=== PATIENT | female | born 1930 ===

== ENCOUNTER 2017-06-08 14:46 | Inpatient (IN) | payer MEDICARE, MEDICAID ==
[2017-06-08 15:28] VITALS: BMI 26.4
--- NOTE | 2017-06-08 15:49 | ED PDOC ---
Arrival/HPI - General Chief Complaint: Abdominal Pain Time Seen by Provider: 06/08/17 15:26 Historian: Patient, Family (daughter) - History of Present Illness Narrative History of Present Illness (Text): 06/08/17 15:44 This 87 yo female with pmh chronic constipation, dm, htn, presents to this ED with daughter c/o LLQ abdominal pain x 2 week. Patient stated pain has been more frequent. Patient stated she has a decreased appetite. She noted she has been moving her bowel daily, but stool is hard, and very small amount. Patient has been taking Prune tabs daily. Patient denies sob, cp, n/v, urinary symptoms. Time/Duration: Other (2 weeks) Quality: Aching Context: Home Past Medical History - Provider Review Nursing Documentation Reviewed: Yes - Infectious Disease Hx of Infectious Diseases: None - Tetanus Immunization Tetanus Immunization: Up to Date - Reproductive Menopause: Yes - Cardiac Hx Hypertension: Yes Hx Pacemaker: No - Pulmonary Hx Emphysema: Yes - Neurological Hx Paralysis: No - Endocrine/Metabolic Hx Diabetes Mellitus Type 2: Yes - Hematological/Oncological Hx Blood Transfusions: No - Musculoskeletal/Rheumatological Hx Musculoskeletal Disorders: No - Psychiatric Hx Psychophysiologic Disorder: No Hx Anxiety: No Hx Bipolar Disorder: No Hx Depression: No Hx Emotional Abuse: No Hx Hallucinations: No Hx Panic Disorder: No Hx Post Traumatic Stress Disorder: No Hx Psychosis: No Hx Physical Abuse: No Hx Schizophrenia: No Hx Sexual Abuse: No Hx Substance Use: No - Past Surgical History Past Surgical History: No Previous - Anesthesia Hx Anesthesia: Yes Hx Anesthesia Reactions: No Hx Malignant Hyperthermia: No - Suicidal Assessment Feels Threatened In Home Enviroment: No Family/Social History - Physician Review Nursing Documentation Reviewed: Yes Family/Social History: Other (noncontributory) Smoking Status: Never Smoked Hx Alcohol Use: No Hx Substance Use: No Hx Substance Use Treatment: No Allergies/Home Meds Allergies/Adverse Reactions: Allergies atorvastatin calcium [From Lipitor] Allergy (Verified 06/08/17 15:28) DIARRHEA codeine Allergy (Verified 06/08/17 15:28) RASH Home Medications: Home Meds Medication Instructions Recorded Confirmed SITagliptin [Januvia] 50 mg PO DAILY 04/20/13 06/08/17 Ezetimibe [Zetia] 10 mg PO DAILY 07/30/15 06/08/17 Losartan [Cozaar] 100 mg PO DAILY 07/30/15 06/08/17 Rosuvastatin Calcium [Crestor] 20 mg PO DAILY 07/30/15 06/08/17 Budesonide [Pulmicort Respules] 0.5 mg IH Q12H 04/25/17 06/08/17 Carvedilol [Coreg] 3.125 mg PO BID 04/25/17 06/08/17 Cholecalciferol (Vitamin D3) 50,000 units PO Q7D 04/25/17 06/08/17 [Vitamin D3] Empagliflozin [Jardiance] 25 mg PO DAILY 04/25/17 06/08/17 Levalbuterol [Xopenex] 0.63 mg IH Q8H 04/25/17 06/08/17 Potassium Chloride [K-Tab ER] 10 meq PO DAILY 04/25/17 06/08/17 amLODIPine [Norvasc] 2.5 mg PO DAILY 04/25/17 06/08/17 Review of Systems - Review of Systems Constitutional: Normal. absent: Fatigue, Weight Change, Fevers Eyes: Normal ENT: Normal Respiratory: Normal. absent: SOB, Cough Cardiovascular: Normal. absent: Chest Pain, Palpitations Gastrointestinal: Abdominal Pain, Constipation. absent: Nausea, Vomiting Genitourinary Female: Normal. absent: Dysuria, Frequency, Hematuria Musculoskeletal: Normal. absent: Back Pain Skin: Normal. absent: Rash Neurological: Normal. absent: Headache, Dizziness, Focal Weakness, Gait Changes , Speech Changes Endocrine: Normal Hemo/Lymphatic: Normal Psychiatric: Normal Physical Exam Vital Signs Temp Pulse Resp BP Pulse Ox 06/08/17 15:22 98.7 F 94 H 18 126/80 96 Temperature: Afebrile Blood Pressure: Normal Pulse: Regular Respiratory Rate: Normal Appearance: Positive for: Well-Appearing, Non-Toxic, Comfortable Pain Distress: None Mental Status: Positive for: Alert and Oriented X 3 - Systems Exam Head: Present: Atraumatic, Normocephalic Pupils: Present: PERRL Extroacular Muscles: Present: EOMI Conjunctiva: Present: Normal Mouth: Present: Moist Mucous Membranes Neck: Present: Normal Range of Motion Respiratory/Chest: Present: Clear to Auscultation, Good Air Exchange. No: Respiratory Distress, Accessory Muscle Use Cardiovascular: Present: Regular Rate and Rhythm, Normal S1, S2. No: Murmurs Abdomen: Present: Tenderness (Mild LLQ abd. tenderness), Normal Bowel Sounds. No: Distention, Peritoneal Signs, Rebound, Guarding Back: Present: Normal Inspection. No: CVA Tenderness Upper Extremity: Present: Normal Inspection, Normal ROM. No: Cyanosis, Edema Lower Extremity: Present: Normal Inspection, Normal ROM. No: Edema Neurological: Present: GCS=15, CN II-XII Intact, Speech Normal, Motor Func Grossly Intact, Normal Sensory Function, Normal Cerebellar Funct, Gait Normal, Memory Normal Skin: Present: Warm, Dry, Normal Color. No: Rashes Psychiatric: Present: Alert, Oriented x 3, Normal Insight, Normal Concentration Medical Decision Making ED Course and Treatment: 06/08/17 21:[address] Dozier regarding Dx. diverticulitis. He recommended NPO, and agres with plan for admission. Re-evaluation Time: 21:39 Reassessment Condition: Re-examined, Improving,but remains with symptoms - Lab Interpretations Lab Results: 06/08/17 16:06 06/08/17 16:06 Lab Results 06/08/17 16:06: Sodium 139, Potassium 4.1, Chloride 99, Carbon Dioxide 29, Anion Gap 15, BUN 17, Creatinine 0.9, Est GFR ( Amer) > 60, Est GFR (Non- Af Amer) 59, Random Glucose 133 H, Calcium 10.0, Total Bilirubin 0.5, AST 35, ALT 26, Alkaline Phosphatase 73, Total Protein 7.7, Albumin 4.4, Globulin 3.3, Albumin/Globulin Ratio 1.3, Amylase 117, Lipase 100 06/08/17 16:06: PT 13.0 H, INR 1.14 H, APTT 26.2 06/08/17 16:06: WBC 12.0 H D, RBC 4.02, Hgb 12.5, Hct 37.8, MCV 94.0, MCH 31.1, MCHC 33.1, RDW 13.0, Plt Count 202, MPV 11.0, Gran % 78.1 H, Lymph % (Auto) 10.0 L, [place] % (Auto) 8.7 H, Eos % (Auto) 2.9, Baso % (Auto) 0.3, Gran # 9.35 H , Lymph # 1.2, [place] # 1.0 H, Eos # 0.4, Baso # 0.04 I have reviewed the lab results: Yes Interpretation: Abnormal lab values (elevated WBC) - RAD Interpretation Narrative RAD Interpretations (Text): 06/08/17 21:13 [facility] Division of Radiology [address] [place] [address] Tel. no. Patient Name: ALEYDA REYNAGA Pt. Address: [address] [place] [address]. Rec #: [id number] [place] [address]: Yajaira Easton PA-C Pt Order Location: ED : 1930 Female Age: 87 Order #: [id number] Reason for exam: LLQ abd. pain r/o obstruction CT Scan ABD PELVIS PO IV CONTRAST Exam Date: 06/08/17 This imaging exam was performed at [facility] EXAM: CT Abdomen and Pelvis With Intravenous Contrast CLINICAL HISTORY: 87 years old, female; Pain; Abdominal pain; Localized; Left lower quadrant (llq); Prior surgery; Surgery type: Cardiac cath 5 years ago; Additional info: Llq abd. Pain R/O obstruction TECHNIQUE: Axial computed tomography images of the abdomen and pelvis with intravenous contrast. All CT scans at this facility use one or more dose reduction techniques, viz.: automated exposure control; ma/kV adjustment per patient size (including targeted exams where dose is matched to indication; i.e. head); or iterative reconstruction technique. Coronal and sagittal reformatted images were created and reviewed. CONTRAST: 93 mL of OMNI 350 administered intravenously. COMPARISON: CT - ABD PELVIS PO CONTRAST ONLY 2016-06-08 07:37 FINDINGS: Limitations: Motion artifact - mild. Lower thorax: Mild peripheral atelectasis/scarring. 0.3 cm nodule vs focal scarring right lower lobe. Moderate-sized hiatal hernia. ABDOMEN: Liver: Unremarkable. No mass. Gallbladder and bile ducts: No calcified stones. No ductal dilation. Pancreas: Fat containing lesion or focal fatty replacement head of pancreas , doubtful significance. No ductal dilation. Spleen: No splenomegaly. Adrenals: No mass. Kidneys and ureters: Few too small to characterize lesions within kidneys. No hydronephrosis. Stomach and bowel: Scattered diverticula within colon. Moderate mural thickening short segment of distal sigmoid colon. Mild stranding within adjacent fat. No obstruction. Appendix: Normal caliber. No inflammation. PELVIS: Bladder: Unremarkable. Reproductive: Unremarkable as visualized. ABDOMEN and PELVIS: Intraperitoneal space: No significant fluid collection. No free air. Bones/joints: Mild degenerative changes of spine. No acute fracture. Soft tissues: Tiny umbilical hernia containing fat. Vasculature: Moderate atherosclerotic disease. No aneurysm. Retroaortic LEFT renal vein. Lymph nodes: No pathologically enlarged lymph nodes. IMPRESSION: 1. Findings compatible with acute diverticulitis of sigmoid colon. Recommend endoscopy following resolution. 2. Pulmonary nodules. For low-risk patients, no follow-up is necessary. For high-risk patients (smoking history or other known risk factors) an optional CT at 12 months could be performed. 3. Incidental/non-acute findings are described above. Dictated By: Salomón Freitas MD Dictated Date/Time: 06/08/172048 Signed By: Salomón Freitas MD Date Signed: 2048 Transcribed By: AALIYAH Transcribe Date/Time : 06/08/172048 [id number] Radiology Orders: 06/08/17 15:49 ABD PELVIS PO & IV CONTRAST [CT] Stat - Medication Orders Current Medication Orders: Ciprofloxacin (Cipro 400mg/200ml Dsw) 400 mg in 200 mls @ 133.3 mls/hr IVPB STAT STA PRN Reason: Protocol Stop: 06/08/17 22:43 Metronidazole (Flagyl) 500 mg in 100 mls @ 100 mls/hr IVPB STAT STA PRN Reason: Protocol Stop: 06/08/17 22:13 Discontinued Medications Famotidine (Pepcid) 20 mg IVP STAT STA Stop: 06/08/17 15:50 Last Admin: 06/08/17 16:16 Dose: 20 mg IVP Administration Document 06/08/17 16:16 RD (Rec: 06/08/17 16:16 RD [facility] [id number]) Charges for Administration # of IVP Administrations 1 Sodium Chloride (Sodium Chloride 0.9%) 500 mls @ 999 mls/hr IV .Q31M STA Stop: 06/08/17 16:21 Last Admin: 06/08/17 16:16 Dose: 999 mls/hr eMAR Start Stop Document 06/08/17 16:16 RD (Rec: 06/08/17 16:16 RD [facility] [id number]) Intravenous Solution Start Date 06/08/17 Start Time 16:16 End Date 06/08/17 End time 17:16 Total Infusion Time 60 Disposition/Present on Arrival - Present on Arrival Any Indicators Present on Arrival: No History of DVT/PE: No History of Uncontrolled Diabetes: No Urinary Catheter: No History of Decub. Ulcer: No History Surgical Site Infection Following: None - Disposition Have Diagnosis and Disposition been Completed?: Yes Diagnosis: Diverticulitis of sigmoid colon Disposition: HOSPITALIZED Disposition Time: 21:40 Patient Plan: Admission Condition: STABLE Referrals: Omer Olguin MD [Primary Care Provider] - Follow up with primary Forms: [employer] (Lithuanian)
[2017-06-08] MEDS ORDERED: Sodium Chloride 0.9% 500 ML IV STA (15:51)
[2017-06-08] MEDS ORDERED: Iohexol 240 (50 ml) ONE (15:54)
[2017-06-08 16:28] LABS: BASO # 0.04 K/mm3 (0.0-2.0); BASO % 0.3 % (0.0-3.0); EOS # 0.4 (0.0-0.7); EOS % 2.9 % (1.5-5.0); GRAN # 9.35 (1.4-6.5); GRAN % 78.1 % (50.0-68.0); HEMOGLOBIN 12.5 g/dL (12.0-16.0); LYMPH # 1.2 (1.2-3.4); MEAN CORPUSCULAR HEMOGLOBIN 31.1 pg (25.0-35.0); MEAN CORPUSCULAR HGB CONC 33.1 g/dl (31.0-37.0); MONO % 8.7 % (1.0-6.0); RBC 4.02 10^6/uL (3.5-6.1)
[2017-06-08 16:35] LABS: ALB/GLOB RATIO 1.3 (1.1-1.8); ALBUMIN 4.4 g/dL (3.0-4.8); ALT/SGPT 26 U/L (7-56); AMYLASE 117 U/L (35-125); AST/SGOT 35 U/L (14-36); BLOOD UREA NITROGEN 17 mg/dL (7-21); GFR AFRICAN-AMERICAN > 60; GFR NON-AFRICAN AMERICAN 59; LIPASE 100 U/L (23-300)
[2017-06-08 16:40] LABS: INR 1.14 (0.93-1.08); PARTIAL THROMBOPLASTIN TIME 26.2 Seconds (25.1-36.5)
[2017-06-08] MEDS ORDERED: Iohexol 350 MG/100 ML VIAL ONE (18:14)
--- NOTE | 2017-06-08 20:49 | CT ---
EXAM: CT Abdomen and Pelvis With Intravenous Contrast CLINICAL HISTORY: 87 years old, female; Pain; Abdominal pain; Localized; Left lower quadrant (llq); Prior surgery; Surgery type: Cardiac cath 5 years ago; Additional info: Llq abd. Pain R/O obstruction TECHNIQUE: Axial computed tomography images of the abdomen and pelvis with intravenous contrast. All CT scans at this facility use one or more dose reduction techniques, viz.: automated exposure control; ma/kV adjustment per patient size (including targeted exams where dose is matched to indication; i.e. head); or iterative reconstruction technique. Coronal and sagittal reformatted images were created and reviewed. CONTRAST: 93 mL of OMNI 350 administered intravenously. COMPARISON: CT - ABD PELVIS PO CONTRAST ONLY 2016-06-08 07:37 FINDINGS: Limitations: Motion artifact - mild. Lower thorax: Mild peripheral atelectasis/scarring. 0.3 cm nodule vs focal scarring right lower lobe. Moderate-sized hiatal hernia. ABDOMEN: Liver: Unremarkable. No mass. Gallbladder and bile ducts: No calcified stones. No ductal dilation. Pancreas: Fat containing lesion or focal fatty replacement head of pancreas, doubtful significance. No ductal dilation. Spleen: No splenomegaly. Adrenals: No mass. Kidneys and ureters: Few too small to characterize lesions within kidneys. No hydronephrosis. Stomach and bowel: Scattered diverticula within colon. Moderate mural thickening short segment of distal sigmoid colon. Mild stranding within adjacent fat. No obstruction. Appendix: Normal caliber. No inflammation. PELVIS: Bladder: Unremarkable. Reproductive: Unremarkable as visualized. ABDOMEN and PELVIS: Intraperitoneal space: No significant fluid collection. No free air. Bones/joints: Mild degenerative changes of spine. No acute fracture. Soft tissues: Tiny umbilical hernia containing fat. Vasculature: Moderate atherosclerotic disease. No aneurysm. Retroaortic LEFT renal vein. Lymph nodes: No pathologically enlarged lymph nodes. IMPRESSION: 1. Findings compatible with acute diverticulitis of sigmoid colon. Recommend endoscopy following resolution. 2. Pulmonary nodules. For low-risk patients, no follow-up is necessary. For high-risk patients (smoking history or other known risk factors) an optional CT at 12 months could be performed. 3. Incidental/non-acute findings are described above.
[2017-06-08] MEDS ORDERED: Ciprofloxacin 400mg/200ml D5W 400 MG/200 ML BAG IVPB STA (21:13)
[2017-06-08] MEDS ORDERED: metroNIDAZOLE IV 500 mg/100 ml 500 MG/100 ML BAG IVPB STA (21:14)
[2017-06-08 23:01] LABS: URINE BILIRUBIN NEGATIVE (NEGATIVE); URINE BLOOD NEGATIVE (NEGATIVE); URINE GLUCOSE (UA) NEGATIVE (NEGATIVE); URINE LEUKOCYTE ESTERASE MODERATE Leu/uL (NEGATIVE); URINE NITRATE NEGATIVE (NEGATIVE); URINE PROTEIN NEGATIVE mg/dL (<30 mg/dL); URINE UROBILINOGEN 0.2 E.U./dL (<1 E.U./dL)
[2017-06-08 23:02] LABS: URINE COLOR YELLOW (YELLOW)
[2017-06-08 23:03] LABS: URINE APPEARANCE CLEAR (CLEAR)
[2017-06-08 23:22] LABS: URINE RBC 0 - 2 /hpf (0-2)
[2017-06-08 23:23] LABS: URINE EPITHELIAL CELLS 0 - 2 /hpf (0-5)
[2017-06-08] MEDS ORDERED: Sodium Chloride 0.9% 1,000 ML IV SCH (23:30)
--- NOTE | 2017-06-09 01:32 | CP.PCM.HP ---
<Jignesh Cueto - Last Filed: 06/09/17 03:16> History of Present Illness - History of Present Illness History of Present Illness: Jignesh Cueto D.O. PGY-2, Admission H and P CC: abdominal pain/fullness for 2-3 days 87 year old Lithuanian female with a PMH of diverticulosis and previous diverticulitis, DM, emphysema, HTN who presented to [facility] on 06/08 with complaints of lower abdominal pain and fullness for the last 2-3 days. Patient states that the pain started insidiously and began to worsen, non-radiating, located over lower abdomen, worse on LLQ, 9/10 at it's worst, dull with sometimes sharp character, associated with constipation and some nausea but no emesis, not alleviated or worsened by anything. Patient was trying to work through the pain but realized it wasn't improving so given her history thought it best to come in. No recent travel. No sick contacts. Patient admits she does not eat a high fiber diet, is sometimes not compliant with her miralax, but does stay hydrated. PMD: Dr. Olguin PMH: as above PSH: reviewed SH: previous heavy smoker 1ppd x 66 years, quit ~10 years ago, no drugs FH: noncontributory Meds: reviewed Allergies: atorvastatin, codeine (uneasy, tachycardia) Present on Admission - Present on Admission Any Indicators Present on Admission: No Review of Systems - Constitutional Constitutional: absent: Anorexia, Chills - EENT Eyes: absent: Blind Spots, Blurred Vision Ears: absent: Decreased Hearing, Ear Discharge Nose/Mouth/Throat: absent: Epistaxis, Nasal Congestion - Cardiovascular Cardiovascular: absent: Chest Pain, Diaphoresis - Respiratory Respiratory: absent: Cough, Dyspnea - Gastrointestinal Gastrointestinal: Abdominal Pain, Constipation, Nausea. absent: Vomiting - Genitourinary Genitourinary: absent: Dysuria, Hematuria - Musculoskeletal Musculoskeletal: absent: Stiffness, Tingling - Integumentary Integumentary: absent: Pruritus, Rash - Neurological Neurological: absent: Tingling, Tremor Past Patient History - Infectious Disease Hx of Infectious Diseases: None - Tetanus Immunizations Tetanus Immunization: Up to Date - Past Social History Smoking Status: Never Smoked - CARDIAC Hx Hypertension: Yes Hx Pacemaker: No - PULMONARY Hx Emphysema: Yes - NEUROLOGICAL Hx Paralysis: No - ENDOCRINE/METABOLIC Hx Diabetes Mellitus Type 2: Yes - HEMATOLOGICAL/ONCOLOGICAL Hx Blood Transfusions: No - MUSCULOSKELETAL/RHEUMATOLOGICAL Hx Musculoskeletal Disorders: No - PSYCHIATRIC Hx Psychophysiologic Disorder: No Hx Anxiety: No Hx Bipolar Disorder: No Hx Depression: No Hx Emotional Abuse: No Hx Hallucinations: No Hx Panic Symptoms: No Hx Post Traumatic Stress Disorder: No Hx Psychosis: No Hx Physical Abuse: No Hx Schizophrenia: No Hx Sexual Abuse: No Hx Substance Use: No - SURGICAL HISTORY Hx Surgeries: Yes (CARDIAC CATH-NO STENTS ABOUT 5 YRS AGO) - ANESTHESIA Hx Anesthesia: Yes Hx Anesthesia Reactions: No Hx Malignant Hyperthermia: No Meds Allergies/Adverse Reactions: Allergies Allergy/AdvReac Type Severity Reaction Status Date / Time atorvastatin calcium Allergy DIARRHEA Verified 06/08/17 15:28 [From Lipitor] codeine Allergy RASH Verified 06/08/17 15:28 Physical Exam - Constitutional Appears: Non-toxic, No Acute Distress - Head Exam Head Exam: ATRAUMATIC, NORMOCEPHALIC - Eye Exam Eye Exam: EOMI, PERRL. absent: Scleral icterus - ENT Exam ENT Exam: Mucous Membranes Moist - Neck Exam Neck exam: Positive for: Normal Inspection - Respiratory Exam Respiratory Exam: Clear to Auscultation Bilateral. absent: Rhonchi, Wheezes - Cardiovascular Exam Cardiovascular Exam: RRR, +S1, +S2. absent: Gallop, Rubs - GI/Abdominal Exam GI & Abdominal Exam: Distended (mild), Soft, Tenderness (LLQ). absent: Firm - Extremities Exam Extremities exam: Negative for: calf tenderness, tenderness - Neurological Exam Neurological exam: Alert, Oriented x3 - Psychiatric Exam Psychiatric exam: Normal Affect, Normal Mood - Skin Skin Exam: Dry, Warm Results - Vital Signs Recent Vital Signs: Last Vital Signs Temp 98.7 F 06/08/17 15:22 Pulse 92 H 06/08/17 22:01 Resp 18 06/08/17 22:01 BP 124/80 06/08/17 22:01 Pulse Ox 97 06/08/17 22:01 - Labs Result Diagrams: 06/08/17 16:06 06/08/17 16:06 Labs: Laboratory Results - last 24 hr 06/08/17 22:33 Urine Color Yellow Urine Appearance Clear Urine pH 6.0 Ur Specific [facility] 1.010 Urine Protein Negative Urine Glucose (UA) Negative Urine Ketones Negative Urine Blood Negative Urine Nitrate Negative Urine Bilirubin Negative Urine Urobilinogen 0.2 Ur Leukocyte Esterase Moderate H Urine RBC 0 - 2 Urine WBC 2 - 5 Ur Epithelial Cells 0 - 2 Assessment & Plan - Assessment and Plan (Free Text) Assessment: 87 year old Lithuanian female with a PMH of diverticulosis and previous diverticulitis, DM, emphysema, HTN who presented with complaints of lower abdominal pain and fullness for the last 2-3 days Plan: 1. Diverticulitis Admitted to med surg CT abd/pelvis reviewed personally and reviewed radiologist read, consistent with acute sigmoid diverticulitis Started on metro/ceftriaxone D1 Started PPI Started toradol PRN pain NPO NS @ 100 Education provided, all questions welcomed and answered 2. DM Hold oral hypoglycemics Started RISS-med Accuchecks 3. HTN NPO so started hydralazine 10mg IVP q6h PRN 4. Emphysema Continue pulmicort Added PRN duonebs for SOB 5. HLD Hold meds now as NPO GI/DVT ppx: PPI/SCDs Patient was seen and examined and case was discussed at length with attending physician. - Date & Time Date: 06/09/17 Time: 01:00 <Bud Dozier MD - Last Filed: 06/10/17 10:55> Results - Vital Signs Recent Vital Signs: Last Vital Signs Temp 97.5 F L 06/10/17 08:38 Pulse 75 06/10/17 08:38 Resp 20 06/10/17 08:38 BP 104/55 L 06/10/17 08:38 Pulse Ox 100 06/10/17 08:38 - Labs Result Diagrams: 06/10/17 09:15 06/10/17 09:15 Labs: Laboratory Results - last 24 hr 06/09/17 06/09/17 06/09/17 12:31 16:42 21:34 WBC RBC Hgb Hct MCV MCH MCHC RDW Plt Count MPV Sodium Potassium Chloride Carbon Dioxide Anion Gap BUN Creatinine Est GFR ( Amer) Est GFR (Non-Af Amer) POC Glucose (mg/dL) 150 H 167 H 107 Random Glucose Calcium Total Bilirubin AST ALT Alkaline Phosphatase Total Protein Albumin Globulin Albumin/Globulin Ratio 06/10/17 06/10/17 06/10/17 06:31 09:15 09:15 WBC 7.2 D RBC 3.41 L Hgb 10.3 L Hct 32.6 L MCV 95.6 MCH 30.2 MCHC 31.6 RDW 13.4 Plt Count 152 MPV 11.0 Sodium 138 Potassium 3.5 L Chloride 104 Carbon Dioxide 25 Anion Gap 12 BUN 8 Creatinine 0.9 Est GFR ( Amer) > 60 Est GFR (Non-Af Amer) 59 POC Glucose (mg/dL) 172 H Random Glucose 223 H Calcium 8.9 Total Bilirubin 0.3 AST 24 ALT 30 Alkaline Phosphatase 57 Total Protein 6.1 Albumin 3.2 Globulin 2.8 Albumin/Globulin Ratio 1.1 Attending/Attestation - Attestation I have personally seen and examined this patient.: Yes I have fully participated in the care of the patient.: Yes I have reviewed all pertinent clinical information: Yes Notes (Text): -I agree with the above H&P completed by the resident physician with the following additions and/or changes: -The patient is an 87 year old woman with a history of diverticulitis, HTN, emphysema, NIDDM and HL who is being admitted for acute sigmoid diverticulitis. She will be started on IV Flagyl and Cipro and kept NPO for bowel rest (with IVF s). The patients response to antibiotic therapy overnight will likely better determine if a GI consult is necessary in the morning.
[2017-06-09 02:04] VITALS: RESP 20
[2017-06-09] MEDS ORDERED: Albuterol-Ipratrop 3 mg / 0.5 (3 ml) UD IH PRN (03:14)
[2017-06-09] MEDS: metroNIDAZOLE IV 500 mg/100 ml 500 MG/100 ML BAG IVPB SCH ×3 (06:22→23:01)
[2017-06-09 06:36] LABS: BASO # 0.04 K/mm3 (0.0-2.0); BASO % 0.3 % (0.0-3.0); EOS # 0.1 (0.0-0.7); EOS % 0.7 % (1.5-5.0); GRAN # 9.75 (1.4-6.5); GRAN % 78.1 % (50.0-68.0); HEMOGLOBIN 11.9 g/dL (12.0-16.0); LYMPH # 1.6 (1.2-3.4); MEAN CELL VOLUME 93.8 fl (80.0-105.0); MEAN CORPUSCULAR HEMOGLOBIN 30.6 pg (25.0-35.0); MEAN CORPUSCULAR HGB CONC 32.6 g/dl (31.0-37.0); MEAN PLATELET VOLUME 11.4 fl (7.0-11.0); MONO % 7.9 % (1.0-6.0); RBC 3.89 10^6/uL (3.5-6.1); RED CELL DISTRIBUTION WIDTH 13.4 % (11.5-14.5); WHITE BLOOD COUNT 12.5 10^3/ul (4.5-11.0)
[2017-06-09 07:11] LABS: ALB/GLOB RATIO 1.2 (1.1-1.8); ALBUMIN 3.8 g/dL (3.0-4.8); ALT/SGPT 27 U/L (7-56); AST/SGOT 30 U/L (14-36); BLOOD UREA NITROGEN 11 mg/dL (7-21); CALCIUM 9.4 mg/dL (8.4-10.5); GFR AFRICAN-AMERICAN > 60; GFR NON-AFRICAN AMERICAN > 60
[2017-06-09] MEDS: Budesonide 0.5 mg/2 ml Inhal Susp UD IH SCH ×3 (07:19→21:04)
[2017-06-09] MEDS: Dextrose 5%/0.45% NS 1,000 ML IV SCH (08:21)
[2017-06-09] MEDS: Insulin Reg-MEDIUM-Coverage SC SCH ×5 (08:32→23:07)
[2017-06-09] MEDS: cefTRIAXone 2 GM IN NS 2 GM/100 ML BAG IVPB SCH (10:00)
[2017-06-09] MEDS ORDERED: Ciprofloxacin 400mg/200ml D5W 400 MG/200 ML BAG IVPB SCH (10:00)
--- NOTE | 2017-06-09 20:21 | CARD ---
APPROVED REPORT EKG Measurement Heart [id number] <Conclusion> Normal sinus rhythm Nonspecific ST and T wave abnormality Abnormal ECG
[2017-06-10] MEDS: Dextrose 5%/0.45% NS 1,000 ML IV SCH (03:40)
[2017-06-10] MEDS: metroNIDAZOLE IV 500 mg/100 ml 500 MG/100 ML BAG IVPB SCH (06:26)
[2017-06-10] MEDS: Insulin Reg-MEDIUM-Coverage SC SCH (06:34)
[2017-06-10] MEDS: Budesonide 0.5 mg/2 ml Inhal Susp UD IH SCH (08:21)
[2017-06-10 08:39] VITALS: BP 104/55; PULSE 75; TEMP 97.5; O2SAT 100
[2017-06-10 09:24] LABS: HEMOGLOBIN 10.3 g/dL (12.0-16.0); MEAN CELL VOLUME 95.6 fl (80.0-105.0); MEAN CORPUSCULAR HEMOGLOBIN 30.2 pg (25.0-35.0); MEAN CORPUSCULAR HGB CONC 31.6 g/dl (31.0-37.0); RBC 3.41 10^6/uL (3.5-6.1); RED CELL DISTRIBUTION WIDTH 13.4 % (11.5-14.5); WHITE BLOOD COUNT 7.2 10^3/ul (4.5-11.0)
[2017-06-10] MEDS ORDERED: Dextrose 5%/0.45% NS 1,000 ML IV SCH (09:24)
[2017-06-10 09:32] LABS: ALB/GLOB RATIO 1.1 (1.1-1.8); ALBUMIN 3.2 g/dL (3.0-4.8); ALT/SGPT 30 U/L (7-56); AST/SGOT 24 U/L (14-36); BLOOD UREA NITROGEN 8 mg/dL (7-21); CALCIUM 8.9 mg/dL (8.4-10.5); GFR AFRICAN-AMERICAN > 60; GFR NON-AFRICAN AMERICAN 59
[2017-06-10] MEDS: cefTRIAXone 2 GM IN NS 2 GM/100 ML BAG IVPB SCH (11:05)
--- NOTE | 2017-06-10 12:34 | CP.PCM.DIS ---
<Emerson Kidd - Last Filed: 06/10/17 12:25> Provider - Provider Date of Admission: 06/08/17 21:40 Attending physician: Bunny Greer MD Primary care physician: Omer Olguin MD Consults: GI: Michelle Time Spent in preparation of Discharge (in minutes): 45 Hospital Course - Lab Results Lab Results: Micro Results 06/08/17 21:58 Blood Blood Culture - Preliminary NO GROWTH AFTER 24 HOURS Most Recent Lab Values WBC 7.2 10^3/ul (4.5-11.0) D 06/10/17 09:15 RBC 3.41 10^6/uL (3.5-6.1) L 06/10/17 09:15 Hgb 10.3 g/dL (12.0-16.0) L 06/10/17 09:15 Hct 32.6 % (36.0-48.0) L 06/10/17 09:15 MCV 95.6 fl (80.0-105.0) 06/10/17 09:15 MCH 30.2 pg (25.0-35.0) 06/10/17 09:15 MCHC 31.6 g/dl (31.0-37.0) 06/10/17 09:15 RDW 13.4 % (11.5-14.5) 06/10/17 09:15 Plt Count 152 10^3/uL (120.0-450.0) 06/10/17 09:15 MPV 11.0 fl (7.0-11.0) 06/10/17 09:15 Gran % 78.1 % (50.0-68.0) H 06/09/17 05:30 Lymph % (Auto) 13.0 % (22.0-35.0) L 06/09/17 05:30 Dare % (Auto) 7.9 % (1.0-6.0) H 06/09/17 05:30 Eos % (Auto) 0.7 % (1.5-5.0) L 06/09/17 05:30 Baso % (Auto) 0.3 % (0.0-3.0) 06/09/17 05:30 Gran # 9.75 (1.4-6.5) H 06/09/17 05:30 Lymph # 1.6 (1.2-3.4) 06/09/17 05:30 Dare # 1.0 (0.1-0.6) H 06/09/17 05:30 Eos # 0.1 (0.0-0.7) 06/09/17 05:30 Baso # 0.04 K/mm3 (0.0-2.0) 06/09/17 05:30 PT 13.0 SECONDS (9.4-12.5) H 06/08/17 16:06 INR 1.14 (0.93-1.08) H 06/08/17 16:06 APTT 26.2 Seconds (25.1-36.5) 06/08/17 16:06 Sodium 138 mmol/L (132-148) 06/10/17 09:15 Potassium 3.5 mmol/L (3.6-5.0) L 06/10/17 09:15 Chloride 104 mmol/L (98-107) 06/10/17 09:15 Carbon Dioxide 25 mmol/L (21-33) 06/10/17 09:15 Anion Gap 12 (10-20) 06/10/17 09:15 BUN 8 mg/dL (7-21) 06/10/17 09:15 Creatinine 0.9 mg/dl (0.7-1.2) 06/10/17 09:15 Est GFR ( Amer) > 60 06/10/17 09:15 Est GFR (Non-Af Amer) 59 06/10/17 09:15 POC Glucose (mg/dL) 180 mg/dL (65-110) H 06/10/17 11:10 Random Glucose 223 mg/dL (70-110) H 06/10/17 09:15 Calcium 8.9 mg/dL (8.4-10.5) 06/10/17 09:15 Total Bilirubin 0.3 mg/dL (0.2-1.3) 06/10/17 09:15 AST 24 U/L (14-36) 06/10/17 09:15 ALT 30 U/L (7-56) 06/10/17 09:15 Alkaline Phosphatase 57 U/L (38-126) 06/10/17 09:15 Total Protein 6.1 g/dL (5.8-8.3) 06/10/17 09:15 Albumin 3.2 g/dL (3.0-4.8) 06/10/17 09:15 Globulin 2.8 gm/dL 06/10/17 09:15 Albumin/Globulin Ratio 1.1 (1.1-1.8) 06/10/17 09:15 Amylase 117 U/L (35-125) 06/08/17 16:06 Lipase 100 U/L (23-300) 06/08/17 16:06 Urine Color Yellow (YELLOW) 06/08/17 22:33 Urine Appearance Clear (CLEAR) 06/08/17 22:33 Urine pH 6.0 (4.7-8.0) 06/08/17:33 Ur Specific [place] 1.010 (1.005-1.035) 06/08/17:33 Urine Protein Negative mg/dL (<30 mg/dL) 06/08/17 22:33 Urine Glucose (UA) Negative mg/dL (NEGATIVE) 06/08/17: Urine Ketones Negative mg/dL (NEGATIVE) 06/08/17 22:33 Urine Blood Negative (NEGATIVE) 06/08/17 22:33 Urine Nitrate Negative (NEGATIVE) 06/08/17 22:33 Urine Bilirubin Negative (NEGATIVE) 06/08/17:33 Urine Urobilinogen 0.2 E.U./dL (<1 E.U./dL) 06/08/17 22:33 Ur Leukocyte Esterase Moderate Mellissa/uL (NEGATIVE) H 06/08/17 22:33 Urine RBC 0 - 2 /hpf (0-2) 06/08/17 22:33 Urine WBC 2 - 5 /hpf (0-6) 06/08/17 22:33 Ur Epithelial Cells 0 - 2 /hpf (0-5) 06/08/17 22:33 - Hospital Course Hospital Course: 87 year old [place] female with a PMH of diverticulosis and previous diverticulitis, DM, emphysema, HTN who presented to [facility] ER on 06/08 with complaints of lower abdominal pain and fullness for 2-3 days prior to admission. Patient stated that the pain started insidiously and began to worsen , non-radiating, located over lower abdomen, worse on LLQ, 9/10 at it's worst, dull with sometimes sharp character, associated with constipation and some nausea but no emesis, not alleviated or worsened by anything. Patient admits she does not eat a high fiber diet, is sometimes not compliant with her miralax , but does stay hydrated. CT abd/pelvis reviewed personally and reviewed radiologist read, consistent with acute sigmoid diverticulitis. WBC mildly elevated at 12.0. Pt was admitted for evaluation and treatment for acute diverticulitis. Today, patient was seen and examined at bedside. Pt states she still had some episodes of diarrhea, but no abdominal pain, hematochezia, or melena. Patient tolerated diet well. As patient's symptoms had improved, she was cleared by GI. Pt was given prescription for 14 day course of ciprofloxacin and flagyl. She was advised to maintain low residue diet and follow up with GI for outpatient colonscopy. Pt was advised to resume her home medications as prescribed. Pt acknowledged and was discharged. Discharge Diagnosis 1. Acute Sigmoid Diverticulitis 2. Diabetes Mellitus Type 2 3. Hypertension 4. COPD Discharge Medications - Ciprofloxacin 500 mg PO BID x14 days - Flagyl 500 mg PO TID x14 days Discharge Exam - Head Exam Head Exam: ATRAUMATIC, NORMOCEPHALIC - Eye Exam Eye Exam: Normal appearance - ENT Exam ENT Exam: Normal Exam - Neck Exam Neck exam: Normal Inspection - Respiratory Exam Respiratory Exam: Clear to PA & Lateral. absent: Rales, Rhonchi, Wheezes - Cardiovascular Exam Cardiovascular Exam: RRR, +S1, +S2. absent: Diastolic murmur, Gallop, Rubs, Systolic Murmur - GI/Abdominal Exam GI & Abdominal Exam: Soft. absent: Distended, Guarding, Rebound, Tenderness - Extremities Exam Extremities exam: normal inspection - Back Exam Back exam: NORMAL INSPECTION - Neurological Exam Neurological exam: Alert, Oriented x3 - Psychiatric Exam Psychiatric exam: Normal Affect, Normal Mood - Skin Skin Exam: Dry, Intact, Normal Color, Warm Discharge Plan - Discharge Medications Prescriptions: Ciprofloxacin HCl [Cipro] 500 mg PO BID 14 Days tablet Metronidazole [Flagyl] 500 mg PO TID 14 Days tablet - Follow Up Plan Condition: STABLE Disposition: HOME/ ROUTINE Instructions: Diverticulitis (DC), Diverticulitis Diet (DC) Additional Instructions: 1. Follow up with PMD within 1 week 2. Follow up with gastroenterology for outpatient colonscopy 3. Complete 14 day course of Ciprofloxacin and Flagyl 4. May resume home medications as prescribed 5. Maintain low residue diet 6. If symptoms worsen please return to ED Referrals: Omer Olguin MD [Primary Care Provider] - Juwan Martinez MD [Staff Provider] - <Deborah Villagran - Last Filed: 06/10/17 15:19> Provider - Provider Date of Admission: 06/08/17 21:40 Attending physician: Bunny Greer MD Primary care physician: Omer Olguin MD Hospital Course - Lab Results Lab Results: Micro Results 06/08/17 21:58 Blood Blood Culture - Preliminary NO GROWTH AFTER 24 HOURS Most Recent Lab Values WBC 7.2 10^3/ul (4.5-11.0) D 06/10/17 09:15 RBC 3.41 10^6/uL (3.5-6.1) L 06/10/17 09:15 Hgb 10.3 g/dL (12.0-16.0) L 06/10/17 09:15 Hct 32.6 % (36.0-48.0) L 06/10/17 09:15 MCV 95.6 fl (80.0-105.0) 06/10/17 09:15 MCH 30.2 pg (25.0-35.0) 06/10/17 09:15 MCHC 31.6 g/dl (31.0-37.0) 06/10/17 09:15 RDW 13.4 % (11.5-14.5) 06/10/17 09:15 Plt Count 152 10^3/uL (120.0-450.0) 06/10/17 09:15 MPV 11.0 fl (7.0-11.0) 06/10/17 09:15 Gran % 78.1 % (50.0-68.0) H 06/09/17 05:30 Lymph % (Auto) 13.0 % (22.0-35.0) L 06/09/17 05:30 Dare % (Auto) 7.9 % (1.0-6.0) H 06/09/17 05:30 Eos % (Auto) 0.7 % (1.5-5.0) L 06/09/17 05:30 Baso % (Auto) 0.3 % (0.0-3.0) 06/09/17 05:30 Gran # 9.75 (1.4-6.5) H 06/09/17 05:30 Lymph # 1.6 (1.2-3.4) 06/09/17 05:30 Dare # 1.0 (0.1-0.6) H 06/09/17 05:30 Eos # 0.1 (0.0-0.7) 06/09/17 05:30 Baso # 0.04 K/mm3 (0.0-2.0) 06/09/17 05:30 PT 13.0 SECONDS (9.4-12.5) H 06/08/17 16:06 INR 1.14 (0.93-1.08) H 06/08/17 16:06 APTT 26.2 Seconds (25.1-36.5) 06/08/17 16:06 Sodium 138 mmol/L (132-148) 06/10/17 09:15 Potassium 3.5 mmol/L (3.6-5.0) L 06/10/17 09:15 Chloride 104 mmol/L (98-107) 06/10/17 09:15 Carbon Dioxide 25 mmol/L (21-33) 06/10/17 09:15 Anion Gap 12 (10-20) 06/10/17 09:15 BUN 8 mg/dL (7-21) 06/10/17 09:15 Creatinine 0.9 mg/dl (0.7-1.2) 06/10/17 09:15 Est GFR ( Amer) > 60 06/10/17 09:15 Est GFR (Non-Af Amer) 59 06/10/17 09:15 POC Glucose (mg/dL) 180 mg/dL (65-110) H 06/10/17 11:10 Random Glucose 223 mg/dL (70-110) H 06/10/17 09:15 Calcium 8.9 mg/dL (8.4-10.5) 06/10/17 09:15 Total Bilirubin 0.3 mg/dL (0.2-1.3) 06/10/17 09:15 AST 24 U/L (14-36) 06/10/17 09:15 ALT 30 U/L (7-56) 06/10/17 09:15 Alkaline Phosphatase 57 U/L (38-126) 06/10/17 09:15 Total Protein 6.1 g/dL (5.8-8.3) 06/10/17 09:15 Albumin 3.2 g/dL (3.0-4.8) 06/10/17 09:15 Globulin 2.8 gm/dL 06/10/17 09:15 Albumin/Globulin Ratio 1.1 (1.1-1.8) 06/10/17 09:15 Amylase 117 U/L (35-125) 06/08/17 16:06 Lipase 100 U/L (23-300) 06/08/17 16:06 Urine Color Yellow (YELLOW) 06/08/17 22:33 Urine Appearance Clear (CLEAR) 06/08/17 22: Urine pH 6.0 (4.7-8.0) 06/08/17 22:33 Ur Specific [place] 1.010 (1.005-1.035) 06/08/17 22:33 Urine Protein Negative mg/dL (<30 mg/dL) 06/08/17 22:33 Urine Glucose (UA) Negative mg/dL (NEGATIVE) 06/08/17 22:33 Urine Ketones Negative mg/dL (NEGATIVE) 06/08/17 22:33 Urine Blood Negative (NEGATIVE) 06/08/17 22:33 Urine Nitrate Negative (NEGATIVE) 06/08/17 22:33 Urine Bilirubin Negative (NEGATIVE) 06/08/17 22:33 Urine Urobilinogen 0.2 E.U./dL (<1 E.U./dL) 06/08/17 22:33 Ur Leukocyte Esterase Moderate Mellissa/uL (NEGATIVE) H 06/08/17 22:33 Urine RBC 0 - 2 /hpf (0-2) 06/08/17 22:33 Urine WBC 2 - 5 /hpf (0-6) 06/08/17 22:33 Ur Epithelial Cells 0 - 2 /hpf (0-5) 06/08/17 22:33 Attending/Attestation - Attestation I have personally seen and examined this patient.: Yes I have fully participated in the care of the patient.: Yes I have reviewed all pertinent clinical information, including history, physical exam and plan: Yes Notes (Text): 06/10/17 15:18 Attending note; Patient seen and examined with the resident. Patient's daughter by the bedside. Patient is 87-year-old female admitted with acute diverticulitis. This is her third episode. Treated with IV Rocephin and Flagyl. Leukocytosis resolved. Abdominal pain resolved. Started on low-residue diet. GI evaluation with Dr. Martinez appreciated. We will get outpatient colonoscopy in 6-8 weeks. Patient's family informed. Discharge home with 14 days of by mouth ciprofloxacin and Flagyl. The patient will follow-up with PMD Dr. Olguin in 3 days.
--- NOTE | 2017-06-10 21:45 | CON ---
DATE: 06/10/2017 GASTROENTEROLOGY CONSULTATION REQUESTING PHYSICIAN: Dr. Villagran REASON FOR CONSULTATION: I have been asked to see this 87-year-old female with known history of diverticulitis, who comes to the hospital with 2 to 3 days of left lower quadrant abdominal pain associated with constipation. The patient denies any fevers or chills. She has had an episode of diverticulitis within the last year. The patient was scheduled for a colonoscopy in 07/2016, but did not show up for her colonoscopy. The patient admits to occasional constipation. She is noncompliant with her MiraLax. PAST MEDICAL HISTORY: Notable for hypertension, type 2 diabetes mellitus, COPD, and diverticulitis. SOCIAL HISTORY: She is a former heavy smoker, having smoked one to two packs a day for over 50 years. She quit about 10 years ago. She denies alcohol use. FAMILY HISTORY: Noncontributory. REVIEW OF SYSTEMS: A 14-point review of systems is notable for left lower quadrant abdominal pain and constipation. MEDICATIONS AT HOME: Include Crestor 20 mg daily, Carvedilol 3.125 mg twice a day, budesonide 0.5 mg q. 12 hours, Norvasc 2.5 mg daily, Januvia 50 mg daily, potassium chloride 10 mg once a day, Cozaar 100 mg daily, Xopenex 0.63 mg q. 8 hours, Zetia 10 mg daily, Jardiance 25 mg daily and vitamin D3 50,000 units weekly. PHYSICAL EXAMINATION: GENERAL: Well-developed female, lying in bed, in no acute distress. VITAL SIGNS: Reveal temperature of 97.5, blood pressure 104/55, heart rate of 75. HEENT: Reveal sclerae to be white. Conjunctivae pink. NECK: Supple. CHEST: Reveal lungs to be clear. HEART: Exam reveals regular rate and rhythm. ABDOMEN: Soft, nontender. EXTREMITIES: Show no edema. LABORATORY DATA: Reveal white blood cell count 7.2, down from 12.0, hemoglobin 10.3. Chemistries reveal potassium of 3.5, blood sugar 223. IMPRESSION: 1. Sigmoid diverticulitis. CT scan of the abdomen and pelvis reveal mural thickening of the sigmoid colon with mild pericolonic inflammation and diverticulosis which confirms the diagnosis. Clinically, she is better this morning without any further abdominal pain. She is moving her bowels and now actually has some diarrhea. 2. Chronic constipation. 3. 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 4. Diabetes mellitus. RECOMMENDATIONS: 1. We will advance the patient to a low residue diet. 2. The patient can be discharged home on 14 days of Cipro 500 b.i.d. and Flagyl 500 t.i.d. 3. I have asked the patient to take MiraLax once to twice a day as needed for constipation. 4. Elective colonoscopy if the patient is agreeable. Juwan Martinez MD
== END 2017-06-10 14:18 | disposition home or self-care (01) | DRG 392 ==
LOC: ED 14:46 → ERH 21:40 → 3RNO 06-09 00:49
PROVIDERS: ADMIT Internal Medicine; ATTEND Internal Medicine
DX: K57.32 Diverticulitis of large intestine without perforation or abscess without bleeding (principal); E11.9 Type 2 diabetes mellitus without complications; J43.9 Emphysema, unspecified; K59.09 Other constipation; I10 Essential (primary) hypertension; D72.829 Elevated white blood cell count, unspecified; Z87.891 Personal history of nicotine dependence

== ENCOUNTER 2017-07-12 08:15 | Day surgery (SDC) | payer MEDICARE, MEDICAID ==
[2017-07-11 11:16] VITALS: BMI 27.3
[2017-07-12] MEDS ORDERED: Propofol 10 mg/ml Inj (20 ML) ONE (09:46)
[2017-07-12] MEDS ORDERED: Sodium Chloride 0.9% 1,000 ML IV SCH (10:30)
[2017-07-12 11:56] VITALS: BP 109/58; PULSE 86; RESP 17; TEMP 97.8; O2SAT 95
[2017-07-13] MEDS ORDERED: Amiodarone 360 mg/D5W 200 ml 360 MG/200 ML BAG IV ONE (11:07)
== END 2017-07-12 12:01 | disposition home or self-care (01) ==
LOC: ENDO 08:15
PROVIDERS: ATTEND Specialist
DX: K55.21 Angiodysplasia of colon with hemorrhage (principal); D12.3 Benign neoplasm of transverse colon; K57.30 Diverticulosis of large intestine without perforation or abscess without bleeding; K64.8 Other hemorrhoids; D64.9 Anemia, unspecified; I12.9 Hypertensive chronic kidney disease with stage 1 through stage 4 chronic kidney disease, or unspecified chronic kidney disease; E11.22 Type 2 diabetes mellitus with diabetic chronic kidney disease; N18.9 Chronic kidney disease, unspecified; J44.9 Chronic obstructive pulmonary disease, unspecified; E78.5 Hyperlipidemia, unspecified; M81.0 Age-related osteoporosis without current pathological fracture
CPT/HCPCS: 45385; 82948; 88305; J2704; J7040 ×2

== ENCOUNTER 2018-04-14 13:17 | Inpatient (IN) | payer MEDICARE, MEDICAID ==
[2018-04-14] MEDS: Albuterol-Ipratrop 3 mg / 0.5 (3 ml) UD IH SCH ×4 (13:40→21:30)
[2018-04-14] MEDS ORDERED: Magnesium Sulfate 2 gm/50 ml 2 GM/50 ML BAG IVPB ONE (13:47)
--- NOTE | 2018-04-14 14:20 | ED PDOC ---
Arrival/HPI - General Chief Complaint: Shortness Of Breath Time Seen by Provider: 04/14/18 13:31 Historian: Patient - History of Present Illness Narrative History of Present Illness (Text): 04/14/18 13:50 88 year old female, whose past medical history includes diverticulosis and previous diverticulitis, diabetes, emphysema, and hypertension, presents to the emergency department complaining of shortness of breath for the past couple of days. Patient was treated with nebulizer and course of steroid by her PMD for the past week. Patient states she felt better with the steroids, but soon after 3 days ago, the shortness of breath started. She denies any recent travel. Patient also complaining of productive cough with white phlegm, but denies any fever, chills, chest pain, nausea, vomiting, diarrhea, urinary symptoms, back p ain, neck pain, headache, dizziness, or any other complaints. PMD: Dr. Olguin Time/Duration: Other (couple days) Symptom Onset: Gradual Symptom Course: Unchanged Activities at Onset: Light Context: Home Past Medical History - Provider Review Nursing Documentation Reviewed: Yes - Infectious Disease Hx of Infectious Diseases: None - Tetanus Immunization Tetanus Immunization: Up to Date - Reproductive Menopause: Yes - Cardiac Hx Hypertension: Yes - Pulmonary Hx Emphysema: Yes - Neurological Hx Paralysis: No - Renal Other/Comment: L renal deficiency - Endocrine/Metabolic Hx Diabetes Mellitus Type 2: Yes - Hematological/Oncological Hx Blood Transfusions: No - Musculoskeletal/Rheumatological Hx Musculoskeletal Disorders: Yes - Gastrointestinal Other/Comment: Peptic ulcers, - Psychiatric Hx Emotional Abuse: No Hx Physical Abuse: No Hx Substance Use: No - Past Surgical History Past Surgical History: No Previous - Surgical History Hx Cardiac Catheterization: Yes - Anesthesia Hx Anesthesia Reactions: No Hx Malignant Hyperthermia: No - Suicidal Assessment Feels Threatened In Home Enviroment: No Family/Social History - Physician Review Nursing Documentation Reviewed: Yes Family/Social History: No Known Family HX Smoking Status: Never Smoked Hx Alcohol Use: (SOCIALLY) Hx Substance Use: No Hx Substance Use Treatment: No Allergies/Home Meds Allergies/Adverse Reactions: Allergies atorvastatin calcium [From Lipitor] Allergy (Verified 06/08/17 15:28) DIARRHEA codeine Allergy (Verified 06/08/17 15:28) RASH Home Medications: Home Meds Medication Instructions Recorded Confirmed RX: Ezetimibe [Zetia] 10 mg PO DAILY 07/30/15 04/14/18 RX: Rosuvastatin Calcium [Crestor] 20 mg PO DAILY 07/30/15 04/14/18 RX: Carvedilol [Coreg] 3.125 mg PO BID 04/25/17 04/14/18 RX: Cholecalciferol (Vitamin D3) 50,000 units PO Q7D 04/25/17 04/14/18 [Vitamin D3] RX: Meclizine [Antivert] 12.5 mg PO PRN 04/14/18 04/14/18 RX: Omeprazole 40 mg PO DAILY 04/14/18 04/14/18 RX: SITagliptin [Januvia] 50 mg PO DAILY 04/14/18 04/14/18 Review of Systems - Physician Review All systems were reviewed & negative as marked: Yes - Review of Systems Constitutional: absent: Fevers, Other (Chills) Respiratory: SOB, Cough Cardiovascular: absent: Chest Pain Gastrointestinal: absent: Diarrhea, Nausea, Vomiting Genitourinary Female: absent: Dysuria, Frequency, Hematuria Musculoskeletal: absent: Back Pain, Neck Pain Neurological: absent: Headache, Dizziness Physical Exam Vital Signs Reviewed: Yes Vital Signs Temp Pulse Resp BP Pulse Ox 04/14/18 13:40 100 F H 98 H 20 119/61 95 Temperature: Febrile Blood Pressure: Normal Pulse: Regular Respiratory Rate: Normal Appearance: Positive for: Well-Appearing, Non-Toxic, Comfortable Pain Distress: None Mental Status: Positive for: Alert and Oriented X 3 - Systems Exam Head: Present: Atraumatic, Normocephalic Pupils: Present: PERRL Extroacular Muscles: Present: EOMI Conjunctiva: Present: Normal Mouth: Present: Moist Mucous Membranes Neck: Present: Normal Range of Motion Respiratory/Chest: Present: Wheezes (expiratory wheeze bilaterally ), Decreased Breath Sounds (mild diminished breath sounds bilaterally). No: Respiratory Distress, Accessory Muscle Use Cardiovascular: Present: Regular Rate and Rhythm, Normal S1, S2. No: Murmurs Abdomen: No: Tenderness, Distention, Peritoneal Signs Back: Present: Normal Inspection Upper Extremity: Present: Normal Inspection. No: Cyanosis, Edema Lower Extremity: Present: Normal Inspection. No: Edema Neurological: Present: GCS=15, CN II-XII Intact, Speech Normal Skin: Present: Warm, Dry, Normal Color. No: Rashes Psychiatric: Present: Alert, Oriented x 3, Normal Insight, Normal Concentration Medical Decision Making ED Course and Treatment: 04/14/18 13:50 Impression: 88 year old female presents complaining of shortness of breath for the past couple days. PE shows mild diminished breath sounds bilaterally and expiratory wheeze bilaterally. Plan: -- EKG -- labs -- Duoneb, Magnesium Sulfate, Solu-Medrol -- Blood Culture -- Influenza A B -- Reassess and disposition Prior Visits: Notes and results from previous visits were reviewed. Progress Notes: PROCEDURE: Chest X-ray Dictator : Precious Carballo MD Report Date : 04/14/2018 14:18:12 IMPRESSION: Mild bibasilar atelectasis. Mild cardiomegaly. EKG shows Sinus tachycardia at 103 BPM. Interpreted by me. 04/14/18 16:03 On re-evaluation, patient feels better, but is still wheezing. Paged hospitalist for admission. 04/14/18 16:[address] Aguirre who is aware and agrees with the plan. Accepts patient to hospitalist service. - Lab Interpretations I have reviewed the lab results: Yes - RAD Interpretation Radiology Orders: 04/14/18 13:46 CHEST PORTABLE [RAD] Stat Graduate Student Instructor: Radiologist - EKG Interpretation Interpreted by ED Physician: Yes Type: 12 lead EKG - Medication Orders Current Medication Orders: Albuterol/Ipratropium (Duoneb 3 Mg/0.5 Mg (3 Ml) Ud) 3 ml IH Q15M KALEE Last Admin: 04/14/18 14:11 Dose: 3 ml Magnesium Sulfate (Magnesium Sulfate 2 Gm/50 Ml Water) 2 gm in 50 mls @ 50 mls/hr IVPB ONCE ONE Stop: 04/14/18 14:46 Last Admin: 04/14/18 14:09 Dose: 50 mls/hr eMAR Start Stop Document 04/14/18 14:09 ARNIE (Rec: 04/14/18 14:09 ARNIE [id number]) Intravenous Solution Start Date 04/14/18 Start Time 14:09 End Date 04/14/18 End time 15:09 Total Infusion Time 60 Discontinued Medications Methylprednisolone (Solu-Medrol) 125 mg IVP STAT STA Stop: 04/14/18 13:46 Last Admin: 04/14/18 14:09 Dose: 125 mg IVP Administration Document 04/14/18 14:09 ARNIE (Rec: 04/14/18 14:09 ARNIE [id number]) Charges for Administration # of IVP Administrations 1 - Scribe Statement The provider has reviewed the documentation as recorded by the Griselda Serrato Provider Scribe Attestation: All medical record entries made by the Scribe were at my direction and personally dictated by me. I have reviewed the chart and agree that the record accurately reflects my personal performance of the history, physical exam, medical decision making, and the department course for this patient. I have also personally directed, reviewed, and agree with the discharge instructions and disposition. Disposition/Present on Arrival - Present on Arrival Any Indicators Present on Arrival: No History of DVT/PE: No History of Uncontrolled Diabetes: No Urinary Catheter: No History of Decub. Ulcer: No History Surgical Site Infection Following: None - Disposition Have Diagnosis and Disposition been Completed?: Yes Diagnosis: COPD (chronic obstructive pulmonary disease) Disposition: HOSPITALIZED Disposition Time: 15:30 Condition: STABLE
--- NOTE | 2018-04-14 14:22 | RAD ---
HISTORY: Cough, rule out infiltrate COMPARISON: Chest x-ray performed 03/20/14 TECHNIQUE: Chest, one view. FINDINGS: LUNGS: Mild bibasilar atelectasis. No focal consolidation. Please note that chest x-ray has limited sensitivity for the detection of pulmonary masses. PLEURA: No significant pleural effusion identified. No definite pneumothorax . CARDIOVASCULAR: Mild cardiomegaly. Atherosclerotic calcification present. OSSEOUS STRUCTURES: Osseous demineralization. Degenerative changes. Acromioclavicular arthropathy. VISUALIZED UPPER ABDOMEN: Unremarkable. OTHER FINDINGS: None. IMPRESSION: Mild bibasilar atelectasis. Mild cardiomegaly.
[2018-04-14 14:28] LABS: ALB/GLOB RATIO 1.2 (1.1-1.8); ALBUMIN 3.8 g/dL (3.0-4.8); ALT/SGPT 24 U/L (7-56); AST/SGOT 24 U/L (14-36); BLOOD UREA NITROGEN 14 mg/dL (7-21); CALCIUM 9.6 mg/dL (8.4-10.5); GFR NON-AFRICAN AMERICAN 52
[2018-04-14 14:46] LABS: B-TYPE NATRIURETIC PEPTIDE 225 pg/mL (0-450); TROPONIN I 0.01 ng/mL
[2018-04-14 15:01] LABS: BASO # 0.03 K/mm3 (0.0-2.0); BASO % 0.2 % (0.0-3.0); EOS # 0.1 (0.0-0.7); EOS % 0.5 % (1.5-5.0); GRAN # 10.72 (1.4-6.5); GRAN % 81.8 % (50.0-68.0); HEMOGLOBIN 9.8 g/dL (12.0-16.0); LYMPH # 1.2 (1.2-3.4); LYMPH % 9.2 % (22.0-35.0); MEAN CELL VOLUME 89.5 fl (80.0-105.0); MEAN CORPUSCULAR HEMOGLOBIN 28.5 pg (25.0-35.0); MEAN CORPUSCULAR HGB CONC 31.8 g/dl (31.0-37.0); MEAN PLATELET VOLUME 10.6 fl (7.0-11.0); MONO # 1.1 (0.1-0.6); MONO % 8.3 % (1.0-6.0); RBC 3.44 10^6/uL (3.5-6.1); RED CELL DISTRIBUTION WIDTH 14.6 % (11.5-14.5); WHITE BLOOD COUNT 13.1 10^3/uL (4.5-11.0)
[2018-04-14] MEDS ORDERED: Albuterol-Ipratrop 3 mg / 0.5 (3 ml) UD IH PRN (18:26)
--- NOTE | 2018-04-14 19:13 | CP.PCM.HP ---
<Nelida Crump - Last Filed: 04/14/18 20:24> History of Present Illness - History of Present Illness History of Present Illness: Nelida Crump DO PGY-1 Medicine H&P Note for Dr. Medina: Pt is a 88 year old female with pmhx of diverticulosis, diverticulitis, DM, emphysema, and HTN who presents to the emergency department complaining of SOB x 3 days. Pt was treated with nebulizer and course of steroid by her PMD for the past week. Pt states she felt better with the steroids initially but then had a return of symptoms 3 days ago. She states that she uses her home nebulizer treatment 4x/day for the last 3 days. Pt also complaining of productive cough with white phlegm, but denies any fever, chills, chest pain, nausea, vomiting, diarrhea, urinary symptoms, back pain, neck pain, headache, dizziness, or any other complaints. Pmhx: Diverticulosis, diverticulitis, DM, emphysema, and HTN Pshx: Denies Meds: Coreg 3.125 BID, Crestor 20 QD, Norvasc 2.5 QD, Zetia 10 QD, losartan 100 QD All: Codeine - rash Social: Denies any tobacco use, admits to beer once every week or 2, no illicit drug use Fam: Non-contributory PMD: Olguin Present on Admission - Present on Admission Any Indicators Present on Admission: No Review of Systems - Review of Systems All systems: reviewed and no additional remarkable complaints except Review of Systems: 12 point ROS reviewed and negative except for whats noted in HPI above. Past Patient History - Infectious Disease Hx of Infectious Diseases: None - Tetanus Immunizations Tetanus Immunization: Up to Date - Past Social History Smoking Status: Never Smoked - CARDIAC Hx Hypertension: Yes - PULMONARY Hx Emphysema: Yes - NEUROLOGICAL Hx Paralysis: No - RENAL Other/Comment: L renal deficiency - ENDOCRINE/METABOLIC Hx Diabetes Mellitus Type 2: Yes - HEMATOLOGICAL/ONCOLOGICAL Hx Blood Transfusions: No - MUSCULOSKELETAL/RHEUMATOLOGICAL Hx Musculoskeletal Disorders: Yes - GASTROINTESTINAL Other/Comment: Peptic ulcers, - PSYCHIATRIC Hx Emotional Abuse: No Hx Physical Abuse: No Hx Substance Use: No - SURGICAL HISTORY Hx Cardiac Catheterization: Yes - ANESTHESIA Hx Anesthesia Reactions: No Hx Malignant Hyperthermia: No Meds Allergies/Adverse Reactions: Allergies Allergy/AdvReac Type Severity Reaction Status Date / Time atorvastatin calcium Allergy DIARRHEA Verified 06/08/17 15:28 [From Lipitor] codeine Allergy RASH Verified 06/08/17 15:28 Physical Exam - Constitutional Appears: Well, Non-toxic, No Acute Distress - Head Exam Head Exam: ATRAUMATIC, NORMAL INSPECTION, NORMOCEPHALIC - Eye Exam Eye Exam: EOMI, Normal appearance, PERRL - Respiratory Exam Respiratory Exam: Decreased Breath Sounds, Wheezes (mild expiratory wheezing noted but is not present diffusely in all lung dobson.), NORMAL BREATHING PATTERN. absent: Accessory Muscle Use, Rales, Rhonchi, Respiratory Distress - Cardiovascular Exam Cardiovascular Exam: RRR, +S1, +S2. absent: Gallop, Rubs - GI/Abdominal Exam GI & Abdominal Exam: Normal Bowel Sounds, Soft. absent: Firm, Rebound, Rigid, Tenderness - Extremities Exam Extremities exam: Positive for: normal capillary refill, normal inspection, pedal pulses present. Negative for: calf tenderness, pedal edema - Back Exam Back exam: NORMAL INSPECTION. absent: CVA tenderness (L), CVA tenderness (R) - Neurological Exam Neurological exam: Alert, Oriented x3 - Psychiatric Exam Psychiatric exam: Normal Affect, Normal Mood - Skin Skin Exam: Dry, Intact, Normal Color, Warm Results - Vital Signs Recent Vital Signs: Last Vital Signs Temp 100 F H 04/14/18 13:40 Pulse 98 H 04/14/18 18:04 Resp 20 04/14/18 18:04 BP 109/73 04/14/18 18:04 Pulse Ox 95 04/14/18 18:04 - Labs Result Diagrams: 04/14/18 14:00 04/14/18 14:00 Labs: Laboratory Results - last 24 hr 04/14/18 04/14/18 04/14/18 14:00 14:00 14:00 WBC 13.1 H RBC 3.44 L Hgb 9.8 L Hct 30.8 L MCV 89.5 D MCH 28.5 MCHC 31.8 RDW 14.6 H Plt Count 261 MPV 10.6 Gran % 81.8 H Lymph % (Auto) 9.2 L Burnett % (Auto) 8.3 H Eos % (Auto) 0.5 L Baso % (Auto) 0.2 Gran # 10.72 H Lymph # (Auto) 1.2 Burnett # (Auto) 1.1 H Eos # (Auto) 0.1 Baso # (Auto) 0.03 Sodium 137 Potassium 4.2 Chloride 101 Carbon Dioxide 28 Anion Gap 12 BUN 14 Creatinine 1.0 Est GFR ( Amer) > 60 Est GFR (Non-Af Amer) 52 Random Glucose 147 H Calcium 9.6 Magnesium 1.9 Total Bilirubin 0.9 AST 24 ALT 24 Alkaline Phosphatase 88 Lactate Dehydrogenase 391 Total Creatine Kinase 34 L Troponin I 0.01 NT-Pro-B Natriuret Pep 225 Total Protein 7.1 Albumin 3.8 Globulin 3.3 Albumin/Globulin Ratio 1.2 Influenza Typ A,B (EIA) Negative for flu a/b Assessment & Plan - Assessment and Plan (Free Text) Assessment: Pt is a 88 year old female with pmhx of diverticulosis, diverticulitis, DM, emphysema, and HTN who presents to the emergency department complaining of SOB x 3 days. In the ED CXR showed mild bibasilar atelectasis, pt is afebrile but has elevated WBC count. Plan: 1. COPD exacerbation: - Already had outpt treatment 1 week ago, but pts symptoms returned - CXR: Mild bibasilar infiltrates - Zithromycin 500 PO today, then 250mg PO x 4 days, emperic coverage - Duonebs Q4 KALEE, Q2 PRN - Solumedrol 40mg IVP - Flu (-) 2. Anemia: - Hgb is 9.8 - Stable from previous admission, will continue to monitor 3. Leukocytosis likely 2/2 steroid use: - Pt is afebrile - Pt on steroids now so likely be elevated upon checking again, but will continue to monitor 4. Hx DM: - ISS - Medium - A1c - Will continue to monitor 5. Hx HTN: - Cont norvasc, coreg, Cozaar 6. Hx HLD: - Cont home Rosuvastatin, Zetia 7. PPX: - DVT: Lovenox 40sc QD - GI: Protnoix 40mg QD <Aroldo Medina - Last Filed: 04/15/18 13:38> Results - Vital Signs Recent Vital Signs: Last Vital Signs Temp 98.1 F 04/15/18 06:19 Pulse 80 04/15/18 11:43 Resp 19 04/15/18 06:19 BP 100/50 L 04/15/18 11:43 Pulse Ox 95 04/14/18 22:10 - Labs Result Diagrams: 04/15/18 06:00 04/15/18 06:00 Labs: Laboratory Results - last 24 hr 04/14/18 04/14/18 04/14/18 14:00 14:00 14:00 WBC 13.1 H RBC 3.44 L Hgb 9.8 L Hct 30.8 L MCV 89.5 D MCH 28.5 MCHC 31.8 RDW 14.6 H Plt Count 261 MPV 10.6 Gran % 81.8 H Lymph % (Auto) 9.2 L Burnett % (Auto) 8.3 H Eos % (Auto) 0.5 L Baso % (Auto) 0.2 Gran # 10.72 H Lymph # (Auto) 1.2 Burnett # (Auto) 1.1 H Eos # (Auto) 0.1 Baso # (Auto) 0.03 Neutrophils % (Manual) Band Neutrophils % Lymphocytes % (Manual) Monocytes % (Manual) Platelet Evaluation Sodium 137 Potassium 4.2 Chloride 101 Carbon Dioxide 28 Anion Gap 12 BUN 14 Creatinine 1.0 Est GFR ( Amer) > 60 Est GFR (Non-Af Amer) 52 POC Glucose (mg/dL) Random Glucose 147 H Calcium 9.6 Magnesium 1.9 Total Bilirubin 0.9 AST 24 ALT 24 Alkaline Phosphatase 88 Lactate Dehydrogenase 391 Total Creatine Kinase 34 L Troponin I 0.01 NT-Pro-B Natriuret Pep 225 Total Protein 7.1 Albumin 3.8 Globulin 3.3 Albumin/Globulin Ratio 1.2 Influenza Typ A,B (EIA) Negative for flu a/b 04/14/18 04/15/18 04/15/18 21:29 05:45 06:00 WBC 11.1 H RBC 3.38 L Hgb 9.4 L Hct 29.7 L MCV 87.9 MCH 27.8 MCHC 31.6 RDW 14.4 Plt Count 253 MPV 10.4 Gran % 93.6 H Lymph % (Auto) 4.1 L Burnett % (Auto) 2.3 Eos % (Auto) 0.0 L Baso % (Auto) 0.0 Gran # 10.37 H Lymph # (Auto) 0.5 L Burnett # (Auto) 0.3 Eos # (Auto) 0.0 Baso # (Auto) 0.00 Neutrophils % (Manual) 86 H Band Neutrophils % 5 H Lymphocytes % (Manual) 6 L Monocytes % (Manual) 3 Platelet Evaluation Normal Sodium Potassium Chloride Carbon Dioxide Anion Gap BUN Creatinine Est GFR ( Amer) Est GFR (Non-Af Amer) POC Glucose (mg/dL) 218 H 253 H Random Glucose Calcium Magnesium Total Bilirubin AST ALT Alkaline Phosphatase Lactate Dehydrogenase Total Creatine Kinase Troponin I NT-Pro-B Natriuret Pep Total Protein Albumin Globulin Albumin/Globulin Ratio Influenza Typ A,B (EIA) 04/15/18 04/15/18 06:00 11:03 WBC RBC Hgb Hct MCV MCH MCHC RDW Plt Count MPV Gran % Lymph % (Auto) Burnett % (Auto) Eos % (Auto) Baso % (Auto) Gran # Lymph # (Auto) Burnett # (Auto) Eos # (Auto) Baso # (Auto) Neutrophils % (Manual) Band Neutrophils % Lymphocytes % (Manual) Monocytes % (Manual) Platelet Evaluation Sodium 135 Potassium 4.2 Chloride 99 Carbon Dioxide 22 Anion Gap 18 BUN 30 H Creatinine 2.4 H Est GFR ( Amer) 23 Est GFR (Non-Af Amer) 19 POC Glucose (mg/dL) 286 H Random Glucose 256 H Calcium 9.2 Magnesium Total Bilirubin 0.4 AST 20 ALT 24 Alkaline Phosphatase 84 Lactate Dehydrogenase Total Creatine Kinase Troponin I NT-Pro-B Natriuret Pep Total Protein 7.1 Albumin 3.7 Globulin 3.3 Albumin/Globulin Ratio 1.1 Influenza Typ A,B (EIA) Attending/Attestation - Attestation I have personally seen and examined this patient.: Yes I have fully participated in the care of the patient.: Yes I have reviewed all pertinent clinical information: Yes Notes (Text): 04/15/18 13:36 Medical record note made by the resident after discussion with my direction and input after the patient was personally seen and examined by me. I have reviewed the chart and agree that the record accurately reflects by personal performance of the history, physical exam, data review, and medical decision-making, in the course for the patient. I have also personally directed the plan of care. 88 year old female with PMH of diverticulosis, diverticulitis, DM, emphysema, and HTN with COPD exacerbation. Continue Neb/Steroid and antibiotics. Monitor blood sugars closely as patient will be receiving steroid . Management plan was discussed in detail with patient. Education was provided.
[2018-04-14] MEDS: Insulin Lispro (humaLOG) MEDIUM Coverage SC SCH (22:56)
[2018-04-15] MEDS: Albuterol-Ipratrop 3 mg / 0.5 (3 ml) UD IH SCH ×6 (00:37→21:00)
[2018-04-15 05:31] VITALS: BMI 23.3
[2018-04-15 06:21] LABS: GRAN # 10.37 (1.4-6.5); GRAN % 93.6 % (50.0-68.0); HEMOGLOBIN 9.4 g/dL (12.0-16.0); LYMPH # 0.5 (1.2-3.4); LYMPH % 4.1 % (22.0-35.0); MEAN CELL VOLUME 87.9 fl (80.0-105.0); MEAN CORPUSCULAR HEMOGLOBIN 27.8 pg (25.0-35.0); MEAN CORPUSCULAR HGB CONC 31.6 g/dl (31.0-37.0); MEAN PLATELET VOLUME 10.4 fl (7.0-11.0); MONO # 0.3 (0.1-0.6); MONO % 2.3 % (1.0-6.0); PLATELET COUNT 253 10^3/uL (120.0-450.0); RBC 3.38 10^6/uL (3.5-6.1); RED CELL DISTRIBUTION WIDTH 14.4 % (11.5-14.5); WHITE BLOOD COUNT 11.1 10^3/uL (4.5-11.0)
[2018-04-15 06:25] LABS: ALB/GLOB RATIO 1.1 (1.1-1.8); ALBUMIN 3.7 g/dL (3.0-4.8); CALCIUM 9.2 mg/dL (8.4-10.5)
[2018-04-15 08:14] LABS: BAND 5 % (0-2); LYMPHOCYTE 6 % (22.0-35.0); MONOCYTE 3 % (1.0-6.0); NEUTROPHIL 86 % (50.0-70.0); PLATELET ESTIMATE NORMAL (NORMAL)
[2018-04-15] MEDS: Insulin Lispro (humaLOG) MEDIUM Coverage SC SCH ×2 (08:25→11:48)
[2018-04-15] MEDS: Pantoprazole 40 mg EC Tab PO SCH (08:25)
--- NOTE | 2018-04-15 09:14 | CARD ---
APPROVED REPORT Date of service: 04/14/2018 EKG Measurement Heart [id number] <Conclusion> Normal sinus rhythm Incomplete LBBB ST & T wave abnormality, consider lateral ischemia Abnormal ECG
[2018-04-15] MEDS ORDERED: Non Formulary Medication (Omeprazole [Omeprazole] 40 MG) PO SCH (10:00)
[2018-04-15] MEDS: MethylPREDNISolone 40 mg Vial IVP SCH (10:05)
[2018-04-15] MEDS: Enoxaparin 40 mg Syringe SC SCH (10:06)
--- NOTE | 2018-04-15 15:54 | CP.PCM.PN ---
<Nelida Crump - Last Filed: 04/15/18 16:31> Subjective - Date & Time of Evaluation Date of Evaluation: 04/15/18 Time of Evaluation: 15:50 - Subjective Subjective: Nelida Crump, PGY-1 Medicine Progress Note for Dr. Medina: Pt was seen and examined this morning at bedside. She states that her breathing is improved from yesterday and that she is doing better. She denies having any acute overnight events. She still admits to a cough, but states that it is improved from admission. She is currently denying fevers, chills, headache, chest pain, SOB, n/v, c/d, abd pain, dysuria, or hematuria. She is denying any other acute complaints at this time. Objective - Vital Signs/Intake and Output Vital Signs (last 24 hours): Temp Pulse Resp BP Pulse Ox 98.1 F 102 H 18 93/48 L 94 L 04/15/18 15:36 04/15/18 15:36 04/15/18 15:36 04/15/18 15:36 04/15/18 15:36 Intake and Output: 04/15/18 04/15/18 06:59 18:59 Intake Total 0 Balance 0 - Medications Medications: Current Medications Acetaminophen (Tylenol 325mg Tab) 650 mg PO Q6H PRN PRN Reason: Fever >100.4 F Acetaminophen (Tylenol 325mg Tab) 650 mg PO Q6H PRN PRN Reason: Headache Albuterol/Ipratropium (Duoneb 3 Mg/0.5 Mg (3 Ml) Ud) 3 ml IH Q2H PRN PRN Reason: Shortness of Breath Albuterol/Ipratropium (Duoneb 3 Mg/0.5 Mg (3 Ml) Ud) 3 ml IH [id number] [facility] Last Admin: 04/15/18 11:10 Dose: 3 ml Azithromycin (Zithromax) 250 mg PO DAILY KALEE; Taper; Protocol Stop: 04/19/18 09:59 Last Admin: 04/15/18 10:05 Dose: 250 mg Budesonide (Pulmicort Respules) 1 mg IH [id number] [facility] Carvedilol (Coreg) 3.125 mg PO BID [facility] Last Admin: 04/15/18 09:57 Dose: Not Given Ezetimibe (Zetia) 10 mg PO DAILY [facility] Last Admin: 04/15/18 10:10 Dose: 10 mg Enoxaparin Sodium (Lovenox) 40 mg SC DAILY [facility]; Protocol Last Admin: 04/15/18 10:06 Dose: 40 mg Famotidine (Pepcid) 20 mg PO 1000,2200 [facility] Last Admin: 04/15/18 10:05 Dose: 20 mg Insulin Human Regular (Humulin R High) 0 units SC ACHS [facility]; Protocol Losartan Potassium (Cozaar) 25 mg PO DAILY [facility] Last Admin: 04/15/18 11:43 Dose: Not Given Methylprednisolone (Solu-Medrol) 40 mg IVP DAILY [facility] Last Admin: 04/15/18 10:05 Dose: 40 mg Non-Formulary Medication (Cholecalciferol (Vitamin D3) [Vitamin D3]) 50,000 units PO Q7D [facility] Crestor ( (Rosuvastatin) 20mg) 20 mg PO DAILY [facility] Pantoprazole Sodium (Protonix Ec Tab) 40 mg PO ACB [facility] Last Admin: 04/15/18 08:25 Dose: 40 mg - Labs Labs: 04/15/18 06:00 04/15/18 06:00 - Constitutional Appears: Well, Non-toxic, No Acute Distress - Head Exam Head Exam: ATRAUMATIC, NORMAL INSPECTION, NORMOCEPHALIC - Eye Exam Eye Exam: EOMI, Normal appearance, PERRL - Respiratory Exam Respiratory Exam: Clear to Ausculation Bilateral, NORMAL BREATHING PATTERN. absent: Accessory Muscle Use, Decreased Breath Sounds, Rales, Rhonchi, Wheezes, Stridor - Cardiovascular Exam Cardiovascular Exam: RRR, +S1, +S2. absent: Gallop, Rubs - GI/Abdominal Exam GI & Abdominal Exam: Soft, Normal Bowel Sounds. absent: Tenderness - Extremities Exam Extremities Exam: Full ROM, Normal Capillary Refill, Normal Inspection - Back Exam Back Exam: NORMAL INSPECTION. absent: CVA tenderness (L), CVA tenderness (R) - Neurological Exam Neurological Exam: Alert, Awake, Oriented x3 - Psychiatric Exam Psychiatric exam: Normal Affect, Normal Mood - Skin Skin Exam: Dry, Intact, Normal Color, Warm Assessment and Plan - Assessment and Plan (Free Text) Assessment: Pt is a 88 year old female with pmhx of diverticulosis, diverticulitis, DM, emphysema, and HTN who presents to the emergency department complaining of SOB x 3 days. In the ED CXR showed mild bibasilar atelectasis, pt is afebrile but has elevated WBC count. Plan: 1. COPD exacerbation: - Already had outpt treatment 1 week ago, but pts symptoms returned - CXR: Mild bibasilar infiltrates - Zithromycin 250mg PO x 4 days, emperic coverage - Duonebs Q4 KALEE, Q2 PRN - Solumedrol 40mg IVP - Flu (-) 2. Anemia: - Hgb is 9.8 - Stable from previous admission, will continue to monitor 3. Leukocytosis likely 2/2 steroid use: - Pt is afebrile - Pt on steroids now so likely be elevated upon checking again, but will continue to monitor 4. Hx DM: - ISS - Medium - A1c - Will continue to monitor 5. Hx HTN: - Cont norvasc, coreg, Cozaar 6. Hx HLD: - Cont home Rosuvastatin, Zetia 7. PPX: - DVT: Lovenox 40sc QD - GI: Protnoix 40mg QD Dispo: Pending PT Case seen and discussed with Dr. Adam Crump DO Internal Medicine Resident PGY-1 <Aroldo Medina - Last Filed: 04/16/18 18:34> Objective - Vital Signs/Intake and Output Vital Signs (last 24 hours): Temp Pulse Resp BP Pulse Ox 98.2 F 93 H 20 142/66 93 L 04/16/18 14:00 04/16/18 14:00 04/16/18 14:00 04/16/18 14:00 04/16/18 14:00 - Medications Medications: Current Medications Acetaminophen (Tylenol 325mg Tab) 650 mg PO Q6H PRN PRN Reason: Fever >100.4 F Acetaminophen (Tylenol 325mg Tab) 650 mg PO Q6H PRN PRN Reason: Headache Albuterol/Ipratropium (Duoneb 3 Mg/0.5 Mg (3 Ml) Ud) 3 ml IH Q2H PRN PRN Reason: Shortness of Breath Albuterol/Ipratropium (Duoneb 3 Mg/0.5 Mg (3 Ml) Ud) 3 ml IH [id number] Last Admin: 04/16/18 15:44 Dose: 3 ml Budesonide (Pulmicort Respules) 1 mg IH [id number] [facility] Last Admin: 04/16/18 07:41 Dose: 1 mg Carvedilol (Coreg) 3.125 mg PO BID [facility] Last Admin: 04/16/18 11:01 Dose: Not Given Ezetimibe (Zetia) 10 mg PO DAILY [facility] Last Admin: 04/15/18 10:10 Dose: 10 mg Enoxaparin Sodium (Lovenox) 30 mg SC DAILY [facility]; Protocol Sodium Chloride (Sodium Chloride 0.9%) 1,000 mls @ 100 mls/hr IV .Q10H [facility] Last Admin: 04/16/18 11:03 Dose: 100 mls/hr Insulin Human Regular (Humulin R High) 0 units SC ACHS [facility]; Protocol Last Admin: 04/16/18 12:53 Dose: 10 units Losartan Potassium (Cozaar) 25 mg PO DAILY [facility] Last Admin: 04/16/18 11:00 Dose: 25 mg Non-Formulary Medication (Cholecalciferol (Vitamin D3) [Vitamin D3]) 50,000 units PO Q7D [facility] Crestor ( (Rosuvastatin) 20mg) 20 mg PO DAILY [facility] Last Admin: 04/16/18 11:03 Dose: Not Given Ondansetron HCl (Zofran Inj) 4 mg IVP Q6H PRN PRN Reason: Nausea/Vomiting Last Admin: 04/15/18 21:31 Dose: 4 mg Pantoprazole Sodium (Protonix Ec Tab) 40 mg PO ACB [facility] Last Admin: 04/16/18 11:00 Dose: 40 mg - Labs Labs: 04/16/18 06:45 04/16/18 06:45 Attending/Attestation - Attestation I have personally seen and examined this patient.: Yes I have fully participated in the care of the patient.: Yes I have reviewed all pertinent clinical information, including history, physical exam and plan: Yes Notes (Text): 04/16/18 18:34 Medical record note made by the resident after discussion with my direction and input after the patient was personally seen and examined by me. I have reviewed the chart and agree that the record accurately reflects by personal performance of the history, physical exam, data review, and medical decision-making, in the course for the patient. I have also personally directed the plan of care.
[2018-04-15] MEDS: Insulin Reg-HIGH-Coverage SC SCH ×2 (18:05→21:56)
[2018-04-16] MEDS: Albuterol-Ipratrop 3 mg / 0.5 (3 ml) UD IH SCH ×7 (00:09→23:40)
[2018-04-16 07:15] LABS: GRAN # 11.16 (1.4-6.5); GRAN % 91.3 % (50.0-68.0); HEMOGLOBIN 8.6 g/dL (12.0-16.0); LYMPH # 0.5 (1.2-3.4); LYMPH % 4.1 % (22.0-35.0); MEAN CELL VOLUME 85.8 fl (80.0-105.0); MEAN CORPUSCULAR HEMOGLOBIN 27.7 pg (25.0-35.0); MEAN CORPUSCULAR HGB CONC 32.3 g/dl (31.0-37.0); MEAN PLATELET VOLUME 10.4 fl (7.0-11.0); MONO # 0.6 (0.1-0.6); MONO % 4.6 % (1.0-6.0); RBC 3.1 10^6/uL (3.5-6.1); RED CELL DISTRIBUTION WIDTH 14.5 % (11.5-14.5); WHITE BLOOD COUNT 12.2 10^3/uL (4.5-11.0)
[2018-04-16 07:40] LABS: ALB/GLOB RATIO 1.1 (1.1-1.8); ALBUMIN 3.4 g/dL (3.0-4.8); CALCIUM 8.9 mg/dL (8.4-10.5)
[2018-04-16] MEDS: Budesonide 0.5 mg/2 ml Inhal Susp UD IH SCH ×2 (07:41→19:45)
[2018-04-16] MEDS ORDERED: CHOLECALCIFEROL 50000 UNIT PO SCH (10:00)
[2018-04-16] MEDS: MethylPREDNISolone 40 mg Vial IVP SCH (10:59)
[2018-04-16] MEDS: Pantoprazole 40 mg EC Tab PO SCH (11:00)
[2018-04-16] MEDS: Insulin Reg-HIGH-Coverage SC SCH ×4 (11:00→21:37)
[2018-04-16] MEDS: Enoxaparin 40 mg Syringe SC SCH (11:02)
[2018-04-16] MEDS: Sodium Chloride 0.9% 1,000 ML IV SCH (11:03)
[2018-04-16] MEDS: CRESTOR 20 MG PO SCH (11:03)
--- NOTE | 2018-04-16 12:10 | RAD ---
Date of service: 04/16/2018 HISTORY: crackles COMPARISON: Portable chest 04/14/2018. FINDINGS: LUNGS: No acute alveolitis bilaterally. Linear atelectasis appears increased at the right base with left chest clear. PLEURA: Trace right pleural effusion appears to be developing. None is seen at the left. No pneumothorax bilaterally. CARDIOVASCULAR: No aortic atherosclerotic calcification present. Stable cardiomediastinal silhouette. No pulmonary vascular congestion. OSSEOUS STRUCTURES: No significant abnormalities. VISUALIZED UPPER ABDOMEN: Normal. OTHER FINDINGS: None. IMPRESSION: Increased linear atelectasis right base. No definite alveolitis however. Trace right pleural effusion now identified.
[2018-04-16] MEDS ORDERED: Enoxaparin 30 mg Syringe SC SCH (12:16)
--- NOTE | 2018-04-16 14:07 | US ---
Date of service: 04/16/2018 PROCEDURE: Ultrasound of the Kidneys HISTORY: r/o hydronephrosis. [facility]ANCE COMPARISON: None available. TECHNIQUE: Grayscale imaging was performed. FINDINGS: RIGHT KIDNEY: Measures: 8.5 cm. Normal in size, contour with mild diffuse increased echogenicity. There is an 8 x 8 x 8 mm exophytic simple cyst in the lower pole. No stone, solid mass lesion or hydronephrosis visualized. LEFT KIDNEY: Measures: 8.7 cm. Normal in size, contour with mild diffuse increased echogenicity. There is a 9 x 7 x 10 mm simple cyst in the upper pole No stone, solid mass lesion or hydronephrosis visualized. OTHER FINDINGS: None. IMPRESSION: Medical renal parenchymal disease. No hydronephrosis or nephrolithiasis. 8 mm exophytic simple cyst in the lower pole of the right kidney and 10 mm simple cyst in the upper pole of the left kidney.
--- NOTE | 2018-04-16 14:09 | US ---
Date of service: 04/16/2018 PROCEDURE: Ultrasound of the Bladder HISTORY: Urinary retention COMPARISON: None available. TECHNIQUE: Sonographic evaluation of the bladder was performed. FINDINGS: Well distended without wall thickening or intraluminal debris. No calculus or gross mass lesion. No free fluid in pelvis. Prevoid Volume: 242.3 cc. Post void residual: 42.2 cc. IMPRESSION: Moderate postvoid residual. No evidence for cystitis or mass.
--- NOTE | 2018-04-16 16:40 | CON ---
DATE: 04/16/2018 REASON FOR CONSULTATION: Acute kidney injury superimposed on chronic kidney disease stage II/III. HISTORY OF PRESENTING ILLNESS: An 88-year lady known to me from outpatient followup. The patient was admitted on 04/14/2018 with complaints of cough, shortness of breath of 5 days duration. The patient has a history of reactive airway disease. She was thought to have COPD exacerbation. She was admitted for steroid treatment and nebulizer treatment. The patient received DuoNeb, Solu-Medrol. The patient was started on empiric antibiotics. She was started on Zithromax 250 mg p.o. daily. At the time of presentation, her creatinine was 1, her WBC count was 13. She had 81% polys. Subsequently, her creatinine maury to 2.4 yesterday and today it is 3.5. Consultation is requested for acute kidney injury. PAST MEDICAL AND SURGICAL HISTORY: NIDDM, hypertension, emphysema, iron deficiency anemia, chronic kidney disease stage II/III, diverticulosis, diverticulitis, osteoporosis, CHF. FAMILY HISTORY: Noncontributory. SOCIAL HISTORY: No smoking, no alcohol use, no IV drug abuse. ALLERGIES: CODEINE. MEDICATIONS AT HOME: Coreg 3.125 b.i.d., Crestor, Norvasc 2.5, Zetia, losartan 100, Lasix 40 b.i.d. The patient states she was not taking her Lasix for the last 1 week because she ran out of it. REVIEW OF SYSTEMS: All systems are reviewed, pertinent positives are mentioned in the history of presenting illness, rest unremarkable. PHYSICAL EXAMINATION: GENERAL: Elderly lady sitting in bed. VITAL SIGNS: Blood pressure 110/59, heart rate 77, respiratory rate 18, temperature 97.9. T-max is 98.4. HEENT: Normocephalic, atraumatic, positive pallor. NECK: Supple, no JVD. LUNGS: Bilateral rhonchi, fine crackles at right mid zone. CARDIAC: S1 and S2, regular rate and rhythm, no murmur, no rub. ABDOMEN: Soft, nondistended, nontender, bowel sounds present. EXTREMITIES: No lower extremity edema. INTAKE AND OUTPUT: Not charted. LABORATORY DATA: WBC 12, hemoglobin 8.6, hematocrit 26.6, platelets 301, polys 91%. Sodium 133, potassium 4.8, chloride 100, CO2 of 23, BUN 63, creatinine 3.5, glucose 269, calcium 8.9, AST 28, ALT 25, albumin 3.4, corrected calcium is 9.4, A1c 6.9. CURRENT MEDICATIONS: Coreg 3.125 b.i.d., Crestor 20, DuoNeb, insulin, Lovenox, Protonix, Pulmicort, normal saline at 100 started yesterday morning, Tylenol, Zetia, Zofran. ASSESSMENT: 1. Acute kidney injury superimposed on chronic kidney disease stage II/III, etiology of acute kidney injury unclear at this time (?) prerenal azotemia secondary to steroids (?), less likely acute interstitial nephritis secondary to Zithromax. 2. Chronic obstructive pulmonary disease exacerbation. 3. Noninsulin-dependent diabetes mellitus well controlled. 4. Hypertension well controlled. 5. History of iron deficiency anemia. PLAN: 1. Hold losartan in the setting of acute kidney injury. 2. Agree with IV fluids. 3. Check urinalysis, urine eosinophils, urine sodium, urine creatinine. 4. Avoid nephrotoxins. 5. Continue respiratory treatments, taper steroids as feasible. 6. Daily electrolytes. 7. Follow up renal and bladder ultrasound. Halley Coreas MD
--- NOTE | 2018-04-16 17:56 | CP.PCM.PN ---
<Dannielle Mast - Last Filed: 04/16/18 17:53> Subjective - Date & Time of Evaluation Date of Evaluation: 04/16/18 Time of Evaluation: 12:00 - Subjective Subjective: INTERNAL MEDICINE PROGRESS NOTE FOR DR. HEMANT Mast PGY1 Pt seen and examined at bedside this am. No acute events overnight. She reports improvement in her breathing. 12 point ROS was negative Objective - Vital Signs/Intake and Output Vital Signs (last 24 hours): Temp Pulse Resp BP Pulse Ox 98.2 F 93 H 20 142/66 93 L 04/16/18 14:00 04/16/18 14:00 04/16/18 14:00 04/16/18 14:00 04/16/18 14:00 - Medications Medications: Current Medications Acetaminophen (Tylenol 325mg Tab) 650 mg PO Q6H PRN PRN Reason: Fever >100.4 F Acetaminophen (Tylenol 325mg Tab) 650 mg PO Q6H PRN PRN Reason: Headache Albuterol/Ipratropium (Duoneb 3 Mg/0.5 Mg (3 Ml) Ud) 3 ml IH Q2H PRN PRN Reason: Shortness of Breath Albuterol/Ipratropium (Duoneb 3 Mg/0.5 Mg (3 Ml) Ud) 3 ml IH [id number] [facility] Last Admin: 04/16/18 15:44 Dose: 3 ml Budesonide (Pulmicort Respules) 1 mg IH [id number] [facility] Last Admin: 04/16/18 07:41 Dose: 1 mg Carvedilol (Coreg) 3.125 mg PO BID [facility] Last Admin: 04/16/18 11:01 Dose: Not Given Ezetimibe (Zetia) 10 mg PO DAILY [facility] Last Admin: 04/15/18 10:10 Dose: 10 mg Enoxaparin Sodium (Lovenox) 30 mg SC DAILY [facility]; Protocol Sodium Chloride (Sodium Chloride 0.9%) 1,000 mls @ 100 mls/hr IV .Q10H [facility] Last Admin: 04/16/18 11:03 Dose: 100 mls/hr Insulin Human Regular (Humulin R High) 0 units SC ACHS [facility]; Protocol Last Admin: 04/16/18 12:53 Dose: 10 units Losartan Potassium (Cozaar) 25 mg PO DAILY [facility] Last Admin: 04/16/18 11:00 Dose: 25 mg Non-Formulary Medication (Cholecalciferol (Vitamin D3) [Vitamin D3]) 50,000 units PO Q7D [facility] Crestor ( (Rosuvastatin) 20mg) 20 mg PO DAILY [facility] Last Admin: 04/16/18 11:03 Dose: Not Given Ondansetron HCl (Zofran Inj) 4 mg IVP Q6H PRN PRN Reason: Nausea/Vomiting Last Admin: 04/15/18 21:31 Dose: 4 mg Pantoprazole Sodium (Protonix Ec Tab) 40 mg PO ACB [facility] Last Admin: 04/16/18 11:00 Dose: 40 mg - Labs Labs: 04/16/18 06:45 04/16/18 06:45 - Constitutional Appears: Well, Non-toxic, No Acute Distress - Head Exam Head Exam: NORMAL INSPECTION, NORMOCEPHALIC - Eye Exam Eye Exam: EOMI, Normal appearance - ENT Exam ENT Exam: Mucous Membranes Moist, Normal Exam - Neck Exam Neck Exam: Full ROM, Normal Inspection - Respiratory Exam Respiratory Exam: NORMAL BREATHING PATTERN Additional comments: crackles LLL - Cardiovascular Exam Cardiovascular Exam: REGULAR RHYTHM, +S1, +S2 - GI/Abdominal Exam GI & Abdominal Exam: Soft, Normal Bowel Sounds - Extremities Exam Extremities Exam: Normal Inspection. absent: Calf Tenderness - Back Exam Back Exam: NORMAL INSPECTION - Neurological Exam Neurological Exam: Alert, Awake, Oriented x3 - Psychiatric Exam Psychiatric exam: Normal Affect, Normal Mood - Skin Skin Exam: Dry, Intact, Warm Assessment and Plan - Assessment and Plan (Free Text) Assessment: Pt is a 88 year old female with pmhx of diverticulosis, diverticulitis, DM, emphysema, and HTN who presents to the emergency department complaining of SOB x 3 days. In the ED CXR showed mild bibasilar atelectasis, pt is afebrile but has elevated WBC count. Plan: COPD exacerbation: - stop azithromycin d/t VANCE - Already had outpt treatment 1 week ago, but pts symptoms returned - CXR: Mild bibasilar infiltrates - Duonebs Q4 KALEE, Q2 PRN - budesonide - Solumedrol 40mg IVP - Flu (-) VANCE - possibly secondary to steroids - start NS @ 100 - stop azithromycin. less likely acute interstitial nephritis - hold losartan - obtain urine electrolytes - bladder/renal ultrasound - consult nephrology, appreciate recs Anemia: - H/h stable - Stable from previous admission, will continue to monitor Leukocytosis likely 2/2 steroid use: - Pt is afebrile - likely reactive from steroids Hx DM: - ISS - Medium - A1c - Will continue to monitor Hx HTN: - Cont norvasc, coreg. stop losartan Hx HLD: - Cont home Rosuvastatin, Zetia PPX: - DVT: Lovenox 30sc QD - GI: Protonix 40mg QD <Aroldo Medina - Last Filed: 04/16/18 18:32> Objective - Vital Signs/Intake and Output Vital Signs (last 24 hours): Temp Pulse Resp BP Pulse Ox 98.2 F 93 H 20 142/66 93 L 04/16/18 14:00 04/16/18 14:00 04/16/18 14:00 04/16/18 14:00 04/16/18 14:00 - Medications Medications: Current Medications Acetaminophen (Tylenol 325mg Tab) 650 mg PO Q6H PRN PRN Reason: Fever >100.4 F Acetaminophen (Tylenol 325mg Tab) 650 mg PO Q6H PRN PRN Reason: Headache Albuterol/Ipratropium (Duoneb 3 Mg/0.5 Mg (3 Ml) Ud) 3 ml IH Q2H PRN PRN Reason: Shortness of Breath Albuterol/Ipratropium (Duoneb 3 Mg/0.5 Mg (3 Ml) Ud) 3 ml IH [id number] [facility] Last Admin: 04/16/18 15:44 Dose: 3 ml Budesonide (Pulmicort Respules) 1 mg IH [id number] [facility] Last Admin: 04/16/18 07:41 Dose: 1 mg Carvedilol (Coreg) 3.125 mg PO BID [facility] Last Admin: 04/16/18 11:01 Dose: Not Given Ezetimibe (Zetia) 10 mg PO DAILY [facility] Last Admin: 04/15/18 10:10 Dose: 10 mg Enoxaparin Sodium (Lovenox) 30 mg SC DAILY [facility]; Protocol Sodium Chloride (Sodium Chloride 0.9%) 1,000 mls @ 100 mls/hr IV .Q10H [facility] Last Admin: 04/16/18 11:03 Dose: 100 mls/hr Insulin Human Regular (Humulin R High) 0 units SC ACHS [facility]; Protocol Last Admin: 04/16/18 12:53 Dose: 10 units Losartan Potassium (Cozaar) 25 mg PO DAILY [facility] Last Admin: 04/16/18 11:00 Dose: 25 mg Non-Formulary Medication (Cholecalciferol (Vitamin D3) [Vitamin D3]) 50,000 units PO Q7D [facility] Crestor ( (Rosuvastatin) 20mg) 20 mg PO DAILY [facility] Last Admin: 04/16/18 11:03 Dose: Not Given Ondansetron HCl (Zofran Inj) 4 mg IVP Q6H PRN PRN Reason: Nausea/Vomiting Last Admin: 04/15/18 21:31 Dose: 4 mg Pantoprazole Sodium (Protonix Ec Tab) 40 mg PO ACB [facility] Last Admin: 04/16/18 11:00 Dose: 40 mg - Labs Labs: 04/16/18 06:45 04/16/18 06:45 Attending/Attestation - Attestation I have personally seen and examined this patient.: Yes I have fully participated in the care of the patient.: Yes I have reviewed all pertinent clinical information, including history, physical exam and plan: Yes Notes (Text): 04/16/18 18:30 Medical record note made by the resident after discussion with my direction and input after the patient was personally seen and examined by me. I have reviewed the chart and agree that the record accurately reflects by personal performance of the history, physical exam, data review, and medical decision-making, in the course for the patient. I have also personally directed the plan of care. 88 year old female with PMH of diverticulosis, diverticulitis, DM, emphysema, and HTN was admitted with COPD exacerbation. cough and dyspnea is improving. Acute renal failure, etiology is unclear.Blood pressure was low yesterday , patient is not oligouric, We will hold ARB, we will get UA,Urine electrolyte and urinary creatinin.We will hydrate patient and will follow up BUN/Creatinin and electrolyte. Management plan was discussed in detail with patient. Education was provided.
[2018-04-16 22:17] LABS: URINE BILIRUBIN NEGATIVE (NEGATIVE); URINE BLOOD NEGATIVE (NEGATIVE); URINE GLUCOSE (UA) NEGATIVE (NEGATIVE); URINE LEUKOCYTE ESTERASE NEGATIVE Leu/uL (NEGATIVE); URINE PROTEIN NEGATIVE mg/dL (<30 mg/dL); URINE UROBILINOGEN 0.2 E.U./dL (<1 E.U./dL)
[2018-04-16 22:40] LABS: URINE APPEARANCE CLEAR (CLEAR); URINE COLOR YELLOW (YELLOW)
[2018-04-17] MEDS: Sodium Chloride 0.9% 1,000 ML IV SCH ×2 (01:41→12:28)
[2018-04-17] MEDS: Albuterol-Ipratrop 3 mg / 0.5 (3 ml) UD IH SCH ×5 (03:50→19:56)
[2018-04-17] MEDS: Budesonide 0.5 mg/2 ml Inhal Susp UD IH SCH ×2 (07:16→19:58)
[2018-04-17 07:19] LABS: BASO # 0.01 K/mm3 (0.0-2.0); BASO % 0.1 % (0.0-3.0); GRAN # 7.23 (1.4-6.5); GRAN % 86.7 % (50.0-68.0); HEMOGLOBIN 8.5 g/dL (12.0-16.0); LYMPH # 0.6 (1.2-3.4); LYMPH % 7.2 % (22.0-35.0); MEAN CELL VOLUME 86.7 fl (80.0-105.0); MEAN CORPUSCULAR HEMOGLOBIN 28.2 pg (25.0-35.0); MEAN CORPUSCULAR HGB CONC 32.6 g/dl (31.0-37.0); MONO # 0.5 (0.1-0.6); RBC 3.01 10^6/uL (3.5-6.1); RED CELL DISTRIBUTION WIDTH 14.6 % (11.5-14.5); WHITE BLOOD COUNT 8.3 10^3/uL (4.5-11.0)
[2018-04-17 07:43] LABS: ALBUMIN 3.2 g/dL (3.0-4.8); CALCIUM 8.9 mg/dL (8.4-10.5)
[2018-04-17] MEDS: Insulin Reg-HIGH-Coverage SC SCH ×4 (08:18→22:08)
[2018-04-17] MEDS: Pantoprazole 40 mg EC Tab PO SCH (08:18)
[2018-04-17] MEDS ORDERED: Albuterol 0.5% Inhal Sol (5 mg/ ml) 20 ml IH STA (09:02)
[2018-04-17] MEDS ORDERED: Sod Polystyrene Sulf 15 gm/60 ml Susp PO STA (09:05)
[2018-04-17] MEDS: Enoxaparin 30 mg Syringe SC SCH (09:21)
[2018-04-17] MEDS: CRESTOR 20 MG PO SCH (09:22)
[2018-04-17] MEDS ORDERED: Albuterol 0.5% Inhal Sol (2.5 mg/0.5 ml) UD IH ONE (09:45)
[2018-04-17] MEDS ORDERED: Sodium Chloride 0.9% 1,000 ML IV SCH (13:44)
--- NOTE | 2018-04-17 14:05 | CARD ---
APPROVED REPORT Date of service: 04/17/2018 EKG Measurement Heart [id number] <Conclusion> Normal sinus rhythm Normal ECG
[2018-04-17 14:21] LABS: ALB/GLOB RATIO 1.1 (1.1-1.8); ALBUMIN 3.2 g/dL (3.0-4.8); BILIRUBIN,DIRECT 0.2 mg/dL (0.0-0.4)
--- NOTE | 2018-04-17 15:30 | CP.PCM.PN ---
Subjective - Date & Time of Evaluation Date of Evaluation: 04/17/18 Time of Evaluation: 13:00 - Subjective Subjective: INTERNAL MEDICINE PROGRESS NOTE FOR DR. HEMANT Mast PGY-1 Pt seen and examined at bedside this am. No acute nursing events overnight. Pt is resting comfortably with family at bedside. She reports no complaints. 12 point ROS is negative. Objective - Vital Signs/Intake and Output Vital Signs (last 24 hours): Temp Pulse Resp BP Pulse Ox 98 F 86 18 99/54 L 96 04/17/18 08:42 04/17/18 09:21 04/17/18 08:42 04/17/18 09:21 04/17/18 08:42 Intake and Output: 04/17/18 04/17/18 06:59 18:59 Intake Total 500 Output Total 1500 Balance -1000 - Medications Medications: Current Medications Acetaminophen (Tylenol 325mg Tab) 650 mg PO Q6H PRN PRN Reason: Fever >100.4 F Acetaminophen (Tylenol 325mg Tab) 650 mg PO Q6H PRN PRN Reason: Headache Last Admin: 04/16/18 21:34 Dose: 650 mg Albuterol/Ipratropium (Duoneb 3 Mg/0.5 Mg (3 Ml) Ud) 3 ml IH Q2H PRN PRN Reason: Shortness of Breath Albuterol/Ipratropium (Duoneb 3 Mg/0.5 Mg (3 Ml) Ud) 3 ml IH [id number] [facility] Last Admin: 04/17/18 11:00 Dose: 3 ml Budesonide (Pulmicort Respules) 1 mg IH [id number] [facility] Last Admin: 04/17/18 07:16 Dose: 1 mg Carvedilol (Coreg) 3.125 mg PO BID [facility] Docusate Sodium (Colace) 100 mg PO BID [facility] Ezetimibe (Zetia) 10 mg PO DAILY [facility] Last Admin: 04/17/18 09:20 Dose: 10 mg Enoxaparin Sodium (Lovenox) 30 mg SC DAILY [facility]; Protocol Last Admin: 04/17/18 09:21 Dose: 30 mg Sodium Chloride (Sodium Chloride 0.9%) 1,000 mls @ 70 mls/hr IV .[id number] [facility] Insulin Human Regular (Humulin R High) 0 units SC ACHS [facility]; Protocol Last Admin: 04/17/18 12:27 Dose: 4 units Losartan Potassium (Cozaar) 25 mg PO DAILY [facility] Last Admin: 04/16/18 11:00 Dose: 25 mg Non-Formulary Medication (Cholecalciferol (Vitamin D3) [Vitamin D3]) 50,000 units PO Q7D [facility] Last Admin: 04/16/18 18:32 Dose: Not Given Crestor ( (Rosuvastatin) 20mg) 20 mg PO DAILY [facility] Last Admin: 04/17/18 09:22 Dose: 20 mg Ondansetron HCl (Zofran Inj) 4 mg IVP Q6H PRN PRN Reason: Nausea/Vomiting Last Admin: 04/15/18 21:31 Dose: 4 mg Pantoprazole Sodium (Protonix Ec Tab) 40 mg PO ACB [facility] Last Admin: 04/17/18 08:18 Dose: 40 mg Prednisone (Prednisone Tab) 30 mg PO DAILY [facility] - Labs Labs: 04/17/18 07:00 04/17/18 12:00 - Constitutional Appears: Well, Non-toxic, No Acute Distress - Head Exam Head Exam: NORMAL INSPECTION, NORMOCEPHALIC - Eye Exam Eye Exam: EOMI, Normal appearance - ENT Exam ENT Exam: Mucous Membranes Moist, Normal Exam - Neck Exam Neck Exam: Normal Inspection - Respiratory Exam Respiratory Exam: Decreased Breath Sounds, Prolonged Expiratory Phase, NORMAL BREATHING PATTERN - Cardiovascular Exam Cardiovascular Exam: REGULAR RHYTHM, +S1, +S2 - GI/Abdominal Exam GI & Abdominal Exam: Soft. absent: Tenderness - Extremities Exam Extremities Exam: Normal Inspection. absent: Calf Tenderness - Back Exam Back Exam: NORMAL INSPECTION - Neurological Exam Neurological Exam: Alert, Awake, Oriented x3 - Psychiatric Exam Psychiatric exam: Flat Affect, Normal Mood - Skin Skin Exam: Dry, Intact, Warm Assessment and Plan - Assessment and Plan (Free Text) Assessment: Pt is a 88 year old female with pmhx of diverticulosis, diverticulitis, DM, emphysema, and HTN who presents to the emergency department complaining of SOB x 3 days. She is admitted for COPD exacerbation. Plan: COPD exacerbation: - stable - CXR: Mild bibasilar infiltrates - Duonebs Q4 KALEE, Q2 PRN - budesonide - predinsone 30mg. Taper afterwards - Flu (-) VANCE - improving - Decrease fluids to NS @70 mls/hr - stop azithromycin. less likely acute interstitial nephritis - hold losartan - obtain urine electrolytes. urine eosinophils. - bladder u/s: moderate post-void residual. renal u/s: medical renal parenchymal disease. no hydronephrosis/nephrolithiasis. simple exophytic cysts - consult nephrology, appreciate recs Hyperkalemia - EKG unchanged - kayexalate given. K resolved to wnl Anemia: - H/h stable - Stable from previous admission, will continue to monitor Leukocytosis likely 2/2 steroid use: - Pt is afebrile - likely reactive from steroids Hx DM: - ISS - Medium - A1c - Will continue to monitor Hx HTN: - Cont norvasc, coreg. stop losartan Hx HLD: - Cont home Rosuvastatin, Zetia PPX: - DVT: Lovenox 30sc QD - GI: Protonix 40mg QD Case seen, examined and discussed with attending physician Dr. Medina
[2018-04-17] MEDS ORDERED: Sodium Chloride 0.45% 1,000 ML IV SCH (15:45)
--- NOTE | 2018-04-17 16:02 | PN ---
DATE: 04/17/2018 SUBJECTIVE: The patient is currently sitting up in bed. No acute distress. The patient remains on IV fluid hydration 70 mL an hour. BUN and creatinine are starting to fall. BUN is 51 with a creatinine of 1.9. The patient's breathing has improved. Her COPD exacerbation appears to be controlled on inhalation therapy and steroid therapy. MEDICATIONS: Medication list reviewed. The patient is currently on vitamin D, Colace, Coreg, losartan is on hold, Crestor, DuoNeb, insulin, Lovenox, p.o. prednisone, Protonix, Pulmicort, normal saline 90 mL an hour, Tylenol p.r.n., Zetia, and Zofran. OBJECTIVE: INTAKE/OUTPUT: Intake 500, output 1500. VITAL SIGNS: Blood pressure 99/54, temperature 98, respiratory rate 18 with a pulse of 86. HEENT: Normocephalic, atraumatic. Conjunctivae are pale. Sclerae are nonicteric. NECK: Supple. No neck vein distention. CHEST: Scattered rhonchi. No rales or wheezing. CARDIOVASCULAR: Regular rate and rhythm without murmurs, rubs or gallops. ABDOMEN: Soft. Bowel sounds normal. No rebound, guarding or masses. EXTREMITIES: Show no lower extremity cyanosis, clubbing or edema. LABORATORY DATA AND IMAGING: Renal ultrasound shows bilateral renal cysts with echogenic kidneys. Bladder ultrasound shows a lgmq-cm-fmaqxuej postvoid residual. Labs: CBC: White blood cell count 8.3 down from maximum of 13.1 on admission, hemoglobin 8.5 down from 9.8 with hydration. Platelet count is 300,000. Chemistry show normal electrolytes. BUN is 63 down to 51, creatinine is 3.5 down to 1.9. Glucose is 182. Calcium 9. Phosphorus 4.4 with a magnesium of 2.5. Liver enzymes are normal. Microbiology: Blood cultures are negative at 72 hours. Admitting chest x-ray showed mild bibasilar atelectasis with mild cardiomegaly. ASSESSMENT: 1. 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 The patient's baseline BUN has been less than 20 with a baseline creatinine slightly lower than 1. Perhaps the elevated BUN and creatinine is in the setting of her using diuretics, angiotensin receptor juvenal therapy and steroids. Her urine eosinophil count and urine electrolytes are pending at the time of this dictation. Of note, her urinalysis showed no white blood cells. No red blood cells. Had no protein. 2. Chronic obstructive pulmonary disease with exacerbation. The patient will continue inhalation therapy and steroids. 3. History of noninsulin-dependent diabetes mellitus, controlled on oral medications. The patient is currently on sliding scale insulin during hospitalization. 4. History of hypertension, controlled on present medical therapy. The patient will continue to hold losartan in light of the elevated BUN and creatinine. 5. History of iron-deficiency anemia in the past. The patient's hemoglobin is currently low at 8.5. We will recheck her iron, total iron-binding capacity and ferritin levels. PLAN: 1. Continue her on losartan. 2. No diuretic therapy. 3. Continue IV fluid hydration. We will switch the patient over to half-normal saline as her sodium is now up to 140. 4. Avoid all nephrotoxins. 5. Await for results of her urine eosinophil stain and urine sodium and creatinine. 6. Discuss the results of her renal and bladder ultrasound with her. In all likelihood, no changes on her kidney ultrasound and she does have a [id number] postvoid residual perhaps evaluation at some future point in time electively. Hugh Cuevas MD
--- NOTE | 2018-04-17 17:45 | CARD ---
APPROVED REPORT Date of service: 04/17/2018 EXAM: Two-dimensional and M-mode echocardiogram with Doppler and color Doppler. INDICATION HX OF CHF/RT SIDED PULM INFILTRATES 2D DIMENSIONS Left Atrium (2D)4.5 (1.6-4.0cm)IVSd1.0 (0.7-1.1cm) LVDd4.0 (3.9-5.9cm)PWd1.1 (0.7-1.1cm) LVDs2.7 (2.5-4.0cm)FS (%) 32.8 % LVEF (%)61.9 (>50%) M-Mode DIMENSIONS Aortic Root2.80 (2.2-3.7cm)Aortic Cusp Exc.1.50 (1.5-2.0cm) Aortic Valve AoV Peak Cfapldke266.0cm/sAoV VTI48.0cmAO Peak GR.20mmHg LVOT Peak Noyuemog171.0cm/sLVOT VTI22.70cmAO Mean GR.10mmHg AI P 1/2 [id number] Mitral Valve MV E Xywmlvix46.7cm/sMV A Cmrumacg639.0cm/sE/A ratio0.8 TDI Lateral E' Peak V10.60cm/sMedial E' Peak V7.21cm/sE/Lateral E'9.3 E/Medial E'13.7 Pulmonary Valve PV Peak Cpbvoivi28.8cm/sPV Peak Grad.4mmHg Tricuspid Valve TR Peak Zykwwyqg400mz/sRAP [id number] Peak Gr.42mmHg [id number] LEFT VENTRICLE The left ventricle is normal size. There is normal left ventricular wall thickness. The left ventricular function is normal. The left ventricular ejection fraction is within the normal range. There is normal LV segmental wall motion. RIGHT VENTRICLE The right ventricle is normal size. The right ventricular systolic function is normal. ATRIA The left atrium is mildly dilated. The right atrium is mildly dilated. The interatrial septum is intact with no evidence for an atrial septal defect. AORTIC VALVE The aortic valve is mildly sclerotic. No aortic regurgitation is present. There is no aortic valvular stenosis. MITRAL VALVE The mitral valve is normal in structure. There is no mitral valve regurgitation noted. TRICUSPID VALVE The tricuspid valve is normal in structure. There is moderate tricuspid regurgitation. PULMONIC VALVE The pulmonary valve is normal in structure. GREAT VESSELS The aortic root is normal in size. The IVC is normal in size and collapses >50% with inspiration. PERICARDIAL EFFUSION There is no pleural effusion. There is no pericardial effusion. <Conclusion> Biatrial enlargement. Normal LV size and systolic function. Moderate tricuspid regurgitation.
[2018-04-17] MEDS: guaiFENesin 200 mg/10 ml Syrup UD PO PRN (20:44)
[2018-04-18] MEDS: Albuterol-Ipratrop 3 mg / 0.5 (3 ml) UD IH SCH ×4 (00:01→11:27)
[2018-04-18] MEDS: guaiFENesin 200 mg/10 ml Syrup UD PO PRN (00:23)
[2018-04-18] MEDS: Budesonide 0.5 mg/2 ml Inhal Susp UD IH SCH (07:17)
[2018-04-18 08:16] LABS: BASO # 0.01 K/mm3 (0.0-2.0); BASO % 0.1 % (0.0-3.0); GRAN # 5.48 (1.4-6.5); GRAN % 80.7 % (50.0-68.0); HEMOGLOBIN 8.8 g/dL (12.0-16.0); LYMPH # 0.8 (1.2-3.4); LYMPH % 12.4 % (22.0-35.0); MEAN CELL VOLUME 89.1 fl (80.0-105.0); MEAN CORPUSCULAR HEMOGLOBIN 28.3 pg (25.0-35.0); MEAN CORPUSCULAR HGB CONC 31.8 g/dl (31.0-37.0); MEAN PLATELET VOLUME 9.7 fl (7.0-11.0); MONO # 0.5 (0.1-0.6); MONO % 6.8 % (1.0-6.0); RBC 3.11 10^6/uL (3.5-6.1); RED CELL DISTRIBUTION WIDTH 14.6 % (11.5-14.5); WHITE BLOOD COUNT 6.8 10^3/uL (4.5-11.0)
[2018-04-18 08:31] LABS: IRON 44 ug/dL (45-180)
[2018-04-18 08:33] LABS: ALB/GLOB RATIO 1.1 (1.1-1.8); ALBUMIN 3.2 g/dL (3.0-4.8); CALCIUM 8.8 mg/dL (8.4-10.5)
[2018-04-18 08:34] LABS: % IRON SATURATION 13 % (20-55); TOTAL IRON BINDING CAPACITY 331 ug/dL (265-497)
[2018-04-18] MEDS: Pantoprazole 40 mg EC Tab PO SCH (09:07)
[2018-04-18] MEDS: Insulin Reg-HIGH-Coverage SC SCH ×2 (09:07→12:54)
[2018-04-18] MEDS: Enoxaparin 30 mg Syringe SC SCH (11:06)
[2018-04-18] MEDS: CRESTOR 20 MG PO SCH (11:07)
[2018-04-18 12:38] LABS: FERRITIN 21.8 ng/mL
--- NOTE | 2018-04-18 13:27 | CP.PCM.DIS ---
<Dannielle Mast - Last Filed: 04/18/18 12:53> Provider - Provider Date of Admission: 04/14/18 16:45 Attending physician: Anu Brar DO Consults: Nephrology: Dr. Halley Coreas Time Spent in preparation of Discharge (in minutes): 45 Hospital Course - Lab Results Lab Results: Micro Results 04/14/18 14:00 Blood Blood Culture - Preliminary NO GROWTH AFTER 3 DAYS 04/14/18 13:45 Blood Blood Culture - Preliminary NO GROWTH AFTER 3 DAYS Most Recent Lab Values WBC 6.8 10^3/uL (4.5-11.0) 04/18/18 08:00 RBC 3.11 10^6/uL (3.5-6.1) L 04/18/18 08:00 Hgb 8.8 g/dL (12.0-16.0) L 04/18/18 08:00 Hct 27.7 % (36.0-48.0) L 04/18/18 08:00 MCV 89.1 fl (80.0-105.0) 04/18/18 08:00 MCH 28.3 pg (25.0-35.0) 04/18/18 08:00 MCHC 31.8 g/dl (31.0-37.0) 04/18/18 08:00 RDW 14.6 % (11.5-14.5) H 04/18/18 08:00 Plt Count 317 10^3/uL (120.0-450.0) 04/18/18 08:00 MPV 9.7 fl (7.0-11.0) 04/18/18 08:00 Gran % 80.7 % (50.0-68.0) H 04/18/18 08:00 Lymph % (Auto) 12.4 % (22.0-35.0) L 04/18/18 08:00 [place] % (Auto) 6.8 % (1.0-6.0) H 04/18/18 08:00 Eos % (Auto) 0.0 % (1.5-5.0) L 04/18/18 08:00 Baso % (Auto) 0.1 % (0.0-3.0) 04/18/18 08:00 Gran # 5.48 (1.4-6.5) 04/18/18 08:00 Lymph # (Auto) 0.8 (1.2-3.4) L 04/18/18 08:00 [place] # (Auto) 0.5 (0.1-0.6) 04/18/18 08:00 Eos # (Auto) 0.0 (0.0-0.7) 04/18/18 08:00 Baso # (Auto) 0.01 K/mm3 (0.0-2.0) 04/18/18 08:00 Neutrophils % (Manual) 86 % (50.0-70.0) H 04/15/18 06:00 Band Neutrophils % 5 % (0-2) H 04/15/18 06:00 Lymphocytes % (Manual) 6 % (22.0-35.0) L 04/15/18 06:00 Monocytes % (Manual) 3 % (1.0-6.0) 04/15/18 06:00 Platelet Evaluation Normal (NORMAL) 04/15/18 06:00 Sodium 139 mmol/L (132-148) 04/18/18 08:00 Potassium 4.5 mmol/L (3.6-5.0) 04/18/18 08:00 Chloride 107 mmol/L (98-107) 04/18/18 08:00 Carbon Dioxide 27 mmol/L (21-33) 04/18/18 08:00 Anion Gap 9 (10-20) L 04/18/18 08:00 BUN 40 mg/dL (7-21) H 04/18/18 08:00 Creatinine 1.3 mg/dl (0.7-1.2) H 04/18/18 08:00 Est GFR ( Amer) 47 04/18/18 08:00 Est GFR (Non-Af Amer) 39 04/18/18 08:00 POC Glucose (mg/dL) 204 mg/dL (65-110) H 04/18/18 11:24 Random Glucose 239 mg/dL (70-110) H 04/18/18 08:00 Hemoglobin A1c 6.9 % (4.2-6.5) H D 04/15/18 06:00 Calcium 8.8 mg/dL (8.4-10.5) 04/18/18 08:00 Phosphorus 3.6 mg/dL (2.5-4.5) 04/18/18 08:00 Magnesium 2.5 mg/dL (1.7-2.2) H 04/18/18 08:00 Iron 44 ug/dL (45-180) L 04/18/18 08:00 TIBC 331 ug/dL (265-497) 04/18/18 08:00 % Saturation 13 % (20-55) L 04/18/18 08:00 Ferritin 21.8 ng/mL 04/18/18 08:00 Total Bilirubin 0.2 mg/dL (0.2-1.3) 04/18/18 08:00 Direct Bilirubin 0.2 mg/dL (0.0-0.4) 04/17/18 12:00 AST 25 U/L (14-36) 04/18/18 08:00 ALT 34 U/L (7-56) 04/18/18 08:00 Alkaline Phosphatase 78 U/L (38-126) 04/18/18 08:00 Lactate Dehydrogenase 391 U/L (333-699) 04/14/18 14:00 Total Creatine Kinase 34 U/L (35-230) L 04/14/18 14:00 Troponin I 0.01 ng/mL 04/14/18 14:00 NT-Pro-B Natriuret Pep 225 pg/mL (0-450) 04/14/18 14:00 Total Protein 6.1 g/dL (5.8-8.3) 04/18/18 08:00 Albumin 3.2 g/dL (3.0-4.8) 04/18/18 08:00 Globulin 2.8 gm/dL 04/18/18 08:00 Albumin/Globulin Ratio 1.1 (1.1-1.8) 04/18/18 08:00 Procalcitonin 0.06 NG/ML (0.19-0.49) L 04/14/18 14:00 Urine Color Yellow (YELLOW) 04/16/18 21:51 Urine Appearance Clear (CLEAR) 04/16/18 21:51 Urine pH 6.0 (4.7-8.0) 04/16/18 21:51 Ur Specific [place] 1.010 (1.005-1.035) 04/16/18 21:51 Urine Protein Negative mg/dL (<30 mg/dL) 04/16/18 21:51 Urine Glucose (UA) Negative mg/dL (NEGATIVE) 04/16/18 21:51 Urine Ketones Negative mg/dL (NEGATIVE) 04/16/18 21:51 Urine Blood Negative (NEGATIVE) 04/16/18 21:51 Urine Nitrate Negative (NEGATIVE) 04/16/18 21:51 Urine Bilirubin Negative (NEGATIVE) 04/16/18 21:51 Urine Urobilinogen 0.2 E.U./dL (<1 E.U./dL) 04/16/18 21:51 Ur Leukocyte Esterase Negative [place]/uL (NEGATIVE) 04/16/18 21:51 Influenza Typ A,B (EIA) Negative for flu a/b (NEGATIVE) 04/14/18 14:00 - Hospital Course Hospital Course: Upon Admission: Pt is a 88 year old female with pmhx of diverticulosis, diverticulitis, DM, emphysema, and HTN who presented to the emergency department complaining of SOB x 3 days. Pt was treated with nebulizer and course of steroid by her PMD for the past week before presentation. Pt stated she felt better with the steroids initially but then had a return of symptoms 3 days before admission. She stated that she used her home nebulizer treatment 4x/day for the last 3 days. Pt also complainedof productive cough with white phlegm, but denied any fever, chills, chest pain, nausea, vomiting, diarrhea, urinary symptoms, back pain, neck pain, headache, dizziness, or any other complaints. Hospital Course: Pt was admitted for COPD exacerbation. She was initially treated with azithromycin, duoneb and solu-medrol IVP. Her respiratory status had improved, however she developed and VANCE while in the hospital. She was evaluated by nephrology. Azithromycin was stopped, steroids were initially held and losartan was held. She was continued on IV hydration. Renal ultrasound revealed no parenchymal disease with simple cysts in the R lower pole and L upper pole, bladder u/s revealed moderate post-void residual. Her VANCE had resolved during hospital course. She was evaluated by PT and was accepted to TCU for rehabilitation. Nephrology recommended resumption of losartan the day after d/c to TCU. Upon Discharge: Pt is doing well, respiratory status has improved, she has been tolerated her duoneb treatments well. She has been ambulating, and tolerating her diet well, no symptoms of dysuria. Her vital signs are stable. She is hemodynamically stable. Her VANCE is resolving. She has been medically optimized. She is stable for discharge to TCU. Discharge Exam - Head Exam Head Exam: NORMAL INSPECTION, NORMOCEPHALIC Discharge Plan - Follow Up Plan Condition: STABLE Disposition: TRANSF TO SNF Instructions: Exacerbation of COPD (DC), Risk Factors for COPD, Flu Vaccine Additional Instructions: While in TCU: Please continue all consultations as ordered Please continue all medications as currently ordered, including prednisone tapered doses as ordered Please obtain CBC's and BMP's every other day PLEASE COLLECT UNCOLLECTED URINE/SADIE STUDIES AND FOBT EITHER BEFORE DC TO TCU OR ONCE SHE ARRIVES IN TCU We have decreased your blood pressure medicine because your blood pressure was in the low end of normal. Goal systolic blood pressure should be around 130mmHg: - Carvedilol (the same) - Losartan decreased to 25 mg daily - amlodipine (discontinued) For your COPD exacerbation, finish the antibiotics, prednisone taper. We added an inhaled steroid with long acting beta agonist for better chronic COPD control. We have prescribed you albuterol short-acting inhaler as needed for wheezes. Follow up within Dr Olguin in 3-5 days. Check your blood pressure everyday. If any change in symptoms, call primary care doctor or go to the emergency room. Referrals: Jasper Olguin MD [Medical Doctor] - <Anu Brar - Last Filed: 04/19/18 14:01> Provider - Provider Date of Admission: 04/14/18 16:45 Attending physician: Anu Brar, Hospital Course - Lab Results Lab Results: Micro Results 04/14/18 14:00 Blood Blood Culture - Preliminary NO GROWTH AFTER 4 DAYS 04/14/18 13:45 Blood Blood Culture - Preliminary NO GROWTH AFTER 4 DAYS Most Recent Lab Values WBC 6.8 10^3/uL (4.5-11.0) 04/18/18 08:00 RBC 3.11 10^6/uL (3.5-6.1) L 04/18/18 08:00 Hgb 8.8 g/dL (12.0-16.0) L 04/18/18 08:00 Hct 27.7 % (36.0-48.0) L 04/18/18 08:00 MCV 89.1 fl (80.0-105.0) 04/18/18 08:00 MCH 28.3 pg (25.0-35.0) 04/18/18 08:00 MCHC 31.8 g/dl (31.0-37.0) 04/18/18 08:00 RDW 14.6 % (11.5-14.5) H 04/18/18 08:00 Plt Count 317 10^3/uL (120.0-450.0) 04/18/18 08:00 MPV 9.7 fl (7.0-11.0) 04/18/18 08:00 Gran % 80.7 % (50.0-68.0) H 04/18/18 08:00 Lymph % (Auto) 12.4 % (22.0-35.0) L 04/18/18 08:00 [place] % (Auto) 6.8 % (1.0-6.0) H 04/18/18 08:00 Eos % (Auto) 0.0 % (1.5-5.0) L 04/18/18 08:00 Baso % (Auto) 0.1 % (0.0-3.0) 04/18/18 08:00 Gran # 5.48 (1.4-6.5) 04/18/18 08:00 Lymph # (Auto) 0.8 (1.2-3.4) L 04/18/18 08:00 [place] # (Auto) 0.5 (0.1-0.6) 04/18/18 08:00 Eos # (Auto) 0.0 (0.0-0.7) 04/18/18 08:00 Baso # (Auto) 0.01 K/mm3 (0.0-2.0) 04/18/18 08:00 Neutrophils % (Manual) 86 % (50.0-70.0) H 04/15/18 06:00 Band Neutrophils % 5 % (0-2) H 04/15/18 06:00 Lymphocytes % (Manual) 6 % (22.0-35.0) L 04/15/18 06:00 Monocytes % (Manual) 3 % (1.0-6.0) 04/15/18 06:00 Platelet Evaluation Normal (NORMAL) 04/15/18 06:00 Sodium 139 mmol/L (132-148) 04/18/18 08:00 Potassium 4.5 mmol/L (3.6-5.0) 04/18/18 08:00 Chloride 107 mmol/L (98-107) 04/18/18 08:00 Carbon Dioxide 27 mmol/L (21-33) 04/18/18 08:00 Anion Gap 9 (10-20) L 04/18/18 08:00 BUN 40 mg/dL (7-21) H 04/18/18 08:00 Creatinine 1.3 mg/dl (0.7-1.2) H 04/18/18 08:00 Est GFR ( Amer) 47 04/18/18 08:00 Est GFR (Non-Af Amer) 39 04/18/18 08:00 POC Glucose (mg/dL) 204 mg/dL (65-110) H 04/18/18 11:24 Random Glucose 239 mg/dL (70-110) H 04/18/18 08:00 Hemoglobin A1c 6.9 % (4.2-6.5) H D 04/15/18 06:00 Calcium 8.8 mg/dL (8.4-10.5) 04/18/18 08:00 Phosphorus 3.6 mg/dL (2.5-4.5) 04/18/18 08:00 Magnesium 2.5 mg/dL (1.7-2.2) H 04/18/18 08:00 Iron 44 ug/dL (45-180) L 04/18/18 08:00 TIBC 331 ug/dL (265-497) 04/18/18 08:00 % Saturation 13 % (20-55) L 04/18/18 08:00 Ferritin 21.8 ng/mL 04/18/18 08:00 Total Bilirubin 0.2 mg/dL (0.2-1.3) 04/18/18 08:00 Direct Bilirubin 0.2 mg/dL (0.0-0.4) 04/17/18 12:00 AST 25 U/L (14-36) 04/18/18 08:00 ALT 34 U/L (7-56) 04/18/18 08:00 Alkaline Phosphatase 78 U/L (38-126) 04/18/18 08:00 Lactate Dehydrogenase 391 U/L (333-699) 04/14/18 14:00 Total Creatine Kinase 34 U/L (35-230) L 04/14/18 14:00 Troponin I 0.01 ng/mL 04/14/18 14:00 NT-Pro-B Natriuret Pep 225 pg/mL (0-450) 04/14/18 14:00 Total Protein 6.1 g/dL (5.8-8.3) 04/18/18 08:00 Albumin 3.2 g/dL (3.0-4.8) 04/18/18 08:00 Globulin 2.8 gm/dL 04/18/18 08:00 Albumin/Globulin Ratio 1.1 (1.1-1.8) 04/18/18 08:00 Procalcitonin 0.06 NG/ML (0.19-0.49) L 04/14/18 14:00 Urine Color Yellow (YELLOW) 04/16/18 21:51 Urine Appearance Clear (CLEAR) 04/16/18 21:51 Urine pH 6.0 (4.7-8.0) 04/16/18 21:51 Ur Specific [place] 1.010 (1.005-1.035) 04/16/18 21:51 Urine Protein Negative mg/dL (<30 mg/dL) 04/16/18 21:51 Urine Glucose (UA) Negative mg/dL (NEGATIVE) 04/16/18 21:51 Urine Ketones Negative mg/dL (NEGATIVE) 04/16/18 21:51 Urine Blood Negative (NEGATIVE) 04/16/18 21:51 Urine Nitrate Negative (NEGATIVE) 04/16/18 21:51 Urine Bilirubin Negative (NEGATIVE) 04/16/18 21:51 Urine Urobilinogen 0.2 E.U./dL (<1 E.U./dL) 04/16/18 21:51 Ur Leukocyte Esterase Negative [place]/uL (NEGATIVE) 04/16/18 21:51 Influenza Typ A,B (EIA) Negative for flu a/b (NEGATIVE) 04/14/18 14:00 Attending/Attestation - Attestation I have personally seen and examined this patient.: Yes I have fully participated in the care of the patient.: Yes I have reviewed all pertinent clinical information, including history, physical exam and plan: Yes Notes (Text): Patient seen and examined by me with resident 10:35AM on 04/18/18. Case including discharge plan discussed with resident. Agree with above with following additions/corrections. Patient is an 88-year-old female past medical history significant for diverticulosis, diverticulitis, type 2 diabetes, emphysema, and hypertension that presented to the emergency room with shortness of breath. Please see H&P for full details. Patient was admitted with COPD exacerbation, anemia, leukocytosis, type 2 diabetes, hypertension, and hyperlipidemia. Chest xray on 04/14/18 per radiologist showed mild bibasilar atelectasis and mild cardiomegaly. Chest xray 04/16/18 per radiologist showed increased linear atelectasis right base, no definite alveolitis howeever, trace right pleural effusion. 2-D echo per evaluation manager showed biatrial enlargement, normal LV size and systolic function, moderate tricuspid regurgitation, LVEF approximately 61.9%. Patient placed nebulizer treatments and Solu-Medrol. Leukocytosis resolved. She developed acute kidney injury. Patient was placed on IV fluids. Nephrology was consulted. Zithromax which was stopped. Bladder ultrasound per radiologist showed moderate postvoid residual, no evidence for cystitis or mass. Renal ultrasound radiologist showed medical renal parenchymal disease, no hydronephrosis or nephrolithiasis, 8 mm exophytic simple cyst in the lower pole of the right kidney and 10 mm simple cyst in the upper pole of left kidney. Creatinine improved with IV fluids. She was cleared for discharge by nephrology. Patient was also found to have chronic anemia. H&H was stable. She was continued on home Norvasc and Coreg for hypertension. Norvasc was then stopped and patient was restarted on Cozaar at a lower dose after improvement in renal function. Patient was continued on study of for history of hyperlipidemia. Patient was feeling much better. Patient states she was feeling constipated. She was started on Colace. Patient was cleared for discharge by consultants. She was seen by physical therapy who recommended TCU. She was discharged to TCU. On day of discharge, patient states she is feeling better. States she has a cough at night. Patient states she has some reproducible left sided chest pain secondary to cough. Patient also states she has not had a bowel movement in 3 days. No abdominal pain. No nausea or vomiting. No palpitations. Patient denies shortness of breath. No fevers or chills. No dysuria. No headaches or dizziness. Physical exam: General: Awake and lying in bed in no acute distress HEENT: Normocephalic, atraumatic. Extraocular muscles intact, pupils equal and reactive, no scleral icterus. Oropharynx is pink and moist. Neck is supple. Cardiovascular: Regular rhythm. Normal S1 and S2. No rubs or gallops appreciated Pulmonary: Normal respiratory effort. No rhonchi, rales, or wheezing appreciated. Gastrointestinal: Soft, nondistended. Nontender. Positive bowel sounds all 4 quadrants. Musculoskeletal: Moves all extremities. No calf tenderness. No CVA tenderness. No edema appreciated. Left anterior chest wall tenderness. Central nervous system: AAO x3, CN 2-12 grossly intact. Dermatologic: Skin warm and dry. Please chart for full details. Time spent in discharging the patient including chart review, medication reconciliation, discussion with the patient and patient's daughter at bedside, registered medical transcriptionist, consultants, and nursing staff was 40 minutes.
[2018-04-18 14:08] VITALS: BP 158/75; PULSE 78; RESP 18; TEMP 97.7; O2SAT 93
== END 2018-04-18 15:31 | DRG 191 ==
LOC: ED 13:17 → ERH 16:45 → 5RSO 18:18
PROVIDERS: ADMIT Internal Medicine; ATTEND Hospitalist
DX: J44.1 Chronic obstructive pulmonary disease with (acute) exacerbation (principal); J98.11 Atelectasis; N17.9 Acute kidney failure, unspecified; I13.0 Hypertensive heart and chronic kidney disease with heart failure and stage 1 through stage 4 chronic kidney disease, or unspecified chronic kidney disease; I50.9 Heart failure, unspecified; N18.2 Chronic kidney disease, stage 2 (mild); E11.22 Type 2 diabetes mellitus with diabetic chronic kidney disease; E87.5 Hyperkalemia; M81.0 Age-related osteoporosis without current pathological fracture; D50.9 Iron deficiency anemia, unspecified; E78.5 Hyperlipidemia, unspecified; I07.1 Rheumatic tricuspid insufficiency; D72.829 Elevated white blood cell count, unspecified; Z88.5 Allergy status to narcotic agent; Z79.84 Long term (current) use of oral hypoglycemic drugs

== ENCOUNTER 2018-04-18 15:31 | Inpatient (IN) | payer OTHER, MEDICAID ==
[2018-04-18] MEDS ORDERED: Albuterol-Ipratrop 3 mg / 0.5 (3 ml) UD IH PRN (15:47)
[2018-04-18] MEDS: Ergocalciferol 50,000 Intl Units Cap PO SCH (17:30)
[2018-04-18] MEDS: Insulin Reg-HIGH-Coverage SC SCH ×2 (17:30→21:41)
[2018-04-18] MEDS: Sodium Chloride 0.45% 1,000 ML IV SCH (17:31)
[2018-04-18 19:25] VITALS: BMI 23.2
[2018-04-18] MEDS ORDERED: Pneumococcal 23-Valent Vaccine IM ONE (19:25)
[2018-04-18] MEDS ORDERED: Influenza Vaccine 60 mcg/0.5 mL SYR (4YR UP) IM ONE (19:25)
[2018-04-18] MEDS: Arformoterol 15 mcg/2 ml Inh Sol IH SCH (21:00)
[2018-04-18] MEDS: Budesonide 0.5 mg/2 ml Inhal Susp UD IH SCH (21:00)
[2018-04-18] MEDS: Albuterol-Ipratrop 3 mg / 0.5 (3 ml) UD IH SCH (21:00)
[2018-04-18] MEDS: guaiFENesin 200 mg/10 ml Syrup UD PO PRN (21:30)
--- NOTE | 2018-04-18 21:59 | PN ---
DATE: 04/18/2018 SUBJECTIVE: The patient is sitting in the toilet. She is awake. She is alert. She is comfortable. She denies any pain. She denies any shortness of breath. Her breathing is somewhat better. She still has a cough. PHYSICAL EXAMINATION: GENERAL: Elderly lady, sitting in the bathroom. VITAL SIGNS: Blood pressure 145/72, heart rate 71, respiratory rate 18, temperature 98. HEENT: Normocephalic, atraumatic, positive pallor. NECK: Supple, no JVD. LUNGS: Bilateral equal air entry, bilateral rhonchi. CARDIAC: S1 and S2, regular rate and rhythm, no murmur, no rub. ABDOMEN: Obese, distended, soft, nontender, bowel sounds present. EXTREMITIES: No lower extremity edema. LABORATORY DATA: WBC 6, hemoglobin 8.8, hematocrit 27.7, platelets 317. Sodium 139, potassium 4.5, chloride 107, CO2 27, BUN 40, creatinine 1.3, glucose 239, calcium 8.8, phosphorus 3.6, magnesium 2.5. Iron saturation 39 and 44, ferritin 21.8. CURRENT MEDICATIONS: List reviewed. ASSESSMENT: 1. Acute kidney injury, multifactorial in the setting of chronic obstructive pulmonary disease exacerbation, steroid use, angiotensin receptor juvenal, dehydration. 2. ?Gastrointestinal bleed, may be a contributing factor also in the acute kidney injury. 3. Hypertension. 4. Jnw-[id number] diabetes mellitus. 5. Underlying chronic kidney disease stage III. PLAN: 1. Discontinue IV fluids. 2. Okay to restart Cozaar from tomorrow morning. 3. Check stool occults. 4. Venofer 200 mg IV piggyback. Halley Coreas MD
[2018-04-19] MEDS: Albuterol-Ipratrop 3 mg / 0.5 (3 ml) UD IH SCH ×7 (00:35→23:24)
[2018-04-19] MEDS: guaiFENesin 200 mg/10 ml Syrup UD PO PRN (03:58)
[2018-04-19] MEDS: Pantoprazole 40 mg EC Tab PO SCH (04:59)
[2018-04-19] MEDS: Sodium Chloride 0.45% 1,000 ML IV SCH (04:59)
[2018-04-19] MEDS: Budesonide 0.5 mg/2 ml Inhal Susp UD IH SCH ×2 (07:16→21:03)
[2018-04-19] MEDS: Arformoterol 15 mcg/2 ml Inh Sol IH SCH ×2 (07:16→21:03)
[2018-04-19] MEDS: ROSUVASTATIN 20 MG PO SCH (11:37)
[2018-04-19] MEDS: Insulin Reg-HIGH-Coverage SC SCH ×3 (11:38→21:45)
--- NOTE | 2018-04-19 11:47 | CP.PCM.HP ---
<Salomón Ceja - Last Filed: 04/19/18 11:34> History of Present Illness - History of Present Illness History of Present Illness: PGY1 Medicine History and Physical Exam Note for Dr. Waldemar Brar Patient is a 88 year old female with PMH of diverticulosis, diverticulitis, DM, emphysema, and HTN who presented to the emergency department 04/14 complaining of SOB x 3 days. Patient was treated with nebulizer and course of steroid by her PMD for the past week before presentation. Patient was subsequently admitted for COPD exacerbation. Patient was initially treated with azithromycin, duoneb and solu-medrol IVP. Her respiratory status had improved, however she developed and VANCE while in the hospital. Patient was evaluated by nephrology. Azithromycin was stopped, steroids were initially held and losartan was held. Patient received IV hydration. Renal ultrasound revealed no parenchymal disease with simple cysts in the R lower pole and L upper pole, bladder u/s revealed moderate post-void residual. Patient's VANCE had resolved during hospital course. Patient was evaluated by PT and was accepted to TCU for rehabilitation. Nephrology recommended resumption of losartan the day after discharge to TCU. Patient has been ambulating, and tolerating her diet well, no symptoms of dysuria. Patient was hemodynamically stable and has been medically optimized for discharge 04/18, and is currently in TCU for further rehabilitation. Today patient has no new complaints. Patient admits to non-bloody, non-diarrhea bowel movement. Patient otherwise denied any fever, chills, chest pain, nausea, vomiting, diarrhea, urinary symptoms, back pain, neck pain, headache, dizziness, or any other complaints. Pmhx: Diverticulosis, diverticulitis, DM, emphysema, and HTN Pshx: Denies Home Meds: Coreg 3.125 BID, Crestor 20 QD, Norvasc 2.5 QD, Zetia 10 QD, losartan 100 QD All: Codeine - rash Social: Denies any tobacco use, admits to beer once every week or 2, no illicit drug use Fam: Non-contributory PMD: Olguin Present on Admission - Present on Admission Any Indicators Present on Admission: Yes History of DVT/PE: No History of Uncontrolled Diabetes: Yes Urinary Catheter: No Decubitus Ulcer Present: No Review of Systems - Review of Systems All systems: reviewed and no additional remarkable complaints except - Constitutional Constitutional: As Per HPI - EENT Eyes: As Per HPI Ears: As Per HPI Nose/Mouth/Throat: As Per HPI - Breasts Breasts: As Per HPI - Cardiovascular Cardiovascular: As Per HPI - Respiratory Respiratory: As Per HPI - Gastrointestinal Gastrointestinal: As Per HPI - Genitourinary Genitourinary: As Per HPI - Musculoskeletal Musculoskeletal: As Per HPI - Integumentary Integumentary: As Per HPI Past Patient History - Infectious Disease Hx of Infectious Diseases: None - Tetanus Immunizations Tetanus Immunization: Up to Date - Past Social History Smoking Status: Never Smoked - CARDIAC Hx Cardiac Disorders: Yes (cardiac cath) Hx Hypertension: Yes - PULMONARY Hx Chronic Obstructive Pulmonary Disease (COPD): Yes - NEUROLOGICAL Hx Paralysis: No - RENAL Other/Comment: L renal deficiency - ENDOCRINE/METABOLIC Hx Diabetes Mellitus Type 2: Yes - HEMATOLOGICAL/ONCOLOGICAL Hx Blood Transfusions: No - MUSCULOSKELETAL/RHEUMATOLOGICAL Hx Falls: No - GASTROINTESTINAL Hx Gastrointestinal Disorders: No (bm x 4 days does not feel constipated) - GENITOURINARY/GYNECOLOGICAL Hx Reproductive Disorders: No - PSYCHIATRIC Hx Emotional Abuse: No Hx Physical Abuse: No Hx Substance Use: No - SURGICAL HISTORY Hx Cardiac Catheterization: Yes - ANESTHESIA Hx Anesthesia Reactions: No Hx Malignant Hyperthermia: No Meds Allergies/Adverse Reactions: Allergies Allergy/AdvReac Type Severity Reaction Status Date / Time atorvastatin calcium Allergy DIARRHEA Verified 06/08/17 15:28 [From Lipitor] codeine Allergy RASH Verified 06/08/17 15:28 Physical Exam - Additional Findings Additional findings: - Constitutional Appears: Well, Non-toxic, No Acute Distress - Head Exam Head Exam: NORMAL INSPECTION, NORMOCEPHALIC - Eye Exam Eye Exam: EOMI, Normal appearance - ENT Exam ENT Exam: Mucous Membranes Moist, Normal Exam - Neck Exam Neck Exam: Normal Inspection - Respiratory Exam Respiratory Exam: NORMAL BREATHING PATTERN - Cardiovascular Exam Cardiovascular Exam: REGULAR RHYTHM, +S1, +S2 - GI/Abdominal Exam GI & Abdominal Exam: Soft. absent: Tenderness - Extremities Exam Extremities Exam: Normal Inspection. absent: Calf Tenderness - Back Exam Back Exam: NORMAL INSPECTION - Neurological Exam Neurological Exam: Alert, Awake, Oriented x3 - Psychiatric Exam Psychiatric exam: Flat Affect, Normal Mood - Skin Skin Exam: Dry, Intact, Warm Results - Vital Signs Recent Vital Signs: Last Vital Signs Temp 97.6 F 04/18/18 19:15 Pulse 82 04/19/18 10:15 Resp 20 04/18/18 19:15 BP 147/70 04/19/18 10:15 Pulse Ox - Labs Labs: Laboratory Results - last 24 hr 04/18/18 04/18/18 04/19/18 16:53 21:38 04:53 POC Glucose (mg/dL) 125 H 211 H 189 H 04/19/18 11:27 POC Glucose (mg/dL) 168 H Assessment & Plan - Assessment and Plan (Free Text) Assessment: Assessment: Pt is a 88 year old female with pmhx of diverticulosis, diverticulitis, DM, emphysema, and HTN who presents to the emergency department complaining of SOB x 3 days. Patient was medically optimized in telemetry. Patient discharged 04/18 and currently in TCU for further rehabilitation. Plan: COPD exacerbation: - Stable - CXR: Mild bibasilar infiltrates - Duonebs Q4 KALEE, Q2 PRN - budesonide - predinsone 30mg. Taper afterwards - Flu (-) VANCE, resolved - Fluids: 1/2 NS @80 mls/hr - Discontinued: Azithromycin. less likely acute interstitial nephritis - Held: losartan - Urine electrolytes and urine eosinophils obtained - Bladder u/s: moderate post-void residual. renal u/s: medical renal parenchymal disease. no hydronephrosis/nephrolithiasis. simple exophytic cysts - Nephrology consulted, recommendations appreciated (Dr. Coreas) Hyperkalemia - EKG unchanged - Kayexalate given. K+ resolved to within normal limits Anemia: - H/H stable - Stable from previous admission, will continue to monitor Leukocytosis likely secondary to steroid use - Resolved - Patient is afebrile - likely reactive from steroids History of Type 2 Diabetes Mellitus: - ISS - Medium - [id number]=4.9 - Hypoglycemic protocol - Will continue to monitor History of HTN: - Cont norvasc, coreg. Stop losartan History of HLD: - Cont home Rosuvastatin, Zetia PPX: - DVT: Lovenox 30sc QD - GI: Protonix 40mg QD Patient seen and case discussed in detail with Dr. Waldemar Ceja PGY1 <Anu Brar R - Last Filed: 04/20/18 14:16> Results - Vital Signs Recent Vital Signs: Last Vital Signs Temp 98.4 F 04/20/18 06:00 Pulse 83 04/20/18 10:34 Resp 18 04/20/18 06:00 BP 160/77 H 04/20/18 10:34 Pulse Ox 93 L 04/20/18 06:00 - Labs Labs: Laboratory Results - last 24 hr 04/19/18 04/19/18 04/20/18 16:26 21:29 05:14 POC Glucose (mg/dL) 177 H 250 H 149 H 04/20/18 11:21 POC Glucose (mg/dL) 92 Attending/Attestation - Attestation I have personally seen and examined this patient.: Yes I have fully participated in the care of the patient.: Yes I have reviewed all pertinent clinical information: Yes Notes (Text): Patient seen and examined by me with resident at 9:20AM on 04/19/18. Case including HPI, physical exam, and assessment and plan discussed with resident. Agree with above with following additions/corrections. Patient is an 88-year-old female past medical history significant for diverticulosis, diverticulitis, type 2 diabetes, emphysema, and hypertension that initially on 04/14/18 presented to the emergency room with shortness of breath. Patient was admitted with COPD exacerbation, anemia, leukocytosis, type 2 diabetes, hypertension, and hyperlipidemia. Patient was treated with nebulizer treatments and Solu-Medrol with improvement. Leukocytosis resolved. Patient developed VANCE which improved. Patient was seen by concrete block maker. Patient was seen by physical therapy who recommended TCU. Patient was discharged to TCU. Today, patient states she is feeling ok. Complains of left sided chest and back pain from coughing. Patient states she had a small bowel movement last night. She states she is doing ok with physical therapy. No shortness of breath. No headaches or dizziness. No fevers or chills. No nausea, vomiting, or abdominal pain. No dysuria. 12 Point review of systems reviewed by me. Please see above HPI, all other systems are negative. Family History: Reviewed and noncontributory Past surgical history: Reviewed and noncontributory Physical exam: General: Awake and lying in bed in no acute distress HEENT: Normocephalic, atraumatic. Extraocular muscles intact, pupils equal and reactive, no scleral icterus. Oropharynx is pink and moist. Neck is supple. Cardiovascular: Regular rhythm. Normal S1 and S2. No rubs or gallops appreciated Pulmonary: Normal respiratory effort. No rhonchi, rales, or wheezing appreciated. Gastrointestinal: Soft, nondistended. Nontender. Positive bowel sounds all 4 quadrants. Musculoskeletal: Moves all extremities. No calf tenderness. No CVA tenderness. No edema appreciated. Left anterior chest wall tenderness. Central nervous system: AAO x3, CN 2-12 grossly intact. Dermatologic: Skin warm and dry. Assessment and plan: Patient is an 88-year-old female past medical history significant for diverticulosis, diverticulitis, type 2 diabetes, emphysema, and hypertension that initially on 04/14/18 presented to the emergency room with shortness of breath. Patient was transferred to TCU for gait instability and generalized weakness. 1. Gait instability and generalized weakness. Continue PT/OT as tolerated. Continue supportive care 2. COPD exacerbation. Improved. Continue nebulizer treatments. Continue Brovana and Pulmicort. Continue Robitussin prn cough. Continue prednisone taper. 3. VANCE. Improved. Continue to encourage PO intake. Will need repeat labs prior to discharge. Nephrology following. 4. Anemia. Continue Ferrex. No signs of acute bleeding. Continue to monitor CBC. 5. DM2. Continue insulin sliding scale. Continue to monitor accuchecks 6. Hypertension. Continue Cozaar and Coreg 7. Hypercholesterolemia. Continue Zetia 8. Vitamin D deficency. Continue Vitamin D. 9. GI/DVT prophylaxis. Protonix/Heparin Case discussed in detail with patient and patient's daughter at bedside regarding current diagnosis and treatment plan. All questions answered.
[2018-04-20] MEDS: Albuterol-Ipratrop 3 mg / 0.5 (3 ml) UD IH SCH ×3 (03:32→11:49)
[2018-04-20] MEDS: Pantoprazole 40 mg EC Tab PO SCH (05:07)
[2018-04-20] MEDS: Insulin Reg-HIGH-Coverage SC SCH ×4 (06:32→21:34)
[2018-04-20] MEDS: Budesonide 0.5 mg/2 ml Inhal Susp UD IH SCH ×2 (07:35→19:51)
[2018-04-20] MEDS: Arformoterol 15 mcg/2 ml Inh Sol IH SCH ×2 (07:35→19:51)
[2018-04-20] MEDS: guaiFENesin 200 mg/10 ml Syrup UD PO PRN (08:21)
[2018-04-20] MEDS: ROSUVASTATIN 20 MG PO SCH (10:44)
--- NOTE | 2018-04-20 13:13 | PN ---
DATE: 04/20/2018 SUBJECTIVE: The patient is currently seen in the TCU. She is sitting up in a chair. She appears to be in no acute distress. Her BUN and creatinine are slowly falling down to baseline levels. She was admitted for a COPD exacerbation, treated with combination of diuretics and steroids. The patient was prerenal on acute care. MEDICATIONS: Medication list reviewed. The patient is currently on Brovana, Colace, Coreg, losartan, vitamin D, DuoNeb, subcu heparin, Crestor, insulin, prednisone, Protonix, Pulmicort Respules, Robitussin, p.r.n. Tylenol, Zetia, and Zofran. OBJECTIVE: VITAL SIGNS: Blood pressure 160/77, temperature 98.4, respiratory rate 18 with a pulse of 83. HEENT: Shows her to be normocephalic, atraumatic. Conjunctivae are pale. Sclerae nonicteric. NECK: Supple. No neck vein distention. CHEST: Clear to auscultation and percussion. No rales, rhonchi or wheezing. CARDIOVASCULAR: Shows a regular rate and rhythm without audible murmurs, rubs or gallops. ABDOMEN: Soft. Bowel sounds normal. No rebound, guarding or masses. EXTREMITIES: No lower extremity cyanosis, clubbing or edema. LABORATORY DATA IMAGING: Lab work from 2 days ago shows a hemoglobin of 8.8 with a white blood cell count of 6.8, platelet count is 317,000. Her electrolytes were normal. BUN was 40 with a creatinine of 1.3 down from a high of a BUN of 63 and a creatinine of 3.5. Her baseline BUN and creatinine are less than 20 and less than 1. Her iron saturations were 13%. ASSESSMENT: 1. Acute renal failure superimposed on chronic kidney disease stage II. The patient's BUN and creatinine are trending back to normal. The patient remains on oral prednisone therapy. She is currently off diuretics. The patient did receive IV fluid hydration during acute care. Her renal ultrasound was for the most part unremarkable showing bilateral renal cysts with echogenic kidneys. 2. Chronic obstructive pulmonary disease with exacerbation. Continue inhalation therapy, continue steroid dose taper. 3. History of cmx-[id number]-wxfksggyz diabetes mellitus, on oral medication with steroids. The patient is receiving sliding scale insulin. 4. History of hypertension. Systolic blood pressure mildly elevated. The patient had been started back on losartan. Expect to see improvement in her BUN and creatinine. The patient will continue Coreg along with the angiotensin receptor juvenal. P.r.n. daily calcium channel juvenal if necessary. 5. History of iron-deficiency anemia. The patient's iron levels remain low. We will start the patient on oral iron supplements. Hemoglobin remains stable in the 8.8 range with an iron saturation of 13%. PLAN: 1. The patient may continue on losartan. 2. Check lab work over the weekend. 3. Hold diuretic therapy. 4. Encourage oral p.o. hydration. 5. Supplement oral iron therapy as noted above. Hugh Cuevas MD
[2018-04-20] MEDS: Iron Complex Polysacch 150mg Cap PO SCH (14:00)
[2018-04-20] MEDS ORDERED: Albuterol-Ipratrop 3 mg / 0.5 (3 ml) UD IH PRN (14:02)
[2018-04-21] MEDS: guaiFENesin 200 mg/10 ml Syrup UD PO PRN (01:24)
[2018-04-21] MEDS: Pantoprazole 40 mg EC Tab PO SCH (05:42)
[2018-04-21] MEDS: Insulin Reg-HIGH-Coverage SC SCH ×4 (06:42→21:47)
--- NOTE | 2018-04-21 06:54 | CP.PCM.PN ---
Objective - Vital Signs/Intake and Output Vital Signs (last 24 hours): Temp Pulse Resp BP Pulse Ox 98.4 F 81 18 165/74 H 93 L 04/20/18 06:00 04/20/18 17:39 04/20/18 06:00 04/20/18 17:39 04/20/18 16:31 Intake and Output: 04/20/18 04/21/18 18:59 06:59 Intake Total 360 Balance 360 - Medications Medications: Current Medications Acetaminophen (Tylenol 325mg Tab) 650 mg PO Q6H PRN; Protocol PRN Reason: Headache Last Admin: 04/20/18 10:44 Dose: 650 mg Acetaminophen (Tylenol 325mg Tab) 650 mg PO Q6H PRN; Protocol PRN Reason: Fever >100.4 F Albuterol/Ipratropium (Duoneb 3 Mg/0.5 Mg (3 Ml) Ud) 3 ml IH [id number] PRN; Protocol PRN Reason: Shortness of Breath Arformoterol Tartrate (Brovana) 15 mcg IH [id number] KALEE Last Admin: 04/20/18 19:51 Dose: 15 mcg Budesonide (Pulmicort Respules) 1 mg IH [id number] KALEE; Protocol Last Admin: 04/20/18 19:51 Dose: 1 mg Carvedilol (Coreg) 3.125 mg PO BID KALEE; Protocol Last Admin: 04/20/18 17:39 Dose: 3.125 mg Docusate Sodium (Colace) 100 mg PO BID AKLEE; Protocol Last Admin: 04/20/18 17:39 Dose: 100 mg Ezetimibe (Zetia) 10 mg PO DAILY KALEE; Protocol Last Admin: 04/20/18 10:33 Dose: 10 mg Ergocalciferol (Drisdol 50,000 Intl Units Cap) 1 cap PO Q7D KALEE Last Admin: 04/18/18 17:30 Dose: 1 cap Guaifenesin (Robitussin) 200 mg PO Q4H PRN; Protocol PRN Reason: Cough and congestion Last Admin: 04/21/18 01:24 Dose: 200 mg Heparin Sodium (Porcine) (Heparin) 5,000 units SC Q8 KALEE; Protocol Last Admin: 04/21/18 05:42 Dose: 5,000 units Home Med (Home Med) 1 unit PO DAILY KALEE Last Admin: 04/20/18 10:44 Dose: 1 unit Insulin Human Regular (Humulin R High) 0 units SC ACHS [facility]; Protocol Last Admin: 04/21/18 06:42 Dose: Not Given Losartan Potassium (Cozaar) 25 mg PO DAILY [facility]; Protocol Last Admin: 04/20/18 10:34 Dose: 25 mg Ondansetron HCl (Zofran Odt) 4 mg PO Q8H PRN PRN Reason: Nausea/Vomiting Pantoprazole Sodium (Protonix Ec Tab) 40 mg PO 0600 [facility] Last Admin: 04/21/18 05:42 Dose: 40 mg Polysaccharide Iron Complex (Ferrex-150) 150 mg PO DAILY [facility] Last Admin: 04/20/18 14:00 Dose: 150 mg Prednisone (Prednisone Tab) 10 mg PO DAILY [facility] Stop: 04/22/18 00:01
[2018-04-21] MEDS: Budesonide 0.5 mg/2 ml Inhal Susp UD IH SCH ×2 (07:31→21:20)
[2018-04-21] MEDS: Arformoterol 15 mcg/2 ml Inh Sol IH SCH ×2 (07:31→21:20)
[2018-04-21] MEDS ORDERED: guaiFENesin 200 mg/10 ml Syrup UD PO STA (09:51)
[2018-04-21] MEDS: Iron Complex Polysacch 150mg Cap PO SCH (10:23)
--- NOTE | 2018-04-21 10:23 | CP.PCM.PN ---
<Miranda Mayes - Last Filed: 04/21/18 10:09> Subjective - Date & Time of Evaluation Date of Evaluation: 04/21/18 Time of Evaluation: 07:00 - Subjective Subjective: Hospitalist progress note for Claudia Chaudhary PGY3 Patient seen and examined at bedside. There were no acute overnight events as per nursing staff. Patient reports having cough that is worse at night. Patient is also complaining of constipation. She denies chest pain, shortness of breath, nausea/vomiting/diarrhea, fever or chills. Objective - Vital Signs/Intake and Output Vital Signs (last 24 hours): Temp Pulse Resp BP Pulse Ox 98.4 F 81 18 165/74 H 93 L 04/20/18 06:00 04/20/18 17:39 04/20/18 06:00 04/20/18 17:39 04/20/18 16:31 Intake and Output: 04/21/18 04/21/18 06:59 18:59 Intake Total 360 Balance 360 - Medications Medications: Current Medications Acetaminophen (Tylenol 325mg Tab) 650 mg PO Q6H PRN; Protocol PRN Reason: Headache Last Admin: 04/20/18 10:44 Dose: 650 mg Acetaminophen (Tylenol 325mg Tab) 650 mg PO Q6H PRN; Protocol PRN Reason: Fever >100.4 F Albuterol/Ipratropium (Duoneb 3 Mg/0.5 Mg (3 Ml) Ud) 3 ml IH [id number] PRN; Protocol PRN Reason: Shortness of Breath Arformoterol Tartrate (Brovana) 15 mcg IH [id number] SHRUTHI Last Admin: 04/21/18 07:31 Dose: 15 mcg Budesonide (Pulmicort Respules) 1 mg IH [id number] SHRUTHI; Protocol Last Admin: 04/21/18 07:31 Dose: 1 mg Carvedilol (Coreg) 3.125 mg PO BID SHRUTHI; Protocol Last Admin: 04/20/18 17:39 Dose: 3.125 mg Docusate Sodium (Colace) 100 mg PO TID SHRUTHI; Protocol Ezetimibe (Zetia) 10 mg PO DAILY SHRUTHI; Protocol Last Admin: 04/20/18 10:33 Dose: 10 mg Ergocalciferol (Drisdol 50,000 Intl Units Cap) 1 cap PO Q7D [facility] Last Admin: 04/18/18 17:30 Dose: 1 cap Guaifenesin (Robitussin) 200 mg PO Q4H PRN PRN Reason: Cough and congestion Guaifenesin (Robitussin) 200 mg PO Q6 [facility]; Protocol Stop: 04/22/18 06:01 Heparin Sodium (Porcine) (Heparin) 5,000 units SC Q8 [facility]; Protocol Last Admin: 04/21/18 05:42 Dose: 5,000 units Home Med (Home Med) 1 unit PO DAILY [facility] Last Admin: 04/20/18 10:44 Dose: 1 unit Insulin Human Regular (Humulin R High) 0 units SC ACHS [facility]; Protocol Last Admin: 04/21/18 06:42 Dose: Not Given Losartan Potassium (Cozaar) 25 mg PO DAILY [facility]; Protocol Last Admin: 04/20/18 10:34 Dose: 25 mg Ondansetron HCl (Zofran Odt) 4 mg PO Q8H PRN PRN Reason: Nausea/Vomiting Pantoprazole Sodium (Protonix Ec Tab) 40 mg PO 0600 [facility] Last Admin: 04/21/18 05:42 Dose: 40 mg Polyethylene Glycol (Miralax) 17 gm PO DAILY [facility] Polysaccharide Iron Complex (Ferrex-150) 150 mg PO DAILY [facility] Last Admin: 04/20/18 14:00 Dose: 150 mg Prednisone (Prednisone Tab) 10 mg PO DAILY [facility] Stop: 04/22/18 00:01 - Constitutional Appears: No Acute Distress - Head Exam Head Exam: ATRAUMATIC, NORMAL INSPECTION, NORMOCEPHALIC - Eye Exam Eye Exam: Normal appearance, PERRL Pupil Exam: NORMAL ACCOMODATION - ENT Exam ENT Exam: Mucous Membranes Moist - Respiratory Exam Respiratory Exam: Decreased Breath Sounds, Wheezes, NORMAL BREATHING PATTERN. absent: Rales, Rhonchi, Respiratory Distress - Cardiovascular Exam Cardiovascular Exam: REGULAR RHYTHM, +S1, +S2. absent: Gallop, Rubs, Murmur - GI/Abdominal Exam GI & Abdominal Exam: Soft, Normal Bowel Sounds. absent: Rigid, Tenderness, Mass, Rebound - Extremities Exam Extremities Exam: Normal Inspection. absent: Calf Tenderness, Pedal Edema - Neurological Exam Neurological Exam: Alert, Awake, CN II-XII Intact - Psychiatric Exam Psychiatric exam: Normal Affect, Normal Mood - Skin Skin Exam: Dry, Warm Assessment and Plan - Assessment and Plan (Free Text) Assessment: This is a 88yo female with past medical history of DM-II, COPD, HTN, hyperlipidemia and diverticulitis who was admitted for 1. COPD exacerbation - Continue Duonebs prn and shruthi - Continue Pulmicort - PO Prednisone tapered - Robitussin for cough 2. VANCE on CKDIIIA- resolved - Cr trending down - Nephrology on consult- recs appreciated - Losartan restarted - Diuretics on hold 3. Anemia of chronic disease - Hgb is stable- will monitor - Pt placed on Ferrex by Nephrology 4. HTN - Continue Coreg, Losartan and Norvasc 5. DM-II - HgbA1c: 6.9 - Continue ISS - Continue to monitor fingersticks ACHS 6. HLD - Continue Crestor and Zetia 7. Constipation - Colace increased to TID - Miralax added 8. Vitamin D deficiency - continue Drisdol weekly Dispo: Patient will continue rehab in TCU. Anticipated DC date is 04/26. Case seen, discussed and reviewed with Dr. Maykel Mayes PGY3 <Anu Brar R - Last Filed: 04/21/18 15:22> Objective - Vital Signs/Intake and Output Vital Signs (last 24 hours): Temp Pulse Resp BP Pulse Ox 98 F 78 20 136/65 98 04/21/18 10:00 04/21/18 10:23 04/21/18 10:00 04/21/18 10:23 04/21/18 10:00 Intake and Output: 04/21/18 04/21/18 06:59 18:59 Intake Total 360 Balance 360 - Medications Medications: Current Medications Acetaminophen (Tylenol 325mg Tab) 650 mg PO Q6H PRN; Protocol PRN Reason: Headache Last Admin: 04/20/18 10:44 Dose: 650 mg Acetaminophen (Tylenol 325mg Tab) 650 mg PO Q6H PRN; Protocol PRN Reason: Fever >100.4 F Albuterol/Ipratropium (Duoneb 3 Mg/0.5 Mg (3 Ml) Ud) 3 ml IH [id number] PRN; Protocol PRN Reason: Shortness of Breath Arformoterol Tartrate (Brovana) 15 mcg IH [id number] SHRUTHI Last Admin: 04/21/18 07:31 Dose: 15 mcg Budesonide (Pulmicort Respules) 1 mg IH [id number] SHRUTHI; Protocol Last Admin: 04/21/18 07:31 Dose: 1 mg Carvedilol (Coreg) 3.125 mg PO BID [facility]; Protocol Last Admin: 04/21/18 10:23 Dose: 3.125 mg Docusate Sodium (Colace) 100 mg PO TID SHRUTHI; Protocol Last Admin: 04/21/18 14:45 Dose: 100 mg Ezetimibe (Zetia) 10 mg PO DAILY SHRUTHI; Protocol Last Admin: 04/21/18 10:24 Dose: 10 mg Ergocalciferol (Drisdol 50,000 Intl Units Cap) 1 cap PO Q7D [facility] Last Admin: 04/18/18 17:30 Dose: 1 cap Guaifenesin (Robitussin) 200 mg PO Q4H PRN PRN Reason: Cough and congestion Guaifenesin (Robitussin) 200 mg PO Q6 SHRUTHI; Protocol Stop: 04/22/18 06:01 Last Admin: 04/21/18 12:56 Dose: Not Given Heparin Sodium (Porcine) (Heparin) 5,000 units SC Q8 SHRUTHI; Protocol Last Admin: 04/21/18 14:48 Dose: 5,000 units Home Med (Home Med) 1 unit PO DAILY [facility] Last Admin: 04/21/18 10:24 Dose: 1 unit Insulin Human Regular (Humulin R High) 0 units SC ACHS [facility]; Protocol Last Admin: 04/21/18 12:55 Dose: Not Given Losartan Potassium (Cozaar) 25 mg PO DAILY [facility]; Protocol Last Admin: 04/21/18 10:23 Dose: 25 mg Ondansetron HCl (Zofran Odt) 4 mg PO Q8H PRN PRN Reason: Nausea/Vomiting Polyethylene Glycol (Miralax) 17 gm PO DAILY [facility] Last Admin: 04/21/18 10:31 Dose: 17 gm Polysaccharide Iron Complex (Ferrex-150) 150 mg PO DAILY [facility] Last Admin: 04/21/18 10:23 Dose: 150 mg Prednisone (Prednisone Tab) 10 mg PO DAILY [facility] Stop: 04/22/18 00:01 Last Admin: 04/21/18 10:24 Dose: 10 mg Attending/Attestation - Attestation I have personally seen and examined this patient.: Yes I have fully participated in the care of the patient.: Yes I have reviewed all pertinent clinical information, including history, physical exam and plan: Yes Notes (Text): Patient seen and examined by me with resident at 9:50AM on 04/21/18. Case including HPI, physical exam, and assessment and plan discussed with resident. Agree with above with following additions/corrections. Patient is an 88-year-old female past medical history significant for diverticulosis, diverticulitis, type 2 diabetes, emphysema, and hypertension that initially on 04/14/18 presented to the emergency room with shortness of breath. Patient admitted to TCU on 04/18/18. Patient states she feels ok. States she feels tired because she was unable to sleep last night secondary to coughing. Patient states she also has not had a bowel movement but denies any abdominal pain, nausea, or vomiting. No chest pain or shortness of breath. No headaches or dizziness. No fevers or chills. No nausea, vomiting, or abdominal pain. No dysuria. Patient's daughter at bedside. Physical exam: General: Awake and lying in bed in no acute distress HEENT: Normocephalic, atraumatic. Extraocular muscles intact, pupils equal and reactive, no scleral icterus. Oropharynx is pink and moist. Neck is supple. Cardiovascular: Regular rhythm. Normal S1 and S2. No rubs or gallops appreciated Pulmonary: Normal respiratory effort. No rhonchi, rales, or wheezing appreciated. Gastrointestinal: Soft, nondistended. Nontender. Positive bowel sounds all 4 quadrants. Musculoskeletal: Moves all extremities. No calf tenderness. No CVA tenderness. No edema appreciated. Central nervous system: AAO x3, CN 2-12 grossly intact. Dermatologic: Skin warm and dry. Assessment and plan: Patient is an 88-year-old female past medical history significant for diverticulosis, diverticulitis, type 2 diabetes, emphysema, and hypertension that initially on 04/14/18 presented to the emergency room with shortness of breath. Patient was transferred to TCU for gait instability and generalized weakness. 1. Gait instability and generalized weakness. Continue PT/OT as tolerated. Continue supportive care 2. Constipation. Started on colace and miralax. 3. COPD exacerbation. Resolving. Continue nebulizer treatments. Continue Brovana and Pulmicort. Continue Robitussin. Continue prednisone taper. 4. VANCE. Improved. Continue to encourage PO intake. Will need repeat labs prior to discharge. Nephrology following. 5. Anemia. Continue Ferrex. Continue to monitor CBC. 6. DM2. Continue insulin sliding scale. Continue to monitor accuchecks 7. Hypertension. Continue Cozaar and Coreg 8. Hypercholesterolemia. Continue Zetia 9. Vitamin D deficency. Continue Vitamin D. 10. GI prophylaxis. Protonix Case discussed in detail with patient and patient's daughter at bedside regarding current diagnosis and treatment plan. All questions answered.
[2018-04-21] MEDS: ROSUVASTATIN 20 MG PO SCH (10:24)
[2018-04-21] MEDS: POLYETHYLENE GLYCOL 3350 17 GM/Dose PACKET PO SCH (10:31)
[2018-04-21] MEDS: guaiFENesin 200 mg/10 ml Syrup UD PO SCH ×3 (12:56→22:59)
[2018-04-22] MEDS: guaiFENesin 200 mg/10 ml Syrup UD PO SCH (05:40)
[2018-04-22 06:48] LABS: HEMOGLOBIN 8.3 g/dL (12.0-16.0); MEAN CELL VOLUME 88.3 fl (80.0-105.0); MEAN CORPUSCULAR HEMOGLOBIN 27.9 pg (25.0-35.0); MEAN CORPUSCULAR HGB CONC 31.6 g/dl (31.0-37.0); MEAN PLATELET VOLUME 9.4 fl (7.0-11.0); RBC 2.98 10^6/uL (3.5-6.1); RED CELL DISTRIBUTION WIDTH 14.4 % (11.5-14.5); WHITE BLOOD COUNT 11.5 10^3/uL (4.5-11.0)
[2018-04-22 07:05] LABS: ALBUMIN 2.8 g/dL (3.0-4.8); ALT/SGPT 42 U/L (7-56); AST/SGOT 29 U/L (14-36); BLOOD UREA NITROGEN 26 mg/dL (7-21); CALCIUM 8.7 mg/dL (8.4-10.5); GFR NON-AFRICAN AMERICAN 59
[2018-04-22] MEDS: Insulin Reg-HIGH-Coverage SC SCH ×3 (07:19→17:58)
[2018-04-22] MEDS: Arformoterol 15 mcg/2 ml Inh Sol IH SCH ×2 (07:25→21:34)
[2018-04-22] MEDS: Budesonide 0.5 mg/2 ml Inhal Susp UD IH SCH ×2 (07:25→21:34)
--- NOTE | 2018-04-22 08:07 | CP.PCM.CON ---
History of Present Illness - History of Present Illness History of Present Illness: GI Fellow PGY4, Consult note. Shakila Mercer, 88F, presented 4 days ago with SOB and found to have COPD exacerbation. She was found to be anemic and we were consulted for FOBT+. Work-up shows normocytic anemia Hb 8.3, iron panel consistent with deficiency, normal UA. CSPY - 07/[address] Martinez found subcentimeter TA and diverticulosis. PMHx - T2DM, HTN, Diverticulitis, COPD, CKD Past Patient History - Infectious Disease Hx of Infectious Diseases: None - Tetanus Immunizations Tetanus Immunization: Up to Date - Past Social History Smoking Status: Never Smoked - CARDIAC Hx Cardiac Disorders: Yes Hx Congestive Heart Failure: Yes Hx Hypertension: Yes - PULMONARY Hx Chronic Obstructive Pulmonary Disease (COPD): Yes - NEUROLOGICAL Hx Paralysis: No - 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) - ENDOCRINE/METABOLIC Hx Diabetes Mellitus Type 2: Yes - HEMATOLOGICAL/ONCOLOGICAL Hx Blood Transfusions: No - MUSCULOSKELETAL/RHEUMATOLOGICAL Hx Falls: No - GASTROINTESTINAL Hx Gastrointestinal Disorders: No (bm x 4 days does not feel constipated) - GENITOURINARY/GYNECOLOGICAL Hx Reproductive Disorders: No - PSYCHIATRIC Hx Emotional Abuse: No Hx Physical Abuse: No Hx Substance Use: No - SURGICAL HISTORY Hx Cardiac Catheterization: Yes - ANESTHESIA Hx Anesthesia Reactions: No Hx Malignant Hyperthermia: No Meds Allergies/Adverse Reactions: Allergies Allergy/AdvReac Type Severity Reaction Status Date / Time atorvastatin calcium Allergy DIARRHEA Verified 06/08/17 15:28 [From Lipitor] codeine Allergy RASH Verified 06/08/17 15:28 - Medications Medications: Current Medications Acetaminophen (Tylenol 325mg Tab) 650 mg PO Q6H PRN; Protocol PRN Reason: Headache Last Admin: 04/20/18 10:44 Dose: 650 mg Acetaminophen (Tylenol 325mg Tab) 650 mg PO Q6H PRN; Protocol PRN Reason: Fever >100.4 F Albuterol/Ipratropium (Duoneb 3 Mg/0.5 Mg (3 Ml) Ud) 3 ml IH [id number] PRN; Pro tocol PRN Reason: Shortness of Breath Arformoterol Tartrate (Brovana) 15 mcg IH [id number] [facility] Last Admin: 04/22/18 07:25 Dose: 15 mcg Budesonide (Pulmicort Respules) 1 mg IH [id number] [facility]; Protocol Last Admin: 04/22/18 07:25 Dose: 1 mg Carvedilol (Coreg) 3.125 mg PO BID [facility]; Protocol Last Admin: 04/21/18 17:09 Dose: 3.125 mg Docusate Sodium (Colace) 100 mg PO TID [facility]; Protocol Last Admin: 04/21/18 17:09 Dose: 100 mg Ezetimibe (Zetia) 10 mg PO DAILY [facility]; Protocol Last Admin: 04/21/18 10:24 Dose: 10 mg Ergocalciferol (Drisdol 50,000 Intl Units Cap) 1 cap PO Q7D [facility] Last Admin: 04/18/18 17:30 Dose: 1 cap Guaifenesin (Robitussin) 200 mg PO Q4H PRN PRN Reason: Cough and congestion Home Med (Home Med) 1 unit PO DAILY [facility] Last Admin: 04/21/18 10:24 Dose: 1 unit Insulin Human Regular (Humulin R High) 0 units SC ACHS [facility]; Protocol Last Admin: 04/22/18 07:19 Dose: Not Given Losartan Potassium (Cozaar) 25 mg PO DAILY [facility]; Protocol Last Admin: 04/21/18 10:23 Dose: 25 mg Ondansetron HCl (Zofran Odt) 4 mg PO Q8H PRN PRN Reason: Nausea/Vomiting Polyethylene Glycol (Miralax) 17 gm PO DAILY [facility] Last Admin: 04/21/18 10:31 Dose: 17 gm Polysaccharide Iron Complex (Ferrex-150) 150 mg PO DAILY [facility] Last Admin: 04/21/18 10:23 Dose: 150 mg Results - Vital Signs Recent Vital Signs: Last Vital Signs Temp 98.4 F 04/22/18 06:00 Pulse 88 04/22/18 06:00 Resp 18 04/22/18 07:37 BP 132/62 04/22/18 06:00 Pulse Ox 96 04/22/18 07:37 - Labs Result Diagrams: 04/22/18 06:00 04/22/18 06:00 Labs: Laboratory Results - last 24 hr 04/21/18 04/21/18 04/21/18 11:52 14:30 16:02 WBC RBC Hgb Hct MCV MCH MCHC RDW Plt Count MPV Sodium Potassium Chloride Carbon Dioxide Anion Gap BUN Creatinine Est GFR ( Amer) Est GFR (Non-Af Amer) POC Glucose (mg/dL) 127 H 271 H Random Glucose Calcium Phosphorus Magnesium Total Bilirubin AST ALT Alkaline Phosphatase Total Protein Albumin Globulin Albumin/Globulin Ratio Stool Occult Blood Positive H 04/21/18 04/22/18 04/22/18 21:29 05:43 06:00 WBC 11.5 H D RBC 2.98 L Hgb 8.3 L Hct 26.3 L MCV 88.3 MCH 27.9 MCHC 31.6 RDW 14.4 Plt Count 343 MPV 9.4 Sodium Potassium Chloride Carbon Dioxide Anion Gap BUN Creatinine Est GFR ( Amer) Est GFR (Non-Af Amer) POC Glucose (mg/dL) 173 H 104 Random Glucose Calcium Phosphorus Magnesium Total Bilirubin AST ALT Alkaline Phosphatase Total Protein Albumin Globulin Albumin/Globulin Ratio Stool Occult Blood 04/22/18 06:00 WBC RBC Hgb Hct MCV MCH MCHC RDW Plt Count MPV Sodium 140 Potassium 3.9 Chloride 103 Carbon Dioxide 33 Anion Gap 8 L BUN 26 H Creatinine 0.9 Est GFR ( Amer) > 60 Est GFR (Non-Af Amer) 59 POC Glucose (mg/dL) Random Glucose 107 Calcium 8.7 Phosphorus 2.9 Magnesium 1.7 Total Bilirubin 0.3 AST 29 ALT 42 Alkaline Phosphatase 77 Total Protein 5.5 L Albumin 2.8 L Globulin 2.7 Albumin/Globulin Ratio 1.0 L Stool Occult Blood
[2018-04-22] MEDS: Iron Complex Polysacch 150mg Cap PO SCH (09:10)
[2018-04-22] MEDS: ROSUVASTATIN 20 MG PO SCH (09:11)
[2018-04-22] MEDS: POLYETHYLENE GLYCOL 3350 17 GM/Dose PACKET PO SCH (09:12)
[2018-04-22] MEDS ORDERED: guaiFENesin 200 mg/10 ml Syrup UD PO PRN (10:03)
--- NOTE | 2018-04-22 13:17 | PN ---
DATE: 04/22/2018 SUBJECTIVE: The patient is currently seen ambulating in her room in the TCU. She has been doing relatively well. No ongoing issues. Her BUN is down to 26 with a creatinine of 0.9. She is approaching her baseline levels. MEDICATIONS: Medication list reviewed. The patient is on Brovana, Colace, Coreg, losartan, vitamin D, DuoNeb, iron, Crestor, insulin, MiraLax, Pulmicort, Robitussin, Tylenol p.r.n., Zetia, and Zofran. OBJECTIVE: INTAKE AND OUTPUT: Intake 360, output not charted. VITAL SIGNS: Blood pressure 132/62, temperature 98.4, respiratory rate 18 with a pulse of 88. HEENT: Normocephalic, atraumatic. Conjunctivae remain pale. Sclerae nonicteric. NECK: Supple. No neck vein distention. CHEST: Clear to auscultation and percussion. No rales, rhonchi or wheezing. CARDIOVASCULAR: Regular rate and rhythm without audible murmurs, rubs or gallops. ABDOMEN: Soft. Bowel sounds normal. No rebound, guarding or masses. EXTREMITIES: Show no lower extremity cyanosis, clubbing or edema. LABORATORY DATA AND IMAGING: CBC from today; white blood cell count 11.5, hemoglobin 8.3 slightly lower with a platelet count of 343,000. Chemistry showed normal electrolytes. BUN 26, down from a high of 63, approaching baseline levels. Creatinine is 0.9, down from a high of 3.5. This is at baseline level. Liver enzymes are normal. Albumin is 2.8 with a calcium level of 8.7, phosphorus 2.9 with a magnesium of 1.7. Past iron saturations were 13%. The patient remains on oral iron therapy. ASSESSMENT: 1. Acute renal failure superimposed on chronic kidney disease stage II. This has resolved. 2. History of chronic obstructive pulmonary disease with exacerbation. Continue inhalation therapy. The patient is currently off steroids. 3. History of noninsulin-dependent diabetes mellitus, on oral medication. The patient has been receiving sliding scale insulin because of elevated glucose levels secondary to the use of steroids. 4. History of hypertension. Blood pressure control is excellent today. The patient will continue Coreg along with angiotensin receptor juvenal therapy. Does not appear that she will need calcium channel juvenal therapy at this point in time. 5. History of iron-deficiency anemia. Continue oral iron. Her saturation was 13%. PLAN: 1. Continue the patient on Coreg and losartan. 2. Continue to monitor labs on a periodic basis. 3. Encourage oral hydration. 4. Continue rehabilitation in the [facility]. Hugh Cuevas MD
[2018-04-23] MEDS: Insulin Reg-HIGH-Coverage SC SCH ×5 (00:35→22:38)
[2018-04-23] MEDS: Arformoterol 15 mcg/2 ml Inh Sol IH SCH ×2 (07:16→21:10)
[2018-04-23] MEDS: Budesonide 0.5 mg/2 ml Inhal Susp UD IH SCH ×2 (07:16→21:12)
[2018-04-23] MEDS: ROSUVASTATIN 20 MG PO SCH (10:58)
[2018-04-23] MEDS: Iron Complex Polysacch 150mg Cap PO SCH (10:58)
[2018-04-23] MEDS: POLYETHYLENE GLYCOL 3350 17 GM/Dose PACKET PO SCH (10:58)
--- NOTE | 2018-04-23 12:53 | CP.PCM.PN ---
<Dannielle Mast - Last Filed: 04/23/18 13:07> Subjective - Date & Time of Evaluation Date of Evaluation: 04/23/18 Time of Evaluation: 12:49 - Subjective Subjective: INTERNAL MEDICINE PROGRESS NOTE FOR DR. SANA Mast PGY1 Pt seen and examined at bedside this am. No acute nursing events overnight. Pt is tolerating her diet and PT well. She reports no abdominal pain, hematochezia, dizziness, nausea, vomiting, 12 point ROS is negative Objective - Vital Signs/Intake and Output Vital Signs (last 24 hours): Temp Pulse Resp BP Pulse Ox 98.4 F 96 H 18 166/79 H 93 L 04/22/18 06:00 04/23/18 10:57 04/23/18 08:42 04/23/18 10:57 04/23/18 08:42 Intake and Output: 04/23/18 04/23/18 06:59 18:59 Intake Total 380 Balance 380 - Medications Medications: Current Medications Acetaminophen (Tylenol 325mg Tab) 650 mg PO Q6H PRN; Protocol PRN Reason: Headache Last Admin: 04/22/18 22:13 Dose: 650 mg Acetaminophen (Tylenol 325mg Tab) 650 mg PO Q6H PRN; Protocol PRN Reason: Fever >100.4 F Albuterol/Ipratropium (Duoneb 3 Mg/0.5 Mg (3 Ml) Ud) 3 ml IH [id number] PRN; Protocol PRN Reason: Shortness of Breath Arformoterol Tartrate (Brovana) 15 mcg IH [id number] KALEE Last Admin: 04/23/18 07:16 Dose: 15 mcg Budesonide (Pulmicort Respules) 1 mg IH [id number] KALEE; Protocol Last Admin: 04/23/18 07:16 Dose: 1 mg Carvedilol (Coreg) 3.125 mg PO BID [facility]ALEE; Protocol Last Admin: 04/23/18 10:56 Dose: 3.125 mg Docusate Sodium (Colace) 100 mg PO TID [facility]ALEE; Protocol Last Admin: 04/23/18 10:56 Dose: 100 mg Ezetimibe (Zetia) 10 mg PO DAILY [facility]; Protocol Last Admin: 04/23/18 10:58 Dose: 10 mg Ergocalciferol (Drisdol 50,000 Intl Units Cap) 1 cap PO Q7D [facility] Last Admin: 04/18/18 17:30 Dose: 1 cap Guaifenesin (Robitussin) 200 mg PO Q4H PRN PRN Reason: Cough and congestion Last Admin: 04/22/18 22:13 Dose: 200 mg Home Med (Home Med) 1 unit PO DAILY [facility] Last Admin: 04/23/18 10:58 Dose: 1 unit Insulin Human Regular (Humulin R High) 0 units SC ACHS [facility]; Protocol Last Admin: 04/23/18 12:01 Dose: 2 units Losartan Potassium (Cozaar) 25 mg PO DAILY [facility]; Protocol Last Admin: 04/23/18 10:57 Dose: 25 mg Ondansetron HCl (Zofran Odt) 4 mg PO Q8H PRN PRN Reason: Nausea/Vomiting Polyethylene Glycol (Miralax) 17 gm PO DAILY [facility] Last Admin: 04/23/18 10:58 Dose: 17 gm Polysaccharide Iron Complex (Ferrex-150) 150 mg PO DAILY [facility] Last Admin: 04/23/18 10:58 Dose: 150 mg - Labs Labs: 04/22/18 06:00 04/22/18 06:00 - Constitutional Appears: Well, Non-toxic, No Acute Distress - Head Exam Head Exam: NORMAL INSPECTION, NORMOCEPHALIC - Eye Exam Eye Exam: EOMI, Normal appearance - ENT Exam ENT Exam: Mucous Membranes Moist, Normal Exam - Neck Exam Neck Exam: Normal Inspection - Respiratory Exam Respiratory Exam: Clear to Ausculation Bilateral, NORMAL BREATHING PATTERN - Cardiovascular Exam Cardiovascular Exam: REGULAR RHYTHM, +S1, +S2 - GI/Abdominal Exam GI & Abdominal Exam: Soft. absent: Tenderness - Extremities Exam Extremities Exam: Normal Inspection. absent: Calf Tenderness - Back Exam Back Exam: NORMAL INSPECTION - Neurological Exam Neurological Exam: Alert, Awake, Oriented x3 - Psychiatric Exam Psychiatric exam: Normal Affect, Normal Mood - Skin Skin Exam: Dry, Intact, Warm Assessment and Plan - Assessment and Plan (Free Text) Assessment: 88-year-old female past medical history significant for diverticulosis, diverticulitis, type 2 diabetes, emphysema, and hypertension that initially on 04/14/18 presented to the emergency room with shortness of breath. Patient admitted to TCU on 04/18/18. Planned for discharge on 04/26/18. Plan: Gait instability and generalized weakness Continue PT/OT as tolerated. Continue supportive care Constipation Started on colace and miralax. COPD exacerbation Resolving Continue nebulizer treatments. Continue Brovana and Pulmicort. Continue Robitussin. Continue prednisone taper. VANCE. Improved Continue to encourage PO intake. Will need repeat labs prior to discharge. Nephrology following. Anemia. Continue Ferrex. Continue to monitor CBC. DM2 Continue insulin sliding scale. Continue to monitor accuchecks Hypertension Continue Cozaar and Coreg Hypercholesterolemia Continue Zetia Vitamin D deficency Continue Vitamin D GI prophylaxis Protonix Case discussed in detail with patient and patient's daughter at bedside regarding current diagnosis and treatment plan. All questions answered. She is scheduled for colonosopy with Dr. Burks is scheduled for d/c from TCU on 04/26/18 Case seen, examined and discussed with attending physician, Dr. Villagran <Deborah Villagran - Last Filed: 04/24/18 16:06> Objective - Vital Signs/Intake and Output Vital Signs (last 24 hours): Temp Pulse Resp BP Pulse Ox 97.8 F 91 H 20 132/71 93 L 04/24/18 10:00 04/24/18 10:17 04/24/18 10:00 04/24/18 10:17 04/24/18 10:00 Intake and Output: 04/24/18 04/24/18 06:59 18:59 Intake Total 380 Balance 380 - Medications Medications: Current Medications Acetaminophen (Tylenol 325mg Tab) 650 mg PO Q6H PRN; Protocol PRN Reason: Headache Last Admin: 04/24/18 10:18 Dose: 650 mg Acetaminophen (Tylenol 325mg Tab) 650 mg PO Q6H PRN; Protocol PRN Reason: Fever >100.4 F Last Admin: 04/24/18 13:40 Dose: 650 mg Albuterol/Ipratropium (Duoneb 3 Mg/0.5 Mg (3 Ml) Ud) 3 ml IH [id number] PRN; Protocol PRN Reason: Shortness of Breath Arformoterol Tartrate (Brovana) 15 mcg IH [id number] KALEE Last Admin: 04/24/18 07:21 Dose: 15 mcg Budesonide (Pulmicort Respules) 1 mg IH [id number] KALEE; Protocol Last Admin: 04/24/18 07:21 Dose: 1 mg Carvedilol (Coreg) 3.125 mg PO BID [facility]; Protocol Last Admin: 04/24/18 10:16 Dose: 3.125 mg Docusate Sodium (Colace) 100 mg PO TID [facility]; Protocol Last Admin: 04/24/18 13:44 Dose: Not Given Ezetimibe (Zetia) 10 mg PO DAILY [facility]; Protocol Last Admin: 04/24/18 10:18 Dose: 10 mg Ergocalciferol (Drisdol 50,000 Intl Units Cap) 1 cap PO Q7D [facility] Last Admin: 04/18/18 17:30 Dose: 1 cap Guaifenesin (Robitussin) 200 mg PO Q4H PRN PRN Reason: Cough and congestion Last Admin: 04/22/18 22:13 Dose: 200 mg Home Med (Home Med) 1 unit PO DAILY [facility] Last Admin: 04/24/18 10:17 Dose: 1 unit Insulin Human Regular (Humulin R High) 0 units SC ACHS [facility]; Protocol Last Admin: 04/24/18 11:42 Dose: 1 units Losartan Potassium (Cozaar) 25 mg PO DAILY [facility]; Protocol Last Admin: 04/24/18 10:17 Dose: 25 mg Ondansetron HCl (Zofran Odt) 4 mg PO Q8H PRN PRN Reason: Nausea/Vomiting Polyethylene Glycol (Miralax) 17 gm PO DAILY [facility] Last Admin: 04/24/18 10:18 Dose: Not Given Polysaccharide Iron Complex (Ferrex-150) 150 mg PO DAILY [facility] Last Admin: 04/24/18 10:17 Dose: 150 mg - Labs Labs: 04/22/18 06:00 04/22/18 06:00 Attending/Attestation - Attestation I have personally seen and examined this patient.: Yes I have fully participated in the care of the patient.: Yes I have reviewed all pertinent clinical information, including history, physical exam and plan: Yes Notes (Text): 04/24/18 16:03 Attending note; Patient seen and examined with resident. Patient is alert and awake. Getting physical therapy. Denies any abdominal pain, nausea, vomiting. Denies any Melena. Patient is an 88-year-old female past medical history significant for diverticulosis, diverticulitis, type 2 diabetes, emphysema, and hypertension that initially on 04/14/18 presented to the emergency room with shortness of breath. Patient was transferred to TCU for gait instability and generalized weakness. 1. Gait instability and generalized weakness. Continue PT/OT as tolerated. 2. Constipation. Started on colace and miralax. No melena. 3. COPD exacerbation. Resolving. Continueduoneb, Brovana and Pulmicort. Continue Robitussin. 4. VANCE. Improved. stable creatinine. Nephrology following. 5. Anemia. Continue Ferrex. Hemoglobin stable. No active bleeding noted. GI follow-up appreciated. Needs outpatient workup. 6. Hypertension. Continue Cozaar and Coreg 7. Hypercholesterolemia. Continue Zetia 8. Vitamin D deficency. Continue Vitamin D. 9. GI prophylaxis. Protonix Upon discharge the patient will follow-up with PMD Dr. Olguin.
--- NOTE | 2018-04-23 16:57 | CON ---
DATE: 04/23/2018 GASTROENTEROLOGY CONSULTATION REQUESTING PHYSICIAN: Dr. Aroldo Medina. REASON FOR CONSULTATION: I have been asked to see this 88-year-old female who was admitted to the hospital on 04/14/2018 for exacerbation of COPD. She was treated with IV steroids, antibiotics and DuoNeb with improvement in her respiratory status. She was noted to also have acute kidney injury most likely secondary to dehydration. I have been asked to see this patient for anemia and heme-positive stool. She currently denies any abdominal pain, nausea, vomiting, rectal bleeding, melena or hematemesis. She does have a history of chronic anemia. The patient had a colonoscopy in 06/2017, which revealed diverticulosis, a nonbleeding cecal AVM and removal of a benign colon adenoma. Her hemoglobin currently is in the 8.3 g range. It was in the 10 g range on admission to the hospital. She did receive several liters of IV fluids during her hospitalization. PAST MEDICAL HISTORY: Notable for diverticulitis, COPD, diabetes mellitus, hypertension, and chronic anemia. SOCIAL HISTORY: She denies cigarette smoking or alcohol abuse. She consumes alcohol socially. FAMILY HISTORY: Noncontributory. REVIEW OF SYSTEMS: A 14-point review of systems is notable for shortness of breath and generalized weakness. MEDICATIONS AT HOME: Include losartan, Norvasc, Crestor, Coreg, and Zetia. PHYSICAL EXAMINATION: GENERAL: Elderly female seen in TCU in no acute distress. VITAL SIGNS: Reveal that she is afebrile. Blood pressure of 142/71, heart rate of 80. HEENT: Reveal sclerae to be white. Conjunctivae pale. NECK: Supple. CHEST: Reveals scattered rhonchi. HEART: Reveals regular rate and rhythm. ABDOMEN: Soft, nontender. EXTREMITIES: Show no edema. LABORATORY DATA: Reveal from 04/22/2018, hemoglobin of 8.3. Chemistries reveal normal electrolytes. BUN 26, creatinine 0.9, blood sugar 168. Stool for occult blood from 04/21/2018 was positive. IMPRESSION: An 88-year-old female with chronic obstructive pulmonary disease, diabetes mellitus, status post recent acute kidney injury secondary to dehydration with anemia and heme-positive stool. There is no clinical evidence of active gastrointestinal bleeding at this time. She did have a colonoscopy in 06/2017, which showed diverticulosis, a nonbleeding cecal arteriovenous malformation and a benign polyp. Her anemia is multifactorial including chronic disease and delusional from receiving IV fluids. RECOMMENDATIONS: The patient will be scheduled for an upper endoscopy on Monday to rule out an upper GI source of blood loss. Juwan Martinez MD
--- NOTE | 2018-04-23 18:00 | PN ---
DATE: 04/23/2018 SUBJECTIVE: The patient is seen sitting in chair. She is awake. She is alert. She is comfortable. She reports her cough is much better. She denies any shortness of breath. PHYSICAL EXAMINATION: GENERAL: Elderly lady sitting in chair. VITAL SIGNS: Blood pressure 166/79, heart rate 96, respiratory rate 18, temperature 98. HEENT: Normocephalic, atraumatic, positive pallor. NECK: Supple, no JVD. CARDIOPULMONARY: S1, S2, regular rate and rhythm, no murmur, no rub. LUNGS: Bilateral equal entry, bilaterally equal expansion, no rales. ABDOMEN: Obese, distended, soft, nontender, bowel sounds present. EXTREMITIES: No lower extremity edema. LABORATORY DATA: WBC 11.5, hemoglobin 8.3, hematocrit 26, platelets 343. No chemistries today. Yesterday, creatinine was 0.9, potassium was 3.9. Stool occults positive. CURRENT MEDICATIONS: List reviewed. ASSESSMENT: 1. Iron-deficiency anemia with stool occults positivity for colonoscopy on Monday. 2. Acute kidney injury, resolved. 3. Underlying chronic kidney disease stage 3. 4. Noninsulin-dependent diabetes mellitus. 5. Hypertension. PLAN: 1. Continue to monitor H and H. 2. Continue physical therapy. 3. Continue current management. 4. Avoid nephrotoxins. Halley Coreas MD
[2018-04-24] MEDS: Budesonide 0.5 mg/2 ml Inhal Susp UD IH SCH ×2 (07:21→19:15)
[2018-04-24] MEDS: Arformoterol 15 mcg/2 ml Inh Sol IH SCH ×2 (07:21→19:15)
[2018-04-24] MEDS: Insulin Reg-HIGH-Coverage SC SCH ×4 (07:29→22:03)
[2018-04-24] MEDS: ROSUVASTATIN 20 MG PO SCH (10:17)
[2018-04-24] MEDS: Iron Complex Polysacch 150mg Cap PO SCH (10:17)
[2018-04-24] MEDS: POLYETHYLENE GLYCOL 3350 17 GM/Dose PACKET PO SCH (10:18)
--- NOTE | 2018-04-24 10:38 | PN ---
DATE: 04/24/2018 SUBJECTIVE: The patient is currently seen sitting up in bed in the TCU. She has been doing relatively well. Her BUN and creatinine have dropped down to baseline levels. Her BUN was 26 with a creatinine of 0.9. MEDICATIONS: Medication list reviewed. The patient is currently on Brovana, Colace, Coreg, losartan, vitamin D, DuoNeb, oral iron, Crestor, insulin, MiraLax, Pulmicort, Robitussin, p.r.n. Tylenol, Zetia, and Zofran p.r.n. OBJECTIVE: VITAL SIGNS: Blood pressure is 127/66, temperature 98.7, respiratory rate 20 with a pulse of 80. Pulse ox is 93%. HEENT: Shows her be normocephalic, atraumatic. Conjunctivae are pale. Sclerae nonicteric. NECK: Supple. No neck vein distention. CHEST: Clear to auscultation and percussion with no rales, rhonchi or wheezing. CARDIOVASCULAR: Shows a regular rate and rhythm without audible murmurs, rubs or gallops. ABDOMEN: Soft. Bowel sounds normal. No rebound, guarding or masses. EXTREMITIES: Show no lower extremity cyanosis, clubbing or edema. LABORATORY DATA AND IMAGING STUDIES: No recent labs were done. Laboratory work done from 04/22/2018 showed a white blood cell count of 11.5, hemoglobin 8.3 with a platelet count of 343,000. Chemistry showed normal electrolytes. BUN 26 with creatinine of 0.9. ASSESSMENT: 1. Acute renal failure superimposed on chronic kidney disease stage II. Acute renal failure had resolved. The patient is at baseline levels. 2. History of chronic obstructive pulmonary disease with exacerbation. The patient will continue inhalation therapy. She is currently off steroids. 3. History of non-insulin dependent diabetes mellitus, on oral medication. The patient had been on sliding scale insulin because of elevated glucose levels secondary to steroids. Her last glucose level is significantly improved down at 116. 4. History of hypertension. Blood pressure control is excellent. The patient will continue Coreg along with angiotensin receptor juvenal therapy. No recent added calcium channel juvenal at this time. 5. History of iron-deficiency anemia. The patient will continue oral iron supplements. Iron saturation was 13%. She remains on Niferex. PLAN: 1. Continue present blood pressure medication. 2. Limit laboratory work in the TCU. 3. The patient should be sent home on oral iron supplements. 4. Continue oral hydration. 5. Continue rehabilitation in the TCU. Hugh Cuevas MD
[2018-04-25 06:11] LABS: HEMOGLOBIN 8.1 g/dL (12.0-16.0); MEAN CELL VOLUME 89.7 fl (80.0-105.0); MEAN CORPUSCULAR HEMOGLOBIN 27.9 pg (25.0-35.0); MEAN CORPUSCULAR HGB CONC 31.2 g/dl (31.0-37.0); MEAN PLATELET VOLUME 9.8 fl (7.0-11.0); RBC 2.9 10^6/uL (3.5-6.1); RED CELL DISTRIBUTION WIDTH 15.2 % (11.5-14.5); WHITE BLOOD COUNT 7.6 10^3/uL (4.5-11.0)
[2018-04-25 06:42] LABS: ALB/GLOB RATIO 1.1 (1.1-1.8); ALBUMIN 2.8 g/dL (3.0-4.8); ALT/SGPT 49 U/L (7-56); AST/SGOT 22 U/L (14-36); BLOOD UREA NITROGEN 17 mg/dL (7-21); CALCIUM 8.8 mg/dL (8.4-10.5); GFR NON-AFRICAN AMERICAN 59
[2018-04-25] MEDS: Arformoterol 15 mcg/2 ml Inh Sol IH SCH ×2 (07:06→19:43)
[2018-04-25] MEDS: Budesonide 0.5 mg/2 ml Inhal Susp UD IH SCH ×2 (07:06→19:43)
[2018-04-25] MEDS: Insulin Reg-HIGH-Coverage SC SCH ×5 (08:57→21:08)
[2018-04-25] MEDS: Iron Complex Polysacch 150mg Cap PO SCH (10:29)
[2018-04-25] MEDS: POLYETHYLENE GLYCOL 3350 17 GM/Dose PACKET PO SCH (10:30)
[2018-04-25] MEDS: ROSUVASTATIN 20 MG PO SCH (10:30)
--- NOTE | 2018-04-25 14:11 | CP.PCM.PN ---
<Dannielle Mast - Last Filed: 04/25/18 14:08> Subjective - Date & Time of Evaluation Date of Evaluation: 04/25/18 Time of Evaluation: 14:08 - Subjective Subjective: INTERNAL MEDICINE PROGRESS NOTE FOR DR. SANA Mast PGY1 Pt seen and examined at bedside this am. No acute nursing events overnight. She is been tolerating physical therapy well. Her SOB has improved. She doesn't report hematochezia. Her 12 point ROS is otherwise negative Objective - Vital Signs/Intake and Output Vital Signs (last 24 hours): Temp Pulse Resp BP Pulse Ox 97.8 F 77 20 124/61 93 L 04/24/18 10:00 04/25/18 10:29 04/24/18 10:00 04/25/18 10:29 04/24/18 10:00 Intake and Output: 04/25/18 04/25/18 06:59 18:59 Intake Total 380 Balance 380 - Medications Medications: Current Medications Acetaminophen (Tylenol 325mg Tab) 650 mg PO Q6H PRN; Protocol PRN Reason: Headache Last Admin: 04/24/18 10:18 Dose: 650 mg Acetaminophen (Tylenol 325mg Tab) 650 mg PO Q6H PRN; Protocol PRN Reason: Fever >100.4 F Last Admin: 04/24/18 13:40 Dose: 650 mg Albuterol/Ipratropium (Duoneb 3 Mg/0.5 Mg (3 Ml) Ud) 3 ml IH [id number] PRN; Protocol PRN Reason: Shortness of Breath Arformoterol Tartrate (Brovana) 15 mcg IH [id number] KALEE Last Admin: 04/25/18 07:06 Dose: 15 mcg Budesonide (Pulmicort Respules) 1 mg IH [id number] KALEE; Protocol Last Admin: 04/25/18 07:06 Dose: 1 mg Carvedilol (Coreg) 3.125 mg PO BID [facility]; Protocol Last Admin: 04/25/18 10:29 Dose: 3.125 mg Docusate Sodium (Colace) 100 mg PO TID [facility]; Protocol Last Admin: 04/25/18 10:28 Dose: 100 mg Ezetimibe (Zetia) 10 mg PO DAILY [facility]; Protocol Last Admin: 04/25/18 10:30 Dose: 10 mg Ergocalciferol (Drisdol 50,000 Intl Units Cap) 1 cap PO Q7D [facility] Last Admin: 04/18/18 17:30 Dose: 1 cap Guaifenesin (Robitussin) 200 mg PO Q4H PRN PRN Reason: Cough and congestion Last Admin: 04/22/18 22:13 Dose: 200 mg Home Med (Home Med) 1 unit PO DAILY [facility] Last Admin: 04/25/18 10:30 Dose: 1 unit Insulin Human Regular (Humulin R High) 0 units SC ACHS [facility]; Protocol Last Admin: 04/25/18 12:44 Dose: 2 units Losartan Potassium (Cozaar) 25 mg PO DAILY [facility]; Protocol Last Admin: 04/25/18 10:29 Dose: 25 mg Ondansetron HCl (Zofran Odt) 4 mg PO Q8H PRN PRN Reason: Nausea/Vomiting Polyethylene Glycol (Miralax) 17 gm PO DAILY [facility] Last Admin: 04/25/18 10:30 Dose: 17 gm Polysaccharide Iron Complex (Ferrex-150) 150 mg PO DAILY [facility] Last Admin: 04/25/18 10:29 Dose: 150 mg - Labs Labs: 04/25/18 05:30 04/25/18 05:30 - Constitutional Appears: Well, Non-toxic, No Acute Distress - Head Exam Head Exam: NORMAL INSPECTION, NORMOCEPHALIC - Eye Exam Eye Exam: EOMI, Normal appearance - ENT Exam ENT Exam: Mucous Membranes Moist, Normal Exam - Neck Exam Neck Exam: Normal Inspection - Respiratory Exam Respiratory Exam: Clear to Ausculation Bilateral, NORMAL BREATHING PATTERN - Cardiovascular Exam Cardiovascular Exam: REGULAR RHYTHM, +S1, +S2 - GI/Abdominal Exam GI & Abdominal Exam: Soft. absent: Tenderness - Extremities Exam Extremities Exam: Normal Inspection. absent: Tenderness - Back Exam Back Exam: NORMAL INSPECTION - Neurological Exam Neurological Exam: Alert, Awake, Oriented x3 - Psychiatric Exam Psychiatric exam: Normal Affect, Normal Mood - Skin Skin Exam: Dry, Intact, Warm Assessment and Plan - Assessment and Plan (Free Text) Assessment: 88-year-old female past medical history significant for diverticulosis, diverticulitis, type 2 diabetes, emphysema, and hypertension that initially on 04/14/18 presented to the emergency room with shortness of breath. Patient admitted to TCU on 04/18/18. Planned for discharge on 04/26/18. Plan: Gait instability and generalized weakness Continue PT/OT as tolerated. Continue supportive care Constipation Started on colace and miralax. COPD exacerbation Resolving Continue nebulizer treatments. Continue Brovana and Pulmicort. Continue Robitussin. Continue prednisone taper. VANCE. Improved Continue to encourage PO intake. Will need repeat labs prior to discharge. Nephrology following. Anemia. Continue Ferrex. Continue to monitor CBC. DM2 Continue insulin sliding scale. Continue to monitor accuchecks Hypertension Continue Cozaar and Coreg Hypercholesterolemia Continue Zetia Vitamin D deficency Continue Vitamin D GI prophylaxis Protonix Case discussed in detail with patient and patient's daughter at bedside regarding current diagnosis and treatment plan. All questions answered. She is scheduled for colonosopy with Dr. Martinez. She is scheduled for d/c from TCU on 04/26/18 Pt to follow up with PMD, Dr. Olguin upon discharge Case seen, examined and discussed with attending physician, Dr. Villagran <Deborah Villagran - Last Filed: 04/25/18 17:24> Objective - Vital Signs/Intake and Output Vital Signs (last 24 hours): Temp Pulse Resp BP Pulse Ox 97.8 F 80 20 124/61 94 L 04/25/18 10:00 04/25/18 16:13 04/25/18 10:00 04/25/18 10:29 04/25/18 16:13 Intake and Output: 04/25/18 04/25/18 06:59 18:59 Intake Total 380 Balance 380 - Medications Medications: Current Medications Acetaminophen (Tylenol 325mg Tab) 650 mg PO Q6H PRN; Protocol PRN Reason: Headache Last Admin: 04/24/18 10:18 Dose: 650 mg Acetaminophen (Tylenol 325mg Tab) 650 mg PO Q6H PRN; Protocol PRN Reason: Fever >100.4 F Last Admin: 04/24/18 13:40 Dose: 650 mg Albuterol/Ipratropium (Duoneb 3 Mg/0.5 Mg (3 Ml) Ud) 3 ml IH [id number] PRN; Protocol PRN Reason: Shortness of Breath Arformoterol Tartrate (Brovana) 15 mcg IH [id number] KALEE Last Admin: 04/25/18 07:06 Dose: 15 mcg Budesonide (Pulmicort Respules) 1 mg IH [id number] KALEE; Protocol Last Admin: 04/25/18 07:06 Dose: 1 mg Carvedilol (Coreg) 3.125 mg PO BID [facility]; Protocol Last Admin: 04/25/18 10:29 Dose: 3.125 mg Docusate Sodium (Colace) 100 mg PO TID [facility]ALEE; Protocol Last Admin: 04/25/18 10:28 Dose: 100 mg Ezetimibe (Zetia) 10 mg PO DAILY [facility]; Protocol Last Admin: 04/25/18 10:30 Dose: 10 mg Ergocalciferol (Drisdol 50,000 Intl Units Cap) 1 cap PO Q7D [facility] Last Admin: 04/18/18 17:30 Dose: 1 cap Guaifenesin (Robitussin) 200 mg PO Q4H PRN PRN Reason: Cough and congestion Last Admin: 04/22/18 22:13 Dose: 200 mg Home Med (Home Med) 1 unit PO DAILY [facility] Last Admin: 04/25/18 10:30 Dose: 1 unit Insulin Human Regular (Humulin R High) 0 units SC ACHS [facility]; Protocol Last Admin: 04/25/18 12:44 Dose: 2 units Losartan Potassium (Cozaar) 25 mg PO DAILY [facility]; Protocol Last Admin: 04/25/18 10:29 Dose: 25 mg Ondansetron HCl (Zofran Odt) 4 mg PO Q8H PRN PRN Reason: Nausea/Vomiting Polyethylene Glycol (Miralax) 17 gm PO DAILY [facility] Last Admin: 04/25/18 10:30 Dose: 17 gm Polysaccharide Iron Complex (Ferrex-150) 150 mg PO DAILY [facility] Last Admin: 04/25/18 10:29 Dose: 150 mg - Labs Labs: 04/25/18 05:30 04/25/18 05:30 Attending/Attestation - Attestation I have personally seen and examined this patient.: Yes I have fully participated in the care of the patient.: Yes I have reviewed all pertinent clinical information, including history, physical exam and plan: Yes Notes (Text): 04/25/18 17:23 Attending note; Patient seen and examined with resident. Patient is alert and awake. Getting physical therapy. Denies any abdominal pain, nausea, vomiting. Denies any Melena. Patient is an 88-year-old female past medical history significant for divert iculosis, diverticulitis, type 2 diabetes, emphysema, and hypertension that initially on 04/14/18 presented to the emergency room with shortness of breath. Patient was transferred to TCU for gait instability and generalized weakness. 1. Gait instability and generalized weakness. Continue PT/OT as tolerated. 2. Constipation. resolved. on colace and miralax. No melena. 3. COPD exacerbation. Resolving. Continueduoneb, Brovana and Pulmicort. Continue Robitussin. 4. VANCE. Improved. stable creatinine. Nephrology following. 5. Anemia. Continue Ferrex. Hemoglobin stable. No active bleeding noted. GI follow-up appreciated. Needs outpatient workup. 6. Hypertension. Continue Cozaar and Coreg 7. Hypercholesterolemia. Continue Zetia 8. Vitamin D deficency. Continue Vitamin D. 9. GI prophylaxis. Protonix possible discharge home Tomorrow. manager mutual fund evaluation requested for home care arrangements. Case discussed with patient's daughter in detail. Upon discharge the patient will follow-up with PMD Dr. Olguin.
--- NOTE | 2018-04-25 15:13 | PN ---
DATE: 04/25/2018 SUBJECTIVE The patient is lying in bed. Daughter is at the bedside. She is comfortable. She denies any abdominal pain, rectal bleeding, melena, nausea or vomiting. PHYSICAL EXAMINATION: VITAL SIGNS: Reveal temperature of 97.8, blood pressure 124/61, heart rate 77. HEENT: Reveal sclerae to be white. Conjunctivae pale. NECK: Supple. CHEST: Lungs are clear. HEART: Exam reveals regular rate and rhythm. ABDOMEN: Soft, nontender. EXTREMITIES: Show no edema. LABORATORY DATA: Reveal hemoglobin 8.1. IMPRESSION: An 88-year-old female with chronic anemia, heme-positive stool. No overt gastrointestinal bleeding. Her blood count has remained stable in the 8.1-8.2 g range. RECOMMENDATIONS: I have instructed the patient and the daughter to follow up with me in the office for an elective outpatient endoscopy. Juwan Martinez MD
[2018-04-25] MEDS: Ergocalciferol 50,000 Intl Units Cap PO SCH (16:01)
--- NOTE | 2018-04-25 21:12 | PN ---
DATE: 04/25/2018 SUBJECTIVE: The patient is seen sitting in chair. She is awake. She is alert. She is comfortable. She has no complaints at this time. PHYSICAL EXAMINATION: GENERAL: Elderly lady sitting in chair. VITAL SIGNS: Blood pressure 155/61, heart rate 80, respiratory rate 18, and temperature 97.8. HEENT: Normocephalic and atraumatic. NECK: Supple. No JVD. LUNGS: Bilateral equal air entry. No rales. EXTREMITIES: No lower extremity edema. LABORATORY DATA: Hemoglobin 8.1. Sodium 140, potassium 4.1, chloride 104, CO2 of 31, BUN 17, creatinine 0.9, glucose 116, calcium 8.8, and albumin 2.8. Stool occult positive. ASSESSMENT: 1. Severe anemia, iron deficiency, heme-positive anemia. 2. Resolved acute kidney injury. 3. Mvk-llderdf-gabxhzlkt diabetes mellitus. 4. Hypertension. 5. Underlying chronic kidney disease stage III. PLAN: 1. Dr. Martinez's note read, the patient is scheduled for outpatient colonoscopy now. 2. Stable from the renal standpoint. 3. Continue physical therapy. 4. Discharge planning. Halley Coreas MD
[2018-04-26] MEDS: Insulin Reg-HIGH-Coverage SC SCH (06:47)
[2018-04-26] MEDS: Budesonide 0.5 mg/2 ml Inhal Susp UD IH SCH (07:08)
[2018-04-26] MEDS: Arformoterol 15 mcg/2 ml Inh Sol IH SCH (07:08)
[2018-04-26] MEDS: Iron Complex Polysacch 150mg Cap PO SCH (09:53)
[2018-04-26] MEDS: ROSUVASTATIN 20 MG PO SCH (09:54)
[2018-04-26] MEDS: POLYETHYLENE GLYCOL 3350 17 GM/Dose PACKET PO SCH (09:54)
[2018-04-26 09:56] VITALS: PULSE 84; RESP 18; TEMP 97.5; O2SAT 93
[2018-04-26 10:21] VITALS: BP 124/61
--- NOTE | 2018-04-26 13:42 | CP.PCM.DIS ---
<Dannielle Mast - Last Filed: 04/26/18 13:38> Provider - Provider Date of Admission: 04/18/18 15:31 Attending physician: Deborah Villagran MD Primary care physician: Dr. Olguin Consults: 04/18/18 16:13 Physician Consult Routine Comment: Consulting Provider: Halley Coreas Consulting Physician: Halley Coreas Reason for Consult: VANCE 04/18/18 19:25 Inpatient CORE INSPECTOR Core Measures Referral Routine Comment: copd Physician Instructions: Reason For Exam: eval Social Work Referral Routine Comment: dc plan Physician Instructions: Reason For Exam: eval Transition In Care/Readmission Reduction Routine Comment: copd Physician Instructions: Reason For Exam: eval 04/22/18 08:59 Consult [Physician Consult] Routine Comment: Consulting Provider: Juwan Martinez Consulting Physician: Juwan Martinez Reason for Consult: hemoccult +, anemia Time Spent in preparation of Discharge (in minutes): 45 Hospital Course - Lab Results Lab Results: Most Recent Lab Values WBC 7.6 10^3/uL (4.5-11.0) D 04/25/18 05:30 RBC 2.90 10^6/uL (3.5-6.1) L 04/25/18 05:30 Hgb 8.1 g/dL (12.0-16.0) L 04/25/18 05:30 Hct 26.0 % (36.0-48.0) L 04/25/18 05:30 MCV 89.7 fl (80.0-105.0) 04/25/18 05:30 MCH 27.9 pg (25.0-35.0) 04/25/18 05:30 MCHC 31.2 g/dl (31.0-37.0) 04/25/18 05:30 RDW 15.2 % (11.5-14.5) H 04/25/18 05:30 Plt Count 272 10^3/uL (120.0-450.0) 04/25/18 05:30 MPV 9.8 fl (7.0-11.0) 04/25/18 05:30 Sodium 140 mmol/L (132-148) 04/25/18 05:30 Potassium 4.1 mmol/L (3.6-5.0) 04/25/18 05:30 Chloride 104 mmol/L (98-107) 04/25/18 05:30 Carbon Dioxide 31 mmol/L (21-33) 04/25/18 05:30 Anion Gap 8 (10-20) L 04/25/18 05:30 BUN 17 mg/dL (7-21) 04/25/18 05:30 Creatinine 0.9 mg/dl (0.7-1.2) 04/25/18 05:30 Est GFR ( Amer) > 60 04/25/18 05:30 Est GFR (Non-Af Amer) 59 04/25/18 05:30 POC Glucose (mg/dL) 112 mg/dL (65-110) H 04/26/18 06:37 Random Glucose 116 mg/dL (70-110) H 04/25/18 05:30 Calcium 8.8 mg/dL (8.4-10.5) 04/25/18 05:30 Phosphorus 2.9 mg/dL (2.5-4.5) 04/22/18 06:00 Magnesium 1.7 mg/dL (1.7-2.2) 04/22/18 06:00 Total Bilirubin 0.3 mg/dL (0.2-1.3) 04/25/18 05:30 AST 22 U/L (14-36) 04/25/18 05:30 ALT 49 U/L (7-56) 04/25/18 05:30 Alkaline Phosphatase 81 U/L (38-126) 04/25/18 05:30 Total Protein 5.4 g/dL (5.8-8.3) L 04/25/18 05:30 Albumin 2.8 g/dL (3.0-4.8) L 04/25/18 05:30 Globulin 2.6 gm/dL 04/25/18 05:30 Albumin/Globulin Ratio 1.1 (1.1-1.8) 04/25/18 05:30 Vitamin B12 534 pg/mL (239-931) 04/23/18 06:00 Stool Occult Blood Positive (NEGATIVE) H 04/21/18 14:30 - Hospital Course Hospital Course: Upon Admission: Patient is an 88-year-old female past medical history significant for diverticulosis, diverticulitis, type 2 diabetes, emphysema, and hypertension that initially on 04/14/18 presented to the emergency room with shortness of breath. Patient was admitted with COPD exacerbation, anemia, leukocytosis, type 2 diabetes, hypertension, and hyperlipidemia. Patient was treated with nebulizer treatments and Solu-Medrol with improvement. Leukocytosis resolved. Patient developed VANCE which improved. Patient was seen by tray worker. Patient was seen by physical therapy who recommended TCU. Patient was discharged to TCU. Hospital Course: Pt had underwent rehabilitation in TCU and had improved significantly. During rehab, pts hemoglobin was followed. Dr. Martinez from GI was aware + FOBT and slowly dropping hemoglobin. He recommended outpatient colonoscopic evaluation. She was continued on her home medications. She was tolerating PT without respiratory Upon Discharge: Pt reports no acute complaints. She denies shortness of breath. She denies hematochezia. 12 point ROS was negative. She has been informed to follow up with PMD and booth usher for colonoscopy. She had received her medications for discharge. Vital signs are stable. She is hemodynamically stable. Discharge Exam - Head Exam Head Exam: NORMAL INSPECTION, NORMOCEPHALIC Discharge Plan - Discharge Medications Prescriptions: Arformoterol [Brovana] 15 mcg IH [id number] #1 neb Budesonide [Pulmicort Respules] 1 mg IH [id number] #1 neb Docusate [Colace] 100 mg PO BID #7 cap Ergocalciferol [Drisdol 50,000 Intl Units Cap] 1 cap PO Q7D #7 cap Ezetimibe [Zetia] 10 mg PO DAILY 7 Days tab Iron Polysaccharide [Ferrex-150] 150 mg PO DAILY #7 cap Losartan [Cozaar] 25 mg PO DAILY #7 tab Polyethylene Glycol 3350 [Miralax] 17 gm PO DAILY #7 packet Rosuvastatin Calcium [Crestor] 20 mg PO DAILY #7 tab SITagliptin [Januvia] 50 mg PO DAILY #7 tab - Follow Up Plan Condition: GOOD Disposition: HOME/ ROUTINE Instructions: COPD Including Emphysema (DC), Exacerbation of COPD (DC), Medicines for Chronic Obstructive Pulmonary Disease (COPD) Additional Instructions: Please follow these instructions upon discharge from the hospital: Please make an appointment with your primary care doctor, Dr. Olguin within 1 week of being discharged from the hospital Please continue taking the medications given to you in the hospital. Please ask Dr. Olguin for any refills that you may require Please take your inhalers has directed, if you experience difficulty breathing, please visit the nearest emergency room. Please visit your booth usher (stomach doctor), Dr. Martinez within 1 week of being discharged from the hospital. Please schedule an appointment at his office. If your symptoms return, please visit the nearest emergency room. Referrals: Juwan Martinez MD [Staff Provider] - <Deborah Villagran - Last Filed: 04/26/18 16:18> Provider - Provider Date of Admission: 04/18/18 15:31 Attending physician: Deborah Villagran MD Consults: 04/18/18 16:13 Physician Consult Routine Comment: Consulting Provider: Halley Coreas Consulting Physician: Halley Coreas Reason for Consult: VANCE 04/18/18 19:25 Inpatient CORE INSPECTOR Core Measures Referral Routine Comment: copd Physician Instructions: Reason For Exam: eval Social Work Referral Routine Comment: dc plan Physician Instructions: Reason For Exam: eval Transition In Care/Readmission Reduction Routine Comment: copd Physician Instructions: Reason For Exam: eval 04/22/18 08:59 Consult [Physician Consult] Routine Comment: Consulting Provider: Juwan Martinez Consulting Physician: Juwan Martinez Reason for Consult: hemoccult +, anemia Hospital Course - Lab Results Lab Results: Most Recent Lab Values WBC 7.6 10^3/uL (4.5-11.0) D 04/25/18 05:30 RBC 2.90 10^6/uL (3.5-6.1) L 04/25/18 05:30 Hgb 8.1 g/dL (12.0-16.0) L 04/25/18 05:30 Hct 26.0 % (36.0-48.0) L 04/25/18 05:30 MCV 89.7 fl (80.0-105.0) 04/25/18 05:30 MCH 27.9 pg (25.0-35.0) 04/25/18 05:30 MCHC 31.2 g/dl (31.0-37.0) 04/25/18 05:30 RDW 15.2 % (11.5-14.5) H 04/25/18 05:30 Plt Count 272 10^3/uL (120.0-450.0) 04/25/18 05:30 MPV 9.8 fl (7.0-11.0) 04/25/18 05:30 Sodium 140 mmol/L (132-148) 04/25/18 05:30 Potassium 4.1 mmol/L (3.6-5.0) 04/25/18 05:30 Chloride 104 mmol/L (98-107) 04/25/18 05:30 Carbon Dioxide 31 mmol/L (21-33) 04/25/18 05:30 Anion Gap 8 (10-20) L 04/25/18 05:30 BUN 17 mg/dL (7-21) 04/25/18 05:30 Creatinine 0.9 mg/dl (0.7-1.2) 04/25/18 05:30 Est GFR ( Amer) > 60 04/25/18 05:30 Est GFR (Non-Af Amer) 59 04/25/18 05:30 POC Glucose (mg/dL) 112 mg/dL (65-110) H 04/26/18 06:37 Random Glucose 116 mg/dL (70-110) H 04/25/18 05:30 Calcium 8.8 mg/dL (8.4-10.5) 04/25/18 05:30 Phosphorus 2.9 mg/dL (2.5-4.5) 04/22/18 06:00 Magnesium 1.7 mg/dL (1.7-2.2) 04/22/18 06:00 Total Bilirubin 0.3 mg/dL (0.2-1.3) 04/25/18 05:30 AST 22 U/L (14-36) 04/25/18 05:30 ALT 49 U/L (7-56) 04/25/18 05:30 Alkaline Phosphatase 81 U/L (38-126) 04/25/18 05:30 Total Protein 5.4 g/dL (5.8-8.3) L 04/25/18 05:30 Albumin 2.8 g/dL (3.0-4.8) L 04/25/18 05:30 Globulin 2.6 gm/dL 04/25/18 05:30 Albumin/Globulin Ratio 1.1 (1.1-1.8) 04/25/18 05:30 Vitamin B12 534 pg/mL (239-931) 04/23/18 06:00 Stool Occult Blood Positive (NEGATIVE) H 04/21/18 14:30 Attending/Attestation - Attestation I have personally seen and examined this patient.: Yes I have fully participated in the care of the patient.: Yes I have reviewed all pertinent clinical information, including history, physical exam and plan: Yes Notes (Text): 04/26/18 16:17 Attending note; Patient seen and examined with resident. Patient's daughter by the bedside. Patient is an 88-year-old female past medical history significant for diverticulosis, diverticulitis, type 2 diabetes, emphysema, and hypertension that initially on 04/14/18 presented to the emergency room with shortness of breath. Patient was transferred to TCU for gait instability and generalized weakness. 1. Gait instability and generalized weakness. resolved with PT. 2. Constipation. resolved. on colace and miralax. No melena. 3. COPD exacerbation. Resolved. Continueduoneb, Brovana and Pulmicort. Continue Robitussin. 4. VANCE. resolved. 5. Anemia. Continue Ferrex. Hemoglobin stable. No active bleeding noted. GI follow-up appreciated. Needs outpatient workup. 6. Hypertension. Continue Cozaar and Coreg 7. Hypercholesterolemia. Continue Zetia 8. Vitamin D deficency. Continue Vitamin D. 9. GI prophylaxis. Protonix discharge home Today. fishing manager evaluation requested for home care arrangements. Case discussed with patient's daughter in detail. Upon discharge the patient will follow-up with PMD Dr. Olguin. 04/26/18 16:18
--- NOTE | 2018-04-26 18:54 | PN ---
DATE: 04/26/2018 SUBJECTIVE: The patient is seen sitting in chair. She is awake. She is alert. She is comfortable. PHYSICAL EXAMINATION GENERAL: Elderly lady, sitting in chair. VITAL SIGNS: Blood pressure 124/61, heart rate 84, respiratory rate 18, temperature 97.5. NECK: Supple. No JVD. LUNGS: Bilateral equal air entry. No rales. EXTREMITIES: No lower extremity edema. LABORATORY DATA: No new labs. MEDICATIONS: List reviewed. ASSESSMENT: 1. Severe iron deficiency anemia, for colonoscopy as outpatient. 2. Acute kidney injury, resolved. 3. Chronic kidney disease stage III, stable. 4. Chronic obstructive pulmonary disease excerebration, much improved. 5. Noninsulin-dependent diabetes mellitus, uncontrolled. PLAN: 1. The patient to get colonoscopy as outpatient. 2. Continue current management. 3. No objection to discharge from the renal standpoint. Halley Coreas MD
== END 2018-04-26 13:02 | disposition home health service (06) | DRG 945 ==
LOC: TRCU 15:31
PROVIDERS: ADMIT Internal Medicine; ATTEND Internal Medicine
PROC: F07Z9FZ Gait Training/Functional Ambulation Treatment using Assistive, Adaptive, Supportive or Protective Equipment (ICD-10-PCS; principal; 2018-04-20)
PROC: F07Z5ZZ Bed Mobility Treatment (ICD-10-PCS; 2018-04-20)
PROC: F07Z8FZ Transfer Training Treatment using Assistive, Adaptive, Supportive or Protective Equipment (ICD-10-PCS; 2018-04-20)
PROC: F07L6YZ Therapeutic Exercise Treatment of Musculoskeletal System - Lower Back / Lower Extremity using Other Equipment (ICD-10-PCS; 2018-04-20)
PROC: F08Z1FZ Dressing Techniques Treatment using Assistive, Adaptive, Supportive or Protective Equipment (ICD-10-PCS; 2018-04-20)
PROC: F08Z2ZZ Grooming/Personal Hygiene Treatment (ICD-10-PCS; 2018-04-20)
DX: R53.1 Weakness (principal); J44.1 Chronic obstructive pulmonary disease with (acute) exacerbation; R26.9 Unspecified abnormalities of gait and mobility; I12.9 Hypertensive chronic kidney disease with stage 1 through stage 4 chronic kidney disease, or unspecified chronic kidney disease; N18.3 Chronic kidney disease, stage 3 (moderate); E11.22 Type 2 diabetes mellitus with diabetic chronic kidney disease; K57.90 Diverticulosis of intestine, part unspecified, without perforation or abscess without bleeding; K55.20 Angiodysplasia of colon without hemorrhage; D50.9 Iron deficiency anemia, unspecified; D63.8 Anemia in other chronic diseases classified elsewhere; E11.65 Type 2 diabetes mellitus with hyperglycemia; E55.9 Vitamin D deficiency, unspecified; E78.00 Pure hypercholesterolemia, unspecified; E78.5 Hyperlipidemia, unspecified; K59.00 Constipation, unspecified; D72.829 Elevated white blood cell count, unspecified; Z79.4 Long term (current) use of insulin

== ENCOUNTER 2018-05-03 06:17 | Day surgery (SDC) | payer MEDICARE, MEDICAID ==
[2018-05-03] MEDS ORDERED: Propofol 10 mg/ml Inj (20 ML) ONE (08:04)
[2018-05-03] MEDS ORDERED: Simethicone 40 mg/0.6 ml Liquid (30 ml) ONE (08:06)
[2018-05-03] MEDS ORDERED: Sodium Chloride 0.9% 1,000 ML IV SCH (08:30)
[2018-05-03 10:24] VITALS: BP 134/63; PULSE 80; RESP 16; TEMP 98; O2SAT 95
== END 2018-05-03 10:20 | disposition home or self-care (01) ==
LOC: ENDO 06:17
PROVIDERS: ATTEND Specialist
DX: K44.9 Diaphragmatic hernia without obstruction or gangrene (principal); K31.89 Other diseases of stomach and duodenum; D50.9 Iron deficiency anemia, unspecified; Z86.010 Personal history of colon polyps
CPT/HCPCS: 43239; 82948; 88305; 88342; J2405; J2704; J7030; J7040

== ENCOUNTER 2018-10-09 10:28 | Inpatient (IN) | payer MEDICARE, MEDICAID ==
[2018-10-09 10:35] VITALS: BMI 28.3
[2018-10-09] MEDS ORDERED: Magnesium Sulfate 2 gm/50 ml 2 GM/50 ML BAG IVPB ONE (11:03)
--- NOTE | 2018-10-09 11:05 | ED PDOC ---
Arrival/HPI - General Historian: Patient, Family - History of Present Illness Narrative History of Present Illness (Text): 10/09/18 10:55 Pt is an 88 yo female with a PMH of diverticulosis, DM, emphysema, HLD, "kidney problems" and HTN who presents to the ED complaining of SOB and cough which started 1 week ago and after failing out pt therapy. Pt family is at the bedside to assist in translation and also to relay the history. Pt has experienced white sputum production which has worsened even with out pt treatment given to her by Dr Olguin. Pt was advised by Dr Olguin to present to the ED since her respiratory symptoms have worsened. Pt has been using albuterol and proair. Denies fevers, chills. Pt uses 5 pillow to sleep on at night to prevent SOB. Time/Duration: 1 week Symptom Onset: Gradual Symptom Course: Worsening Severity Level: 8 <Ehsan Rasheed - Last Filed: 10/09/18 12:15> <Valerio Carbone DO - Last Filed: 10/09/18 18:22> - General Chief Complaint: Shortness Of Breath Time Seen by Provider: 10/09/18 10:31 Past Medical History - Provider Review Nursing Documentation Reviewed: Yes - Infectious Disease Hx of Infectious Diseases: None - Tetanus Immunization Tetanus Immunization: Up to Date - Reproductive Menopause: Yes - Cardiac Hx Cardiac Disorders: No Hx Pacemaker: No - Pulmonary Hx Chronic Obstructive Pulmonary Disease (COPD): Yes - Neurological Hx Paralysis: No - Renal Hx Renal Failure: Yes (CKD St II/III) - Endocrine/Metabolic Hx Diabetes Mellitus Type 2: Yes - Hematological/Oncological Hx Blood Transfusions: Yes Hx Blood Transfusion Reaction: No - Musculoskeletal/Rheumatological Hx Musculoskeletal Disorders: Yes - Gastrointestinal Hx Gastrointestinal Disorders: No (bm x 4 days does not feel constipated) - Genitourinary/Gynecological Hx Reproductive Disorders: No - Psychiatric Hx Emotional Abuse: No Hx Physical Abuse: No Hx Substance Use: No - Past Surgical History Past Surgical History: No Previous - Surgical History Hx Cardiac Catheterization: Yes - Anesthesia Hx Anesthesia: Yes Hx Anesthesia Reactions: Yes (NAUSEA AND VOMITING PER DAUGHTER) Hx Malignant Hyperthermia: No - Suicidal Assessment Feels Threatened In Home Enviroment: No <Ehsan Rasheed - Last Filed: 10/09/18 12:15> Family/Social History Family/Social History: Diabetes, Hypertension Smoking Status: Never Smoked Hx Alcohol Use: Yes (SOCIALLY) Hx Substance Use: No Hx Substance Use Treatment: No <Ehsan Rasheed - Last Filed: 10/09/18 12:15> Allergies/Home Meds <Ehsan Rasheed - Last Filed: 10/09/18 12:15> <Tona DOValerio - Last Filed: 10/09/18 18:22> Allergies/Adverse Reactions: Allergies atorvastatin calcium [From Lipitor] Allergy (Verified 06/08/17 15:28) DIARRHEA codeine Allergy (Verified 06/08/17 15:28) RASH aspirin Adverse Reaction (Verified 04/23/18 11:20) VOMITING Home Medications: Home Meds Medication Instructions Recorded Confirmed Carvedilol [Coreg] 3.125 mg PO BID 04/25/17 05/03/18 Review of Systems - Review of Systems Constitutional: Normal Eyes: Normal ENT: Normal Respiratory: SOB, Cough, Sputum, Wheezing Cardiovascular: Normal Gastrointestinal: Normal Musculoskeletal: Normal Skin: Normal Neurological: Normal Endocrine: Normal Hemo/Lymphatic: Normal Psychiatric: Normal <Ehsan Rasheed - Last Filed: 10/09/18 12:15> Physical Exam Vital Signs Reviewed: Yes Vital Signs Temp Pulse Resp BP Pulse Ox 10/09/18 10:50 97.6 F 89 16 155/69 H 99 Temperature: Afebrile Blood Pressure: Normal Pulse: Regular Respiratory Rate: Normal Appearance: Positive for: Comfortable Mental Status: Positive for: Alert and Oriented X 3 - Systems Exam Head: Present: Atraumatic, Normocephalic Pupils: Present: PERRL Extroacular Muscles: Present: EOMI Conjunctiva: Present: Normal Mouth: Present: Moist Mucous Membranes Respiratory/Chest: Present: Wheezes, Decreased Breath Sounds Cardiovascular: Present: Regular Rate and Rhythm, Normal S1, S2 Abdomen: Present: Normal Bowel Sounds. No: Tenderness, Distention Upper Extremity: Present: Normal Inspection. No: Edema Lower Extremity: Present: Normal Inspection. No: Edema Neurological: Present: GCS=15, CN II-XII Intact Skin: Present: Warm, Dry, Normal Color Psychiatric: Present: Alert, Oriented x 3 <Estefanía Rasheedne Wellington - Last Filed: 10/09/18 12:15> Vital Signs Temp Pulse Resp BP Pulse Ox 10/09/18 10:50 97.6 F 89 16 155/69 H 99 <Valerio Carbone DO - Last Filed: 10/09/18 18:22> Medical Decision Making ED Course and Treatment: 10/09/18 11:50 cardiac enzymes, troponin negative CMP Mg Blood cultures duonebs solu medrol CXR EKG UA 10/09/18 12:09 pt and family reports some improvement with kassandra Carbone spoke with Dr Villagran on the phone who accepts pt to the hospitalist service to the medical floor Pt seen, examined, assessment and plan discussed with Dr Tona Rasheed PGY1 Re-evaluation Time: 12:09 <Ehsan Rasheed - Last Filed: 10/09/18 12:15> ED Course and Treatment: 10/09/18 11:33 An 88 year old female, whose past medical history includes diverticulosis, DM, e mphysema, HLD, and HTN, presents to the emergency department with a complaint of 1 week duration shortness of breath. In agreement with resident note, which includes further HPI details. Patient was seen and evaluated with resident, came up with plan and treatment together. - RAD Interpretation Radiology Orders: 10/09/18 11:02 CHEST PORTABLE [RAD] Stat - Medication Orders Current Medication Orders: Albuterol/Ipratropium (Duoneb 3 Mg/0.5 Mg (3 Ml) Ud) 3 ml IH Q15M KALEE Stop: 10/09/18 11:46 Last Admin: 10/09/18 11:18 Dose: 3 ml Magnesium Sulfate (Magnesium Sulfate 2 Gm/50 Ml Water) 2 gm in 50 mls @ 50 mls/hr IVPB ONCE ONE Stop: 10/09/18 12:02 Last Admin: 10/09/18 11:18 Dose: 50 mls/hr eMAR Start Stop Document 10/09/18 11:18 ARNIE (Rec: 10/09/18 11:19 ARNIE [id number]) Intravenous Solution Start Date 10/09/18 Start Time 11:19 End Date 10/09/18 End time 12:19 Total Infusion Time 60 Discontinued Medications Methylprednisolone (Solu-Medrol) 125 mg IVP STAT STA Stop: 10/09/18 11:04 Last Admin: 10/09/18 11:18 Dose: 125 mg IVP Administration Document 10/09/18 11:18 ARNIE (Rec: 10/09/18 11:18 ARNIE [id number]) Charges for Administration # of IVP Administrations 1 <Valerio Carbone DO - Last Filed: 10/09/18 18:22> - Scribe Statement The provider has reviewed the documentation as recorded by the Scribe Daja Montez Provider Scribe Attestation: All medical record entries made by the Scribe were at my direction and personally dictated by me. I have reviewed the chart and agree that the record accurately reflects my personal performance of the history, physical exam, medical decision making, and the department course for this patient. I have also personally directed, reviewed, and agree with the discharge instructions and disposition. <Valerio Carbone DO - Last Filed: 10/09/18 18:22> Disposition/Present on Arrival - Present on Arrival Any Indicators Present on Arrival: No History of DVT/PE: No History of Uncontrolled Diabetes: Yes Urinary Catheter: No History of Decub. Ulcer: No History Surgical Site Infection Following: None - Disposition Have Diagnosis and Disposition been Completed?: Yes Disposition Time: 12:16 <Ehsan Rasheed - Last Filed: 10/09/18 12:15> - Disposition Disposition Time: 12:05 <Valerio Carbone DO - Last Filed: 10/09/18 18:22> - Disposition Diagnosis: COPD exacerbation Disposition: HOSPITALIZED Patient Problems: Current Active Problems Problem Status Onset COPD exacerbation Acute Condition: FAIR
[2018-10-09] MEDS: Albuterol-Ipratrop 3 mg / 0.5 (3 ml) UD IH SCH ×3 (11:18→11:48)
[2018-10-09 11:25] LABS: BASO # 0.05 K/mm3 (0.0-2.0); BASO % 0.6 % (0.0-3.0); EOS # 0.2 (0.0-0.7); EOS % 2.5 % (1.5-5.0); HEMOGLOBIN 10.2 g/dL (12.0-16.0); LYMPH % 11.4 % (22.0-35.0); MEAN CELL VOLUME 92.6 fl (80.0-105.0); MEAN CORPUSCULAR HGB CONC 31.3 g/dl (31.0-37.0); MEAN PLATELET VOLUME 9.9 fl (7.0-11.0); MONO % 11.1 % (1.0-6.0); RBC 3.52 10^6/uL (3.5-6.1); RED CELL DISTRIBUTION WIDTH 13.5 % (11.5-14.5); WHITE BLOOD COUNT 8.9 10^3/uL (4.5-11.0)
[2018-10-09 11:36] LABS: ALB/GLOB RATIO 1.2 (1.1-1.8); ALBUMIN 3.8 g/dL (3.0-4.8); ALT/SGPT 19 U/L (7-56); AST/SGOT 27 U/L (14-36); BLOOD UREA NITROGEN 10 mg/dL (7-21); CALCIUM 8.9 mg/dL (8.4-10.5); GFR NON-AFRICAN AMERICAN > 60
[2018-10-09 11:47] LABS: TROPONIN I 0.01 ng/mL
--- NOTE | 2018-10-09 12:07 | RAD ---
Date of service: 10/09/2018 HISTORY: cough r/o infiltrate COMPARISON: 04/16/2018. FINDINGS: LUNGS: The lungs are hyperinflated and there is peribronchial thickening with chronic changes in both lungs. No focal consolidation. PLEURA: No pleural effusions or pneumothorax. CARDIOVASCULAR: The heart is normal in size. There are aortic atherosclerotic calcifications present. OSSEOUS STRUCTURES: Within normal limits for the patient's age. VISUALIZED UPPER ABDOMEN: Normal. OTHER FINDINGS: None. IMPRESSION: No active pulmonary disease. COPD.
[2018-10-09] MEDS ORDERED: Albuterol-Ipratrop 3 mg / 0.5 (3 ml) UD IH PRN (13:47)
[2018-10-09] MEDS ORDERED: Azithromycin 500MG/NS 250ml 500 MG/250 ML BAG IVPB STA (13:50)
[2018-10-09] MEDS ORDERED: Albuterol-Ipratrop 3 mg / 0.5 (3 ml) UD IH SCH (14:00)
[2018-10-09] MEDS ORDERED: guaiFENesin 200 mg/10 ml Syrup UD PO PRN (14:01)
--- NOTE | 2018-10-09 14:09 | CP.PCM.HP ---
<Tian Lew - Last Filed: 10/09/18 17:14> History of Present Illness - History of Present Illness History of Present Illness: Hospitalist Service H&P Tian Lew DO, PGY-3 CC: shortness of breath This is a 88 year old female with PMH of diverticulosis, DM, HTN, HLD, COPD/emphysema, and unspecified "kidney problems" who presents to the emergency department complaining of worsening shortness of breath and cough x1 week, initially with clear/white sputum, but starting with green sputum today. Reports seeing her PMD, Dr. Davidson 1 week prior, given proAir for her symptoms, an d instructed to present to the ED for steroids and possible admission if no improvement with the pro-Air. Patient denies acutely gasping for air, sensation of choking, syncope/pre-sycope, hemoptysis, fevers, chills, nausea, emesis, diarrhea, dysuria, hematuria. Reports compliance with all home medications. No recent changes in mets other than the pro-Air. Denies sick contacts, no changes in PO intake. Family at bedside (grand-daughter) reports patient mostly at baseline level of function; family and pt notice increased shortness of breath with activities that would not prompt this, but she is still independent in most ADLs. 12-system ROS reviewed and negative, except as above. PMH: as above PSH: R eye cataract, denies otherwise Social Hx: Former smoker (2 ppd x 30-45 yrs, quit 40yr ago), Fam: Non-contributory PMD: [place] Present on Admission - Present on Admission Any Indicators Present on Admission: No History of DVT/PE: No History of Uncontrolled Diabetes: No Review of Systems - Review of Systems All systems: reviewed and no additional remarkable complaints except (as per HPI) Past Patient History - Infectious Disease Hx of Infectious Diseases: None - Tetanus Immunizations Tetanus Immunization: Up to Date - Past Social History Smoking Status: Never Smoked - CARDIAC Hx Cardiac Disorders: No Hx Pacemaker: No - PULMONARY Hx Chronic Obstructive Pulmonary Disease (COPD): Yes - NEUROLOGICAL Hx Paralysis: No - 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) - ENDOCRINE/METABOLIC Hx Diabetes Mellitus Type 2: Yes - HEMATOLOGICAL/ONCOLOGICAL Hx Blood Transfusions: Yes Hx Blood Transfusion Reaction: No - MUSCULOSKELETAL/RHEUMATOLOGICAL Hx Musculoskeletal Disorders: Yes - GASTROINTESTINAL Hx Gastrointestinal Disorders: No (bm x 4 days does not feel constipated) - GENITOURINARY/GYNECOLOGICAL Hx Reproductive Disorders: No - PSYCHIATRIC Hx Emotional Abuse: No Hx Physical Abuse: No Hx Substance Use: No - SURGICAL HISTORY Hx Cardiac Catheterization: Yes - ANESTHESIA Hx Anesthesia: Yes Hx Anesthesia Reactions: Yes (NAUSEA AND VOMITING PER DAUGHTER) Hx Malignant Hyperthermia: No Meds Home Medications: Home Medication List Medication Instructions Recorded Confirmed Type Albuterol 0.083% [Albuterol 0.083% 2.5 mg IH Q6H #1 inh 10/10/18 Rx Inhal Maria Teresa (2.5 mg/3 ml) UD] Azithromycin [Z-Matt] 250 mg PO DAILY #6 tab 10/10/18 Rx Budesonide [Pulmicort] 1 mg IH BID #1 ampul.neb 10/10/18 Rx predniSONE [predniSONE Tab] 40 mg PO DAILY 5 Days tab 10/10/18 Rx Allergies/Adverse Reactions: Allergies Allergy/AdvReac Type Severity Reaction Status Date / Time atorvastatin calcium Allergy DIARRHEA Verified 06/08/17 15:28 [From Lipitor] codeine Allergy RASH Verified 06/08/17 15:28 aspirin AdvReac VOMITING Verified 04/23/18 11:20 Physical Exam - Constitutional Appears: Non-toxic, No Acute Distress, Chronically Ill - Head Exam Head Exam: ATRAUMATIC, NORMAL INSPECTION, NORMOCEPHALIC - Eye Exam Eye Exam: EOMI, Normal appearance. absent: Conjunctival injection, Scleral icterus Pupil Exam: absent: Irregular, Unequal - ENT Exam ENT Exam: Mucous Membranes Moist - Neck Exam Neck exam: Negative for: Lymphadenopathy, Thyromegaly - Respiratory Exam Respiratory Exam: Decreased Breath Sounds (mildly decreased breath sounds all dobson), Prolonged Expiratory Phase, Wheezes (notable expiratory wheezing appreciated in all dobson). absent: Accessory Muscle Use, Chest Wall Tenderness, Clear to Auscultation Bilateral, Rales, Rhonchi, Respiratory Distress, Stridor Additional comments: not grossly tachypnic, no dyspnea with speech, speaking in full sentences without needing to stop for breath, no cyanosis appreciated in fingertips - Cardiovascular Exam Cardiovascular Exam: REGULAR RHYTHM, RRR, +S1, +S2. absent: Bradycardia, Tachycardia, Irregular Rhythm, JVD, +S4 - GI/Abdominal Exam GI & Abdominal Exam: Normal Bowel Sounds, Soft. absent: Diminished Bowel Sounds, Distended, Firm, Hyperactive Bowel Sounds, Hypoactive Bowel Sounds, Rigid, Tenderness - Extremities Exam Extremities exam: Positive for: normal inspection, pedal pulses present. Negative for: calf tenderness, pedal edema, tenderness - Neurological Exam Additional comments: awake and alert, sitting up in bed comfortably moving all extremities spontaneously, follows all commands appropriately oriented to self, location, year - Psychiatric Exam Psychiatric exam: Normal Affect, Normal Mood - Skin Skin Exam: Dry, Intact, Normal Color, Warm Results - Vital Signs Recent Vital Signs: Last Vital Signs Temp 97.6 F 10/09/18 10:50 Pulse 89 10/09/18 10:50 Resp 16 10/09/18 10:50 BP 155/69 H 10/09/18 10:50 Pulse Ox 99 10/09/18 10:50 - Labs Result Diagrams: 10/09/18 11:15 10/09/18 11:15 Labs: Laboratory Results - last 24 hr 10/09/18 10/09/18 11:15 11:15 WBC 8.9 RBC 3.52 Hgb 10.2 L D Hct 32.6 L MCV 92.6 MCH 29.0 MCHC 31.3 RDW 13.5 Plt Count 240 MPV 9.9 Neut % (Auto) 74.4 H Lymph % (Auto) 11.4 L Kidder % (Auto) 11.1 H Eos % (Auto) 2.5 Baso % (Auto) 0.6 Lymph # (Auto) 1.0 L Kidder # (Auto) 1.0 H Eos # (Auto) 0.2 Baso # (Auto) 0.05 Absolute Neuts (auto) 6.62 H Sodium 140 Potassium 4.1 Chloride 103 Carbon Dioxide 32 Anion Gap 10 BUN 10 Creatinine 0.8 Est GFR ( Amer) > 60 Est GFR (Non-Af Amer) > 60 Random Glucose 132 H Calcium 8.9 Magnesium 2.0 Total Bilirubin 0.4 AST 27 ALT 19 Alkaline Phosphatase 93 Lactate Dehydrogenase 409 Total Creatine Kinase 49 Troponin I 0.01 Total Protein 7.0 Albumin 3.8 Globulin 3.3 Albumin/Globulin Ratio 1.2 Assessment & Plan - Assessment and Plan (Free Text) Assessment: This is a 88 year old female with PMH of diverticulosis, DM, HTN, HLD, COPD/emphysema, and unspecified "kidney problems" who presents to the emergency department complaining of worsening shortness of breath and cough x1 week, initially with clear/white sputum, but starting with green sputum today. She is being admitted for suspected COPD exacerbation. Plan: 1) Worsening shortness of breath/cough x1 week ddx: COPD exacerbation vs PNA vs URI 2) COPD/emphysema 3) HTN 4) HLD 5) DM 6) Unspecified kidney problem (suspect CKD 2/2 HTN and/or DM) 7) Hx anemia on iron supplementation -CXR obtained in ED negative for acute processes, and no leukocytosis on admission labs, less likely PNA -No sick contacts as per pt and family, less likely URI -Trop negative and NSR on EKG, do not suspect ACS -Some improvement in ED with steroids, mag, and Duonebsm so more likely COPD exacerbation Continue home budesonide and brovana PRN Nebs q2 Miracle albuterol q6 Solumedrol 40mg IV q12, will taper down as tolerated and transition to PO prednisone prior to discharge Expect elevated leukocytosis 2/2 steroids, continue to monitor for fevers, other signs/sx of infectious process Empirically covering with Zithromax for COPD exacerbation (500mg IV today, 250mg IV daily starting tomorrow) Continue home robitussin PRN for secretions/cough suppression -BP currently under control, continue home Coreg and Losartan -Hx anemia, continue home iron supplementation and Miralax -Continue home Zetia and statin for HLD -Pt reports hx of elevated BG while on steroids, current BG wnl, will start on Medium dose sliding-scale, adjust as needed, holding home oral hypoglycemics -Pulse ox in ED consistently at 85-88% at time of exam, supplemental O2 NC ordered, goal is SaO2 > 88% and < 100% Dispo: Admit to med/surg, tx with IV steroids, abx, and supplemental O2 for COPD exacerbation, likely d/c home after resolved Patient reviewed and discussed with attending, Dr. Medina <Aroldo Medina - Last Filed: 10/10/18 13:21> Results - Vital Signs Recent Vital Signs: Last Vital Signs Temp 97.8 F 10/10/18 06:00 Pulse 72 10/10/18 06:00 Resp 18 10/10/18 06:00 BP 130/63 10/10/18 06:00 Pulse Ox 93 L 10/10/18 06:00 - Labs Result Diagrams: 10/10/18 08:13 10/10/18 08:13 Labs: Laboratory Results - last 24 hr 10/09/18 10/10/18 10/10/18 20:31 06:23 08:13 WBC 8.2 RBC 3.42 L Hgb 9.9 L Hct 31.0 L MCV 90.6 MCH 28.9 MCHC 31.9 RDW 13.4 Plt Count 290 MPV 10.4 Neut % (Auto) 90.1 H Lymph % (Auto) 8.3 L Kidder % (Auto) 1.6 Eos % (Auto) 0.0 L Baso % (Auto) 0.0 Lymph # (Auto) 0.7 L Kidder # (Auto) 0.1 Eos # (Auto) 0.0 Baso # (Auto) 0.00 Absolute Neuts (auto) 7.43 H Neutrophils % (Manual) 92 H Lymphocytes % (Manual) 6 L Monocytes % (Manual) 2 Platelet Evaluation Normal Hypochromasia 1+ Poikilocytosis (manual Slight Anisocytosis (manual) 1+ Sodium Potassium Chloride Carbon Dioxide Anion Gap BUN Creatinine Est GFR ( Amer) Est GFR (Non-Af Amer) POC Glucose (mg/dL) 362 H 244 H Random Glucose Calcium Total Bilirubin AST ALT Alkaline Phosphatase Total Protein Albumin Globulin Albumin/Globulin Ratio 10/10/18 10/10/18 08:13 11:27 WBC RBC Hgb Hct MCV MCH MCHC RDW Plt Count MPV Neut % (Auto) Lymph % (Auto) Kidder % (Auto) Eos % (Auto) Baso % (Auto) Lymph # (Auto) Kidder # (Auto) Eos # (Auto) Baso # (Auto) Absolute Neuts (auto) Neutrophils % (Manual) Lymphocytes % (Manual) Monocytes % (Manual) Platelet Evaluation Hypochromasia Poikilocytosis (manual Anisocytosis (manual) Sodium 138 Potassium 4.2 Chloride 103 Carbon Dioxide 28 Anion Gap 12 BUN 21 Creatinine 0.9 Est GFR ( Amer) > 60 Est GFR (Non-Af Amer) 59 POC Glucose (mg/dL) 233 H Random Glucose 256 H Calcium 8.7 Total Bilirubin 0.3 AST 25 ALT 33 Alkaline Phosphatase 99 Total Protein 7.2 Albumin 3.9 Globulin 3.3 Albumin/Globulin Ratio 1.2 Attending/Attestation - Attestation I have personally seen and examined this patient.: Yes I have fully participated in the care of the patient.: Yes I have reviewed all pertinent clinical information: Yes Notes (Text): 10/10/18 13:16 Medical record note made by the resident after discussion with my direction and input after the patient was personally seen and examined by me. I have reviewed the chart and agree that the record accurately reflects by personal performance of the history, physical exam, data review, and medical decision-making, in the course for the patient. I have also personally directed the plan of care. 88 F with PMH of diverticulosis, DM, HTN, HLD, COPD/emphysema is admitted with COPD exacerbation.Patient is wheezing and is hypoxic in ER. Agreed with Neb/Steroid and antibiotics. We will monitor blood sugars. Issue of DNR/DNI was discussed in detail with patient and family. Patient is full code at this time. Management plan was discussed in detail with patient and family. Education was provided 10/10/18 13:20
[2018-10-09] MEDS: Arformoterol 15 mcg/2 ml Inh Sol IH SCH (20:20)
[2018-10-09] MEDS: Budesonide 0.5 mg/2 ml Inhal Susp UD IH SCH (20:20)
[2018-10-09] MEDS: Albuterol 0.083% Inhal Sol (2.5 mg/3 mL) UD INH SCH (20:21)
--- NOTE | 2018-10-09 20:58 | CARD ---
APPROVED REPORT Date of service: 10/09/2018 EKG Measurement Heart [id number] <Conclusion> Normal sinus rhythm Incomplete left bundle branch block ST & T wave abnormalities- possibly secondary to conduction delay CCR Abnormal ECG
[2018-10-09] MEDS: Insulin Lispro (humaLOG) MEDIUM Coverage SC SCH (22:14)
[2018-10-09] MEDS: MethylPREDNISolone 40 mg Vial IVP SCH (22:14)
[2018-10-10] MEDS: Albuterol 0.083% Inhal Sol (2.5 mg/3 mL) UD INH SCH (01:11)
[2018-10-10] MEDS: Arformoterol 15 mcg/2 ml Inh Sol IH SCH ×2 (07:20→19:37)
[2018-10-10] MEDS: Albuterol-Ipratrop 3 mg / 0.5 (3 ml) UD IH SCH ×3 (07:20→20:00)
[2018-10-10] MEDS: Budesonide 0.5 mg/2 ml Inhal Susp UD IH SCH ×2 (07:20→19:38)
[2018-10-10] MEDS: Insulin Lispro (humaLOG) MEDIUM Coverage SC SCH ×4 (08:36→21:51)
[2018-10-10 08:59] LABS: HEMOGLOBIN 9.9 g/dL (12.0-16.0); LYMPH # 0.7 (1.2-3.4); LYMPH % 8.3 % (22.0-35.0); MEAN CELL VOLUME 90.6 fl (80.0-105.0); MEAN CORPUSCULAR HEMOGLOBIN 28.9 pg (25.0-35.0); MEAN CORPUSCULAR HGB CONC 31.9 g/dl (31.0-37.0); MEAN PLATELET VOLUME 10.4 fl (7.0-11.0); MONO # 0.1 (0.1-0.6); MONO % 1.6 % (1.0-6.0); PLATELET COUNT 290 10^3/uL (120.0-450.0); RBC 3.42 10^6/uL (3.5-6.1); RED CELL DISTRIBUTION WIDTH 13.4 % (11.5-14.5); WHITE BLOOD COUNT 8.2 10^3/uL (4.5-11.0)
[2018-10-10 09:17] LABS: ALB/GLOB RATIO 1.2 (1.1-1.8); ALBUMIN 3.9 g/dL (3.0-4.8); ALT/SGPT 33 U/L (7-56); AST/SGOT 25 U/L (14-36); BLOOD UREA NITROGEN 21 mg/dL (7-21); CALCIUM 8.7 mg/dL (8.4-10.5); GFR NON-AFRICAN AMERICAN 59
[2018-10-10 09:42] LABS: LYMPHOCYTE 6 % (22.0-35.0); MONOCYTE 2 % (1.0-6.0); NEUTROPHIL 92 % (50.0-70.0); PLATELET ESTIMATE NORMAL (NORMAL)
[2018-10-10 09:43] LABS: ANISOCYTOSIS 1+; HYPOCHROMIA 1+; POIKILOCYTOSIS SLIGHT
[2018-10-10] MEDS: Enoxaparin 40 mg Syringe SC SCH (10:18)
[2018-10-10] MEDS: POLYETHYLENE GLYCOL 3350 17 GM/Dose PACKET PO SCH (10:19)
[2018-10-10] MEDS: MethylPREDNISolone 40 mg Vial IVP SCH (10:19)
[2018-10-10] MEDS: Azithromycin 250 MG in Sodium Chloride 0.9% 250 ML IVPB SCH (10:20)
[2018-10-10] MEDS: Iron Complex Polysacch 150mg Cap PO SCH (10:20)
[2018-10-10] MEDS: ROSUVASTATIN CALCIUM 20 MG PO SCH (10:21)
--- NOTE | 2018-10-10 10:37 | CP.PCM.APN ---
Subjective - Date & Time of Evaluation Date of Evaluation: 10/10/18 Time of Evaluation: 10:00 - Subjective Subjective: Pt seen and examined at bedside. States that shortness of breath is improved. Denies chest pain. Objective - Vital Signs/Intake and Output Vital Signs (last 24 hours): Temp Pulse Resp BP Pulse Ox 97.8 F 72 18 130/63 93 L 10/10/18 06:00 10/10/18 06:00 10/10/18 06:00 10/10/18 06:00 10/10/18 06:00 - Medications Medications: Current Medications Albuterol/Ipratropium (Duoneb 3 Mg/0.5 Mg (3 Ml) Ud) 3 ml IH Q2H PRN PRN Reason: Shortness of Breath Albuterol/Ipratropium (Duoneb 3 Mg/0.5 Mg (3 Ml) Ud) 3 ml IH [id number] [facility] Last Admin: 10/10/18 07:20 Dose: 3 ml Arformoterol Tartrate (Brovana) 15 mcg IH [id number] [facility] Last Admin: 10/10/18 07:20 Dose: 15 mcg Budesonide (Pulmicort Respules) 1 mg IH [id number] [facility] Last Admin: 10/10/18 07:20 Dose: 1 mg Carvedilol (Coreg) 3.125 mg PO BID [facility] Last Admin: 10/10/18 10:20 Dose: 3.125 mg Ezetimibe (Zetia) 10 mg PO DAILY [facility] Last Admin: 10/10/18 10:20 Dose: 10 mg Enoxaparin Sodium (Lovenox) 40 mg SC DAILY [facility]; Protocol Last Admin: 10/10/18 10:18 Dose: 40 mg Famotidine (Pepcid) 20 mg PO 1000,2200 [facility] Last Admin: 10/10/18 10:20 Dose: 20 mg Guaifenesin (Robitussin) 200 mg PO Q4H PRN PRN Reason: Cough and congestion Last Admin: 10/10/18 00:55 Dose: 200 mg Azithromycin 250 mg/ Sodium (Chloride) 250 mls @ 167 mls/hr IVPB DAILY [facility]; Protocol Last Admin: 10/10/18 10:20 Dose: 167 mls/hr Insulin Human Lispro (Humalog Med) 0 units SC ACHS [facility]; Protocol Last Admin: 10/10/18 08:36 Dose: 3 u Losartan Potassium (Cozaar) 25 mg PO DAILY [facility] Last Admin: 10/10/18 10:20 Dose: 25 mg Methylprednisolone (Solu-Medrol) 40 mg IVP Q12 [facility] Last Admin: 10/10/18 10:19 Dose: 40 mg Rosuvastatin Calcium [Crestor] 20 Mg ( Home) 20 mg PO DAILY [facility] Last Admin: 10/10/18 10:21 Dose: Not Given Polyethylene Glycol (Miralax) 17 gm PO DAILY [facility] Last Admin: 10/10/18 10:19 Dose: 17 gm Polysaccharide Iron Complex (Ferrex-150) 150 mg PO DAILY [facility] Last Admin: 10/10/18 10:20 Dose: 150 mg - Labs Labs: 10/10/18 08:13 10/10/18 08:13 - Constitutional Appears: No Acute Distress - ENT Exam ENT Exam: Mucous Membranes Moist, Normal Exam - Respiratory Exam Respiratory Exam: Wheezes - Cardiovascular Exam Cardiovascular Exam: REGULAR RHYTHM, +S1, +S2 - GI/Abdominal Exam GI & Abdominal Exam: Soft, Normal Bowel Sounds - Rectal Exam Rectal Exam: Deferred - Neurological Exam Neurological Exam: Awake, Oriented x3 Assessment and Plan - Assessment and Plan (Free Text) Assessment: Pt is an 88 y.o. female with pmhx of diverticulosis, DM, emphysema, HLD and HTN who presented in ED for shortness of breath, cough x1week and failed outpatient treatment. She is currently admitted and being treated for COPD exacerbation. Pt on Solumedrol and Azithromycin.
--- NOTE | 2018-10-10 10:42 | IP.NPCORE ---
COPD Progress Note - COPD Progress Note Symptoms:: Increase in Dyspnea, Cough Initial CXR:: COPD Date:: 10/09/18 Time:: 12:00 ABG Not Indicated (Symptoms Improved): No Nebulizers Q2-4 hrs:: Duonebs/Albuterol Therapy Antibiotics (Name/Dose/Frequency):: Azithromycin 250mg IV daily Systemic Steroids w/ methylprednisolone Name/Dose/Frequency:: Solumedrol 40mg IV q12 Oxygen Delivery Method: Nasal Cannula Smoking cessation counseling all stages copd exacerbation: No (former smoker)
[2018-10-10] MEDS ORDERED: guaiFENesin DM 200 mg-20 mg/10 ml UD PO PRN (13:32)
--- NOTE | 2018-10-10 13:35 | CP.PCM.PN ---
Subjective - Date & Time of Evaluation Date of Evaluation: 10/10/18 Time of Evaluation: 13:31 - Subjective Subjective: Irais Montalvo, PGY-1, Internal Medicine Progress Note for Dr. Medina Patient seen and evaluated at bedside. Patient had no acute overnight events. Patient reports shortness of breath and cough though shortness of breath has now improved. 12-point ROS was unremarkable except for what was mentioned above. Objective - Vital Signs/Intake and Output Vital Signs (last 24 hours): Temp Pulse Resp BP Pulse Ox 97.8 F 72 18 130/63 93 L 10/10/18 06:00 10/10/18 06:00 10/10/18 06:00 10/10/18 06:00 10/10/18 06:00 - Medications Medications: Current Medications Albuterol/Ipratropium (Duoneb 3 Mg/0.5 Mg (3 Ml) Ud) 3 ml IH Q2H PRN PRN Reason: Shortness of Breath Albuterol/Ipratropium (Duoneb 3 Mg/0.5 Mg (3 Ml) Ud) 3 ml IH [id number] [facility] Last Admin: 10/10/18 07:20 Dose: 3 ml Arformoterol Tartrate (Brovana) 15 mcg IH [id number] [facility] Last Admin: 10/10/18 07:20 Dose: 15 mcg Budesonide (Pulmicort Respules) 1 mg IH [id number] [facility] Last Admin: 10/10/18 07:20 Dose: 1 mg Carvedilol (Coreg) 3.125 mg PO BID [facility] Last Admin: 10/10/18 10:20 Dose: 3.125 mg Ezetimibe (Zetia) 10 mg PO DAILY [facility] Last Admin: 10/10/18 10:20 Dose: 10 mg Enoxaparin Sodium (Lovenox) 40 mg SC DAILY [facility]; Protocol Last Admin: 10/10/18 10:18 Dose: 40 mg Famotidine (Pepcid) 20 mg PO 1000,2200 [facility] Last Admin: 10/10/18 10:20 Dose: 20 mg Guaifenesin (Robitussin) 200 mg PO Q4H PRN PRN Reason: Cough and congestion Last Admin: 10/10/18 00:55 Dose: 200 mg Azithromycin 250 mg/ Sodium (Chloride) 250 mls @ 167 mls/hr IVPB DAILY [facility]; Protocol Last Admin: 10/10/18 10:20 Dose: 167 mls/hr Insulin Human Lispro (Humalog Med) 0 units SC ACHS [facility]; Protocol Last Admin: 10/10/18 12:13 Dose: 8 u Losartan Potassium (Cozaar) 25 mg PO DAILY [facility] Last Admin: 10/10/18 10:20 Dose: 25 mg Methylprednisolone (Solu-Medrol) 40 mg IVP Q12 [facility] Last Admin: 10/10/18 10:19 Dose: 40 mg Rosuvastatin Calcium [Crestor] 20 Mg ( Home) 20 mg PO DAILY [facility] Last Admin: 10/10/18 10:21 Dose: Not Given Polyethylene Glycol (Miralax) 17 gm PO DAILY [facility] Last Admin: 10/10/18 10:19 Dose: 17 gm Polysaccharide Iron Complex (Ferrex-150) 150 mg PO DAILY [facility] Last Admin: 10/10/18 10:20 Dose: 150 mg - Labs Labs: 10/10/18 08:13 10/10/18 08:13 - Constitutional Appears: Well, Non-toxic, No Acute Distress - Head Exam Head Exam: ATRAUMATIC, NORMAL INSPECTION, NORMOCEPHALIC - Eye Exam Eye Exam: EOMI, PERRL - ENT Exam ENT Exam: Mucous Membranes Moist - Respiratory Exam Respiratory Exam: Wheezes (diffuse mild), NORMAL BREATHING PATTERN - Cardiovascular Exam Cardiovascular Exam: REGULAR RHYTHM, RRR, +S1, +S2. absent: Clicks, Gallop, Rubs - GI/Abdominal Exam GI & Abdominal Exam: Soft, Normal Bowel Sounds. absent: Distended, Firm, Guarding, Tenderness - Extremities Exam Extremities Exam: Full ROM, Normal Capillary Refill, Normal Inspection - Neurological Exam Neurological Exam: Alert, Awake, CN II-XII Intact, Oriented x3 - Psychiatric Exam Psychiatric exam: Normal Affect, Normal Mood - Skin Skin Exam: Dry, Intact, Normal Color Assessment and Plan - Assessment and Plan (Free Text) Assessment: 88 year old female with past medical history of diverticulosis, diabetes mellitus type II, hypertension, hyperlipidemia, COPD/emyphsema presented with worsening shortness of breath and cough for 1 week likely 2/2 to COPD exacerbation. Plan: COPD exacerbation -Chest X ray: no active disease -Continue with duonebs Q6 and Q2PRN -Continue with brovana and pulmicort -Reduced solumedrol to 40 mg daily -Continue with azithromycin started on 10/09 -Continue with nasal cannula O2 as needed -Started robitussin DM for congestion -Consulted PT for helping with ambulation and determining oxygen requirements Hypertension -Continue with low raphael Diabetes Mellitus -Follow up HgbA1c -Continue with medium sliding scale insulin -Accucheck ACHS -Uncontrolled glucose on presentation likely 2/2 to methylprednisone Hyperlipidemia -Continue with rosuvastatin and zetia Iron deficiency anemia -Continue with iron polysaccharide -Continue with miralax as iron causes constipation DVT prophylaxis: lovenox GI prophylaxis: pepcid Patient plan discussed with Dr. Medina
[2018-10-11] MEDS: Albuterol-Ipratrop 3 mg / 0.5 (3 ml) UD IH SCH ×3 (01:30→14:06)
[2018-10-11 07:26] LABS: BASO # 0.01 K/mm3 (0.0-2.0); BASO % 0.1 % (0.0-3.0); HEMOGLOBIN 9.3 g/dL (12.0-16.0); LYMPH # 1.1 (1.2-3.4); LYMPH % 7.5 % (22.0-35.0); MEAN CORPUSCULAR HEMOGLOBIN 28.7 pg (25.0-35.0); MEAN CORPUSCULAR HGB CONC 31.5 g/dl (31.0-37.0); MEAN PLATELET VOLUME 10.1 fl (7.0-11.0); MONO # 0.7 (0.1-0.6); MONO % 4.8 % (1.0-6.0); RBC 3.24 10^6/uL (3.5-6.1); RED CELL DISTRIBUTION WIDTH 13.4 % (11.5-14.5); WHITE BLOOD COUNT 14.3 10^3/uL (4.5-11.0)
[2018-10-11] MEDS: Budesonide 0.5 mg/2 ml Inhal Susp UD IH SCH (07:34)
[2018-10-11] MEDS: Arformoterol 15 mcg/2 ml Inh Sol IH SCH (07:34)
[2018-10-11 07:37] LABS: ALT/SGPT 30 U/L (7-56); AST/SGOT 26 U/L (14-36); BLOOD UREA NITROGEN 30 mg/dL (7-21); CALCIUM 8.4 mg/dL (8.4-10.5); GFR NON-AFRICAN AMERICAN 59
[2018-10-11 07:40] LABS: ALBUMIN 3.3 g/dL (3.0-4.8)
[2018-10-11 07:52] LABS: ALB/GLOB RATIO 1.1 (1.1-1.8)
[2018-10-11] MEDS: Insulin Lispro (humaLOG) MEDIUM Coverage SC SCH ×2 (07:54→11:43)
[2018-10-11 08:11] VITALS: BP 139/54; PULSE 70; RESP 17; TEMP 97.9; O2SAT 95
[2018-10-11] MEDS ORDERED: MethylPREDNISolone 40 mg Vial IVP SCH (10:00)
[2018-10-11] MEDS: Iron Complex Polysacch 150mg Cap PO SCH (10:06)
[2018-10-11] MEDS: Enoxaparin 40 mg Syringe SC SCH (10:06)
[2018-10-11] MEDS: POLYETHYLENE GLYCOL 3350 17 GM/Dose PACKET PO SCH (10:06)
[2018-10-11] MEDS: ROSUVASTATIN CALCIUM 20 MG PO SCH (10:07)
[2018-10-11] MEDS: Azithromycin 250 MG in Sodium Chloride 0.9% 250 ML IVPB SCH (10:08)
--- NOTE | 2018-10-11 16:26 | CP.PCM.DIS ---
Provider - Provider Date of Admission: 10/09/18 16:47 Attending physician: Deborah Villagran MD Primary care physician: Omer Olguin MD Time Spent in preparation of Discharge (in minutes): 40 Diagnosis - Discharge Diagnosis (1) COPD exacerbation Status: Acute Hospital Course - Lab Results Lab Results: Micro Results 10/09/18 11:15 Blood Blood Culture - Preliminary NO GROWTH AFTER 48 HOURS 10/09/18 10:50 Blood Blood Culture - Preliminary NO GROWTH AFTER 48 HOURS Most Recent Lab Values WBC 14.3 10^3/uL (4.5-11.0) H D 10/11/18 07:00 RBC 3.24 10^6/uL (3.5-6.1) L 10/11/18 07:00 Hgb 9.3 g/dL (12.0-16.0) L 10/11/18 07:00 Hct 29.5 % (36.0-48.0) L 10/11/18 07:00 MCV 91.0 fl (80.0-105.0) 10/11/18 07:00 MCH 28.7 pg (25.0-35.0) 10/11/18 07:00 MCHC 31.5 g/dl (31.0-37.0) 10/11/18 07:00 RDW 13.4 % (11.5-14.5) 10/11/18 07:00 Plt Count 300 10^3/uL (120.0-450.0) 10/11/18 07:00 MPV 10.1 fl (7.0-11.0) 10/11/18 07:00 Neut % (Auto) 87.6 % (50.0-68.0) H 10/11/18 07:00 Lymph % (Auto) 7.5 % (22.0-35.0) L 10/11/18 07:00 [place] % (Auto) 4.8 % (1.0-6.0) 10/11/18 07:00 Eos % (Auto) 0.0 % (1.5-5.0) L 10/11/18 07:00 Baso % (Auto) 0.1 % (0.0-3.0) 10/11/18 07:00 Lymph # (Auto) 1.1 (1.2-3.4) L 10/11/18 07:00 [place] # (Auto) 0.7 (0.1-0.6) H 10/11/18 07:00 Eos # (Auto) 0.0 (0.0-0.7) 10/11/18 07:00 Baso # (Auto) 0.01 K/mm3 (0.0-2.0) 10/11/18 07:00 Absolute Neuts (auto) 12.52 (1.4-6.5) H 10/11/18 07:00 Neutrophils % (Manual) 92 % (50.0-70.0) H 10/10/18 08:13 Lymphocytes % (Manual) 6 % (22.0-35.0) L 10/10/18 08:13 Monocytes % (Manual) 2 % (1.0-6.0) 10/10/18 08:13 Platelet Evaluation Normal (NORMAL) 10/10/18 08:13 Hypochromasia 1+ 10/10/18 08:13 Poikilocytosis (manual Slight 10/10/18 08:13 Anisocytosis (manual) 1+ 10/10/18 08:13 Sodium 139 mmol/L (132-148) 10/11/18 07:00 Potassium 5.0 mmol/L (3.6-5.0) 10/11/18 07:00 Chloride 105 mmol/L (98-107) 10/11/18 07:00 Carbon Dioxide 31 mmol/L (21-33) 10/11/18 07:00 Anion Gap 8 (10-20) L 10/11/18 07:00 BUN 30 mg/dL (7-21) H 10/11/18 07:00 Creatinine 0.9 mg/dl (0.7-1.2) 10/11/18 07:00 Est GFR ( Amer) > 60 10/11/18 07:00 Est GFR (Non-Af Amer) 59 10/11/18 07:00 POC Glucose (mg/dL) 214 mg/dL (65-110) H 10/11/18 11:40 Random Glucose 165 mg/dL (70-110) H 10/11/18 07:00 Hemoglobin A1c 6.7 % (4.2-6.5) H 10/10/18 14:20 Calcium 8.4 mg/dL (8.4-10.5) 10/11/18 07:00 Magnesium 2.0 mg/dL (1.7-2.2) 10/09/18 11:15 Total Bilirubin 0.1 mg/dL (0.2-1.3) L 10/11/18 07:00 AST 26 U/L (14-36) 10/11/18 07:00 ALT 30 U/L (7-56) 10/11/18 07:00 Alkaline Phosphatase 80 U/L (38-126) 10/11/18 07:00 Lactate Dehydrogenase 409 U/L (333-699) 10/09/18 11:15 Total Creatine Kinase 49 U/L (35-230) 10/09/18 11:15 Troponin I 0.01 ng/mL 10/09/18 11:15 Total Protein 6.4 g/dL (5.8-8.3) 10/11/18 07:00 Albumin 3.3 g/dL (3.0-4.8) 10/11/18 07:00 Globulin 3.1 gm/dL 10/11/18 07:00 Albumin/Globulin Ratio 1.1 (1.1-1.8) 10/11/18 07:00 - Hospital Course Hospital Course: Hospital Course Patient is an 88 year old female with known past medical history of DM, HTN, HLD, COPD/emphysema, diverticulosis who presented to [facility] ED complaining of shortness of breath x 1 week with clear/white progression towards green sputum on admission. Patient indicated that she was given pro AIR inhaler outpatient without improvement of symptoms. Patient was admitted on 10/09/2018 for worsening shortness of breath/cough x 1 week secondary to COPD exacerbation vs. URI. Patient was evaluated with Chest xray in ED showing no acute processes. Patient was given IV steroids, duonebs in ED with some improvement of her symptoms. Patient was admitted to medical surgical floor for further evaluation and management. Patient was empirically covered with azithromyocin, placed on IV steroids, scheduled albuterol and prn Nebs q2h, continued home meds of budesonide and brovana and given robitussin for cough symptoms. Patient HTN was treated with Coreg and losartan, BP was monitored during stay and was noted to be slightly elevated from baseline with elevated BP of 168/72. Further trending of BP showed BP of 130s systolic and 60s diastolic. Patient HLD was treated with rosuvastatin and zetia. Patient was monitored overnight on 10/10/2018 for continued respiratory difficulties. Physical therapy evaluated patient and recommended for home PT when medically cleared. Social work coordinated care. PT evaluated patient for O2 requirements with walking test. Patient did not meet criteria for home O2. Patient was medically optimized and noted to have proficient respiratory status, hemodynamic stability safe for discharge. Discharge planning including medication reconciliation, outpatient follow up, signs and symptoms to be concerned for return to hospital. This is a summary of patient hospital course, please see chart for full detail. Discharge Exam - Head Exam Head Exam: ATRAUMATIC, NORMAL INSPECTION, NORMOCEPHALIC - Eye Exam Eye Exam: EOMI, PERRL - ENT Exam ENT Exam: Mucous Membranes Moist - Neck Exam Neck exam: Full Rom - Respiratory Exam Respiratory Exam: Wheezes (diffuse, in all four quadrants, improved since admission) - Cardiovascular Exam Cardiovascular Exam: REGULAR RHYTHM, +S1, +S2 - GI/Abdominal Exam GI & Abdominal Exam: Normal Bowel Sounds, Soft, Unremarkable. absent: Tenderness - Extremities Exam Extremities exam: full ROM, normal inspection - Neurological Exam Neurological exam: Alert, CN II-XII Intact, Normal Gait, Oriented x3, Reflexes Normal - Psychiatric Exam Psychiatric exam: Normal Affect, Normal Mood - Skin Skin Exam: Dry, Intact Discharge Plan - Discharge Medications Prescriptions: Albuterol 0.083% [Albuterol 0.083% Inhal Maria Teresa (2.5 mg/3 ml) UD] 2.5 mg IH Q6H #1 inh amLODIPine [Norvasc] 2.5 mg PO BID #30 tab Arformoterol [Brovana] 15 mcg IH [id number] #1 neb Azithromycin [Z-Matt] 250 mg PO DAILY #6 tab Budesonide [Pulmicort] 1 mg IH BID #1 ampul.neb Montelukast [Singulair] 10 mg PO DAILY #30 tab predniSONE [Prednisone] 40 mg PO DAILY 3 Days tab raNITIdine [Zantac Soln 5ml] 150 mg PO BID #30 ml SITagliptin [Januvia] 50 mg PO DAILY #7 tab - Follow Up Plan Condition: FAIR Disposition: HOME/ ROUTINE Instructions: Exacerbation of COPD (DC) Additional Instructions: Please follow up with primary care physician within 3-5 days. Please take all home medications as prescribed. Please take prednisone 1 tablet daily for 3 days Please take albuterol, pulmicort, brovana inhalers as prescribed. Please take Z-matt 1 tablet daily for 6 days. Please return to the emergency room if you have any new or concerning symptoms. Referrals: Omer Olguin MD [Primary Care Provider] -
[2018-10-11 16:34] LABS: URINE BILIRUBIN NEGATIVE (NEGATIVE); URINE BLOOD NEGATIVE (NEGATIVE); URINE GLUCOSE (UA) NEGATIVE (NEGATIVE); URINE LEUKOCYTE ESTERASE SMALL Leu/uL (NEGATIVE); URINE PROTEIN NEGATIVE mg/dL (<30 mg/dL); URINE UROBILINOGEN 0.2 E.U./dL (<1 E.U./dL)
[2018-10-11 16:35] LABS: URINE APPEARANCE CLEAR (CLEAR); URINE COLOR LIGHT YELLOW (YELLOW)
== END 2018-10-11 16:06 | disposition home health service (06) | DRG 192 ==
LOC: ED 10:28 → ERH 16:47 → 5RNO 18:40
PROVIDERS: ADMIT Internal Medicine; ATTEND Internal Medicine
DX: J43.9 Emphysema, unspecified (principal); I12.9 Hypertensive chronic kidney disease with stage 1 through stage 4 chronic kidney disease, or unspecified chronic kidney disease; E11.22 Type 2 diabetes mellitus with diabetic chronic kidney disease; N18.2 Chronic kidney disease, stage 2 (mild); K57.90 Diverticulosis of intestine, part unspecified, without perforation or abscess without bleeding; D64.9 Anemia, unspecified; E78.5 Hyperlipidemia, unspecified; Z79.84 Long term (current) use of oral hypoglycemic drugs; Z87.891 Personal history of nicotine dependence; Z88.5 Allergy status to narcotic agent